=== PATIENT | male | born 1950 | race African-American/Black ===

== ENCOUNTER 2020-03-30 19:43 | Inpatient (IN) | payer MEDICARE, MEDICAID, SELFPAY ==
--- NOTE | 2020-03-30 | ECG_ITS ---
Test Reason : GI BLEED Blood Pressure : / mmHG Vent. Rate : 093 BPM Atrial Rate : 093 BPM P-R Int : 190 ms QRS Dur : 140 ms QT Int : 406 ms P-R-T Axes : 057 -67 114 degrees QTc Int : 504 ms Normal sinus rhythm Right atrial enlargement Right bundle branch block Left anterior fascicular block Bifascicular block Left ventricular hypertrophy with repolarization abnormality Abnormal ECG When compared with ECG of 04-NOV-2019 03:53, Heart rate has increased Referred By: Basim Galo Electronically Signed By:EMELY DOVER MD
--- NOTE | 2020-03-30 | XR_ITS ---
EXAMINATION: XR CHEST CLINICAL INFORMATION: NG tube placement COMPARISON: None TECHNIQUE: Frontal portable view of the chest was obtained. 9:14 PM FINDINGS: Tip of nasogastric tube is in stomach. Lungs are clear. No pulmonary vascular congestion. There is no pleural effusion or pneumothorax. The cardiac and the mediastinal contours are normal. Vascular stent seen in the right upper arm. There are surgical clips in the soft tissues of the left upper extremity. Status post left humeral head replacement. Multilevel degenerative spondylosis spine. IMPRESSION: 1. Nasogastric tube in stomach. 2. No acute abnormality the chest.
[2020-03-30 19:52] VITALS: BP 135/70; BP 156/74; PULSE 90; PULSE 95; RESP 16; TEMP 36.7; O2SAT 98; BMI 23.6
--- NOTE | 2020-03-30 20:29 | ED_ITS ---
HPI - Nausea/Vomiting/Diarrhea General Chief complaint: Nausea/Vomiting/Diarrhea Stated complaint: vomiting Time Seen by Provider: 03/30/20 20:12 Source: patient and EMS History of Present Illness HPI Narrative: 69-year-old male states vomiting since yesterday. States of upper mid abdominal pain. No dizziness. Denies chest pain or shortness of breath. denies any blood from stool however does state in his vomit looks dark red that started earlier today. Did get dialysis today had full dialysis MD elicited complaint: nausea and vomiting Associated nausea: Yes Associated abdominal pain: Yes Severity: mild Quality: cramping Related Data Home Medications Medication Instructions Recorded Confirmed aspirin [Aspir-81] 81 mg 03/30/20 carvedilol 25 mg PO BID 03/30/20 03/30/20 fosinopril 40 mg PO DAILY 03/30/20 03/30/20 megestrol [Megace] 400 mg PO DAILY 03/30/20 03/30/20 minoxidil 5 mg PO BID 03/30/20 03/30/20 nifedipine 90 PO 03/30/20 omeprazole [Prilosec] 20 mg PO DAILY 03/30/20 03/30/20 ondansetron 8 mg 03/30/20 oxycodone-acetaminophen [Percocet] 5 tab 03/30/20 polyethylene glycol 3350 [Miralax] 17 g PO DAILY 03/30/20 03/30/20 rosuvastatin [Crestor] 5 mg PO DAILY 03/30/20 03/30/20 sevelamer carbonate [Renvela] 800 mg PO TID 03/30/20 03/30/20 Allergies Allergy/AdvReac Type Severity Reaction Status Date / Time metformin [METFORMIN] Allergy Intermediate IT MESSES Verified 03/30/20 20:02 ME UP Ogthhyj-Lcz-Pkj Reductase Allergy Intermediate NAUSEA Verified 03/30/20 20:02 Inhibitor [FTEBRVA-MZI-JMC REDUCTASE INHIBITOR] cephalexin [From KEFLEX] Allergy Unknown UNSPECIFIED Verified 03/30/20 20:02 IT MESSES ME UP any form of statin Allergy Unknown Unknown Uncoded 03/30/20 20:02 glucophage Allergy Unknown Diarrhea Uncoded 03/30/20 20:02 Review of Systems Review of Systems: Yes all other systems are reviewed and are negative Constitutional: Constitutional: Reports as per HPI Comments: Constitutional : No Weight loss, No Fever, No Chills, No Night Sweats, No Fatigue, No Malaise ENT/Mouth : No Hearing loss, No Ear Pain, No Nasal Congestion, No Sinus Pain, No Hoarseness, No sore throat, No Rhinorrhea, No Swallowing Difficulty Eyes: No Eye Pain, No Swelling, No Redness, No Foreign Body, No Discharge, No Vision Changes Cardiovascular : No Chest Pain, No SOB, No Dyspnea on Exertion, No Orthopnea, No Edema, No Palpitations Respiratory : No Cough, No Sputum, No Wheezing, No Smoke Exposure, No Dyspnea Gastrointestinal : positiveNausea, positive Vomiting, No Diarrhea, No Constipation, positiveabdominal Pain, No Hematochezia, No Melena Genitourinary : no irregular bleeding, No Dysuria, No Urinary Frequency, No Hematuria, No Urinary Incontinence, No Urgency, No Flank Pain, No Urinary Flow Changes, No Hesitancy Musculoskeletal : No joint pain, No Myalgias, No Joint Swelling Skin : No Skin Lesions, No rash Neuro : No Weakness, No Numbness, No Paresthesias, No Loss of Consciousness, No Dizziness, No Headache Psych : No Anxiety/Panic, No Depression, No SI/HI/AH/VH, No Social Issues, Heme/Lymph: No Bruising, No Bleeding,No Lymphadenopathy Endocrine : No Polyuria, No Polydipsia, No Temperature Intolerance Gastrointestinal: Gastrointestinal: Reports nausea PMFSH Past Medical History Attestation statement: The following information was validated with the patient. Medical History (Updated 03/30/20 @ 23:15 by Basim Galo DO) Diabetes mellitus HTN (hypertension) Presence of arteriovenous dialysis shunt Renal failure Social History Social History Alcohol intake: never Smoking Status: Never smoker Use of substances other than those prescribed or required for medical reasons: No Advance Directives: No Advance Directives Information Provided: No Physical Exam Vital Signs and I&O and Narrative: Vital Signs and I&O: Vital Signs Temp 98.0 F 03/30/20 19:52 Pulse 89 03/30/20 21:41 Resp 16 03/30/20 21:41 BP 135/70 03/30/20 19:52 Pulse Ox 98 03/30/20 21:41 Intake & Output 03/30/20 03/30/20 03/31/20 06:59 18:59 06:59 Intake Total 250 / 250 Balance 250 / 250 Weight 72.575 kg Intake: Intake, IV Amoun t 250 / 250 0.9 % Sodium C hloride 500 ml @ 250 / 250 250 mls/hr IV .Q2H [facility] Rx#: [id number] Body Mass Index 23.6 vital signs reviewed Const: Other: Appearance: Alert. Oriented X3. No acute distress. Eyes: Pupils equal, round and reactive to light. ENT: Pharynx normal. Neck: Normal inspection. Neck supple. No lymph nodes noted. No crepitus CVS: Normal heart rate and rhythm. Pulses normal. Normal S1 and S2 Respiratory: No respiratory distress. Breath sounds normal. No Wheezing. No rales Abdomen: Soft and mild mid abdominal tenderness. No rigidity. No distention. good BS x4 Skin: Skin warm and dry. Normal skin color. Normal skin turgor. Extremities: No lower extremity edema. No lower extremity edema. No Lacerations. No Rash Neuro: Oriented X 3. No motor deficit. No sensory deficit. Moving all extermities. No slurred speech. General: cooperative Course Reevaluation(s) Reevaluation #2: NG tube in place with suction dark brown coffee emesis to clear placed IV PPI type and screen IV fluids were limited secondary to end-stage renal disease however vital signs have been stable I spoke with Dr. Beck GI doctor who agrees with plan for admit. I also spoke with hospitalist Dr. Emanuel zamora will admit the patient re-evaluation at 11:15 stable vital signs patient tolerating NG-tube doing well he continues to clear will remove MDM - Nausea/Vomiting/Diarrhea Medical Records Attestation: I reviewed the patient's medical records. Medical records narrative: discharge in his hospital in October 2023 umbilical hernia repair and hypotension due to hypovolemia secondary to incarcerated umbilical hernia Lab Data Attestation: I reviewed the patient's lab results. Result diagrams: 03/30/20 20:40 03/30/20 20:40 Labs: Lab Results 03/30/20 03/30/20 03/30/20 Range/Units 20:40 20:40 20:40 WBC 13.9 H (4.8-10.8) X10*3/uL RBC 5.81 H (4.60-5.80) X10*6/uL Hgb 16.6 (14.0-18.0) g/dl Hct 52.4 H (42-52) % MCV 90.2 (80-98) fL MCH 28.6 (27.0-33.0) pg MCHC 31.7 (31.0-36.0) g/dl RDW 21.5 H (11.0-16.0) % Plt Count 378 (160-400) X10*3/uL MPV 9.9 (9.4-12.4) fL Immature Gran % (Auto) 0.2 (0.0-0.4) % Neut % (Auto) 91.9 H (45-73) % Lymph % (Auto) 3.6 L (20-40) % [place] % (Auto) 4.2 (2-11) % Eos % (Auto) 0.0 (0-4) % Baso % (Auto) 0.1 (0-2) % Lymph # (Auto) 0.5 L (1.2-4.9) X10*3/uL [place] # (Auto) 0.6 (0.1-1.2) X10*3/uL Eos # (Auto) 0.0 (0.0-0.4) X10*3/uL Baso # (Auto) 0.0 (0.0-0.2) X10*3/uL Abs Immat Gran (auto) 0.03 (0.00-0.03) X10*3/uL Absolute Neuts (auto) 12.8 H (2.0-8.3) X10*3/uL Absolute Nucleated RBC 0.000 (0.0-0.012) X10*3/uL Nucleated RBC % (auto) 0.0 (0.0-0.2) /100WBC Smear Tech's Comments VERIFIED PT 12.6 (10.8-13.0) SEC INR 1.1 (0.9-1.1) APTT 37.1 (24.1-38.0) SEC Sodium 142 (135-145) mmol/L Potassium 4.2 (3.3-5.1) mmol/l Chloride 86 L (96-108) mmol/L Carbon Dioxide 36 H (22-29) mmol/L Anion Gap 24 H (12-20) BUN 33 H (9-16) mg/dL Creatinine 7.47 H* (0.5-1.4) mg/dL Estim Creat Clear Calc 9.4 Estimated GFR 7 Random Glucose 247 H (60-115) mg/dL Calcium 11.0 H (8.4-10.2) mg/dL Total Bilirubin 1.3 H (0.0-1.0) mg/dL Direct Bilirubin 0.4 (0.0-0.5) mg/dL AST 18 (5-37) U/L ALT 14 (0-40) U/L Alkaline Phosphatase 130 H (39-117) U/L Troponin I High Sens (<3.5-35.0) ng/L Total Protein 9.5 H (6.5-8.0) g/dL Albumin 5.2 H (3.5-5.0) g/dL Lipase 153 H (8-78) U/L Blood Type Antibody Screen 03/30/20 03/30/20 Range/Units 20:40 22:17 WBC (4.8-10.8) X10*3/uL RBC (4.60-5.80) X10*6/uL Hgb (14.0-18.0) g/dl Hct (42-52) % MCV (80-98) fL MCH (27.0-33.0) pg MCHC (31.0-36.0) g/dl RDW (11.0-16.0) % Plt Count (160-400) X10*3/uL MPV (9.4-12.4) fL Immature Gran % (Auto) (0.0-0.4) % Neut % (Auto) (45-73) % Lymph % (Auto) (20-40) % [place] % (Auto) (2-11) % Eos % (Auto) (0-4) % Baso % (Auto) (0-2) % Lymph # (Auto) (1.2-4.9) X10*3/uL [place] # (Auto) (0.1-1.2) X10*3/uL Eos # (Auto) (0.0-0.4) X10*3/uL Baso # (Auto) (0.0-0.2) X10*3/uL Abs Immat Gran (auto) (0.00-0.03) X10*3/uL Absolute Neuts (auto) (2.0-8.3) X10*3/uL Absolute Nucleated RBC (0.0-0.012) X10*3/uL Nucleated RBC % (auto) (0.0-0.2) /100WBC Smear Tech's Comments PT (10.8-13.0) SEC INR (0.9-1.1) APTT (24.1-38.0) SEC Sodium (135-145) mmol/L Potassium (3.3-5.1) mmol/l Chloride (96-108) mmol/L Carbon Dioxide (22-29) mmol/L Anion Gap (12-20) BUN (9-16) mg/dL Creatinine (0.5-1.4) mg/dL Estim Creat Clear Calc Estimated GFR Random Glucose (60-115) mg/dL Calcium (8.4-10.2) mg/dL Total Bilirubin (0.0-1.0) mg/dL Direct Bilirubin (0.0-0.5) mg/dL AST (5-37) U/L ALT (0-40) U/L Alkaline Phosphatase (39-117) U/L Troponin I High Sens 90.0 H (<3.5-35.0) ng/L Total Protein (6.5-8.0) g/dL Albumin (3.5-5.0) g/dL Lipase (8-78) U/L Blood Type O Positive Antibody Screen NEGATIVE ECG Data Attestation: I personally reviewed and interpreted this ECG as follows: Interpretation: 93 beats per minute sinus rhythm inverted T-waves V1 through 3 rightward access normal [place] intervals no changes from previous EKGs Critical Care Time Critical Care Time Critical Care Time: Yes Total Critical Care Time: 35 Attestation: I attest to my critical care time. Multiple re-evaluations done by meet in order to make sure patient was then continue with vomiting. Vital signs were stable throughout course patient was typed and screened started on PPI Discharge Plan Discharge Clinical Impression: Acute upper gastrointestinal bleeding Patient Disposition: Admitted As Inpatient
[2020-03-30 20:49] LABS: Basophils Percent Auto 0.1 % (0-2); Hematocrit 52.4 % (42-52); Hemoglobin 16.6 g/dl (14.0-18.0); Imm Gran Abs Auto 0.03 X10*3/uL (0.00-0.03); Imm Gran Pct Auto 0.2 % (0.0-0.4); Lymphocytes Absolute Auto 0.5 X10*3/uL (1.2-4.9); Lymphocytes Percent Auto 3.6 % (20-40); MANUAL DIFF FLAG SCAN; Mean Corpuscular HGB Conc 31.7 g/dl (31.0-36.0); Mean Corpuscular Hemoglobin 28.6 pg (27.0-33.0); Mean Corpuscular Volume 90.2 fL (80-98); Mean Platelet Volume 9.9 fL (9.4-12.4); Monocytes Absolute Auto 0.6 X10*3/uL (0.1-1.2); Monocytes Percent Auto 4.2 % (2-11); Neutrophils Absolute Auto 12.8 X10*3/uL (2.0-8.3); Neutrophils Percent Auto 91.9 % (45-73); Platelet Count 378 X10*3/uL (160-400); Red Blood Count 5.81 X10*6/uL (4.60-5.80); Red Cell Distribution Width 21.5 % (11.0-16.0); SCAN SMEAR FLAG 1; White Blood Count 13.9 X10*3/uL (4.8-10.8)
[2020-03-30] MEDS: Morphine Sulfate 4 MG/ML CARTRIDGE IVPUSH (20:59)
[2020-03-30] MEDS: Pantoprazole Sodium 40 MG/10 ML VIAL 80 MG IVPUSH (20:59)
[2020-03-30] MEDS: ondansetron HCL 4 MG/2 ML VIAL IVPUSH (21:04)
[2020-03-30] MEDS: 0.9 % Sodium Chloride 500 ML 250 ML IV (21:05)
[2020-03-30 21:11] LABS: SLIDE REVIEW VERIFIED
[2020-03-30 21:15] LABS: Alanine Aminotransferase 14 U/L (0-40); Albumin Level 5.2 g/dL (3.5-5.0); Alkaline Phosphatase 130 U/L (39-117); Anion Gap 24 (12-20); Aspartate Amino Transferase 18 U/L (5-37); Bilirubin Direct 0.4 mg/dL (0.0-0.5); Bilirubin Total 1.3 mg/dL (0.0-1.0); Blood Urea Nitrogen 33 mg/dL (9-16); Carbon Dioxide 36 mmol/L (22-29); Chloride 86 mmol/L (96-108); Glucose Random 247 mg/dL (60-115); INTERNATIONAL NORM RATIO 1.1 (0.9-1.1); Potassium 4.2 mmol/l (3.3-5.1); Prothrombin Time 12.6 SEC (10.8-13.0); Sodium 142 mmol/L (135-145); Total Protein 9.5 g/dL (6.5-8.0)
[2020-03-30 21:18] LABS: Creatinine Clr Calc Pharmacy 9.4; Estimated Glomerular Filt Rate 7; Lipase 153 U/L (8-78); Partial Thromboplastin Time 37.1 SEC (24.1-38.0)
[2020-03-30 21:41] VITALS: PULSE 89; RESP 16; O2SAT 98
[2020-03-30] MEDS: Lidocaine HCl 2 % Urojet 10 ML JEL.PF.APP TOPICAL (22:39)
[2020-03-31] VITALS (22 sets, daily range): BP systolic 91–150; BP diastolic 29–77; PULSE 69–91; RESP 12–20; TEMP 36.1–37.1; O2SAT 94–100
--- NOTE | 2020-03-31 00:22 | P.HPIM_ITS ---
History of Present Illness Date of Service: 03/31/20 Chief Complaint: Hematemesis 69 y/o male who presented from home due to several episodes of vomiting blood Per history provided by the patient, has a hx of upper GI bleed which was 2 years ago. Now presents with 2 days of multiple episodes of vomiting blood which started suddently of unknown etiology. Patient reports that has been unable to eat or drink anything since as cannot tolerate. Reported that last EGD was done 3 years ago but cannot recall if had a colonoscopy done. Patient was recently admitted to our hospital in october of present year due to incarcerated umbilical hernia. On presentation to the ED patient BP was noted to be stable, mild tachycardia of 95 bpm which improved after fluid administration per the ED. NGT was inserted and was noted black gastric secretions coming out, STAT labs showed stable hgb, WBC of 13, elevated AG of 24 with BUN of 33 and elevated troponin level of 90 but patient denying any chest pain or SOB. Patient started on IV PPI per ED attending, placed NPO and Decision for admission given. Patient evaluated at the bedside, laying down in bed in no acute distres. NGT in place not draining anything at present. IV PPI running. Comfortable. ROS as above otherwise negative. Physical exam as above otherwise unremarkable. PMhx: End-stage renal failure on hemodialysis TTS Essential hypertension GERD Diabetes mellitus Congestive heart failure PAST SURGICAL HISTORY: Left shoulder arthroplasty, left hip Left great toe amputation Repair of incarcerated umbilical hernia 11/04/2019 Toxic habits: Does not reports any hx of alcohol abuse, smoking or IVDA Review of Systems Gastrointestinal: Gastrointestinal: Reports other (vomiting blood ) [facility] Medical History Diabetes mellitus HTN (hypertension) Presence of arteriovenous dialysis shunt Renal failure Functional capacity: independent ambulation Family history: reviewed and not pertinent Social History Alcohol intake: never Smoking Status: Never smoker Use of substances other than those prescribed or required for medical reasons: No Advance Directives: No Advance Directives Information Provided: No Meds Allergies Allergy/AdvReac Type Severity Reaction Status Date / Time metformin [METFORMIN] Allergy Intermediate IT MESSES Verified 03/30/20 20:02 ME UP Wmnasnb-Hux-Npw Reductase Allergy Intermediate NAUSEA Verified 10/08/20 20:02 Inhibitor [NVWXUHP-CBD-EYZ REDUCTASE INHIBITOR] cephalexin [From KEFLEX] Allergy Unknown UNSPECIFIED Verified 03/30/20 20:02 IT MESSES ME UP any form of statin Allergy Unknown Unknown Uncoded 03/30/20 20:02 glucophage Allergy Unknown Diarrhea Uncoded 03/30/20 20:02 Home Medications Medication Instructions Recorded Confirmed Type aspirin [Aspir-81] 81 mg 03/30/20 History carvedilol 25 mg PO BID 03/30/20 03/30/20 History fosinopril 40 mg PO DAILY 03/30/20 03/30/20 History megestrol [Megace] 400 mg PO DAILY 03/30/20 03/30/20 History minoxidil 5 mg PO BID 03/30/20 03/30/20 History nifedipine 90 PO 03/30/20 History omeprazole [Prilosec] 20 mg PO DAILY 03/30/20 03/30/20 History ondansetron 8 mg 03/30/20 History oxycodone-acetaminophen [Percocet] 5 tab 03/30/20 History polyethylene glycol 3350 [Miralax] 17 g PO DAILY 03/30/20 03/30/20 History rosuvastatin [Crestor] 5 mg PO DAILY 03/30/20 03/30/20 History sevelamer carbonate [Renvela] 800 mg PO TID 03/30/20 03/30/20 History Physical Exam Vital Signs and Narrative: Vital Signs: Last Vital Signs Temp 98.5 F 03/31/20 00:10 Pulse 89 03/31/20 00:10 Resp 16 03/31/20 00:10 BP 133/66 03/31/20 00:10 Pulse Ox 98 03/31/20 00:10 Body Mass Index 23.6 Const: General: cooperative, comfortable and no acute distress Orientation/consciousness: patient oriented x3 HENMT: Head: Yes normal to inspection Face and sinus: Yes other (NGT in place ) Eyes: General: appearance normal, both eyes and all related structures Neck: Yes normal visual inspection and Yes full ROM Chest: Chest palpation & inspection: normal inspection of the chest Resp: Effort & Inspection: normal respiratory effort Cardio: Jugular venous distension: no JVD Rhythm: regular rhythm Heart sounds: S1 normal heart sound present and S2 normal heart sound present GI: Inspection: Yes normal to inspection Skin: General skin exam: no rashes or lesions noted Neuro: General: patient oriented x3 Psych: Appearance: grossly normal Results Labs Labs: Laboratory Tests 03/30/20 03/30/20 03/30/20 20:40 20:40 20:40 WBC 13.9 H RBC 5.81 H Hgb 16.6 Hct 52.4 H MCV 90.2 MCH 28.6 MCHC 31.7 RDW 21.5 H Plt Count 378 MPV 9.9 Immature Gran % (Auto) 0.2 Neut % (Auto) 91.9 H Lymph % (Auto) 3.6 L [place] % (Auto) 4.2 Eos % (Auto) 0.0 Baso % (Auto) 0.1 Lymph # (Auto) 0.5 L [place] # (Auto) 0.6 Eos # (Auto) 0.0 Baso # (Auto) 0.0 Abs Immat Gran (auto) 0.03 Absolute Neuts (auto) 12.8 H Absolute Nucleated RBC 0.000 Nucleated RBC % (auto) 0.0 Smear Tech's Comments VERIFIED PT 12.6 INR 1.1 APTT 37.1 Sodium 142 Potassium 4.2 Chloride 86 L Carbon Dioxide 36 H Anion Gap 24 H BUN 33 H Creatinine 7.47 H* Estim Creat Clear Calc 9.4 Estimated GFR 7 Random Glucose 247 H Calcium 11.0 H Total Bilirubin 1.3 H Direct Bilirubin 0.4 AST 18 ALT 14 Alkaline Phosphatase 130 H Troponin I High Sens Total Protein 9.5 H Albumin 5.2 H Lipase 153 H Blood Type Antibody Screen 03/30/20 03/30/20 20:40 22:17 WBC RBC Hgb Hct MCV MCH MCHC RDW Plt Count MPV Immature Gran % (Auto) Neut % (Auto) Lymph % (Auto) [place] % (Auto) Eos % (Auto) Baso % (Auto) Lymph # (Auto) [place] # (Auto) Eos # (Auto) Baso # (Auto) Abs Immat Gran (auto) Absolute Neuts (auto) Absolute Nucleated RBC Nucleated RBC % (auto) Smear Tech's Comments PT INR APTT Sodium Potassium Chloride Carbon Dioxide Anion Gap BUN Creatinine Estim Creat Clear Calc Estimated GFR Random Glucose Calcium Total Bilirubin Direct Bilirubin AST ALT Alkaline Phosphatase Troponin I High Sens 90.0 H Total Protein Albumin Lipase Blood Type O Positive Antibody Screen NEGATIVE Assessment and Plan (1) Acute upper gastrointestinal bleeding: Status: Acute Hemodynamically stable at present. Hgb of 16 Leukocytosis of 13 likely reactive Elevated AG of 24 likely due to hyperammonemia NGT in place NPO as of now Follow up Repeat CBC for Hgb as ordered Continue with IV PPI Hold Aspirin GI consult in the am for possible EGD/Colonoscopy (2) Diabetes mellitus: Status: Acute Insulin regimen as ordered (3) HTN (hypertension): Status: Acute conitnue with carvedilol home dose continue with fosinopril home dose continue with nifedipine home dose (4) Renal failure: Problem details: PT ON DIALYSIS Status: Acute HD TTS continue with sevelamer home dose Nephrology consult for arrangement of HD (5) Hyperlipidemia: Status: Acute continue with statin home dose
[2020-03-31] MEDS: LORazepam 2 MG/ML VIAL 1 MG IVPUSH (00:27)
[2020-03-31] MEDS: Heparin Sodium,Porcine 5,000 UNIT/ML VIAL 5000 UNIT SUBCUT (02:11)
[2020-03-31] MEDS: carvediloL 25 MG TABLET PO ×2 (09:38→21:26)
[2020-03-31] MEDS: 0.9 % Sodium Chloride Flush 3 ML SYRINGE IVFLUSH ×3 (09:38→21:27)
[2020-03-31] MEDS: Atorvastatin Calcium 20 MG TABLET PO (09:38)
[2020-03-31] MEDS: lisinopriL 40 MG TABLET PO (09:39)
[2020-03-31] MEDS: minoxidiL 2.5 MG TABLET 5 MG PO ×2 (09:39→21:25)
[2020-03-31 12:26] LABS: Glucose, Whole Blood 150 mg/dL (60-115)
[2020-03-31 12:33] LABS: Hemoglobin 15.2 g/dl (14.0-18.0); Mean Corpuscular HGB Conc 30.4 g/dl (31.0-36.0); Mean Corpuscular Volume 92.3 fL (80-98); Mean Platelet Volume 9.9 fL (9.4-12.4); NRBC Pct Auto 0.1 /100WBC (0.0-0.2); Platelet Count 335 X10*3/uL (160-400); Red Blood Count 5.42 X10*6/uL (4.60-5.80); Red Cell Distribution Width 21.6 % (11.0-16.0); White Blood Count 15.4 X10*3/uL (4.8-10.8)
--- NOTE | 2020-03-31 12:44 | P.CONAN_ITS ---
HPI - Anesthesia Eval Consult details Narrative: Hematemesis x 2 days PMFSH Past Medical History Medical History (Updated 03/31/20 @ 12:59 by Trini Corbin) CHF (congestive heart failure) Diabetes mellitus GERD (gastroesophageal reflux disease) HTN (hypertension) Presence of arteriovenous dialysis shunt Renal failure Functional capacity: independent ambulation Family History Family history of problems with anesthesia: No Surgical History History of Problems with Anesthesia: No Social History Social History Household Members: None Housing: Apartment Do you presently have visiting nurse or other home services: Yes ([employer]KING WORK[employer]) Alcohol intake: never Smoking Status: Never smoker Smoked in Last 30 Days: No Use of substances other than those prescribed or required for medical reasons: No Have you been hit, kicked, punched, or otherwise hurt by someone within the past year? If so, by whom?: No Do you feel safe in your current relationship?: No Current Relationship Is there a partner from a previous relationship who is making you feel unsafe now?: No Are you made to feel afraid or neglected: No Advance Directives: No Advance Directives Information Provided: Yes Do you have thoughts of harming others: None Do you have a plan to hurt others: No Plan Recently lost weight without trying: Yes Meds Allergies Allergy/AdvReac Type Severity Reaction Status Date / Time metformin [METFORMIN] Allergy Intermediate IT MESSES Verified 03/30/20 20:02 ME UP Lezadvo-Abl-Qgq Reductase Allergy Intermediate NAUSEA Verified 03/30/20 20:02 Inhibitor [RJZCYHX-AVM-WCE REDUCTASE INHIBITOR] cephalexin [From KEFLEX] Allergy Unknown UNSPECIFIED Verified 03/30/20 20:02 IT MESSES ME UP any form of statin Allergy Unknown Unknown Uncoded 03/30/20 20:02 glucophage Allergy Unknown Diarrhea Uncoded 03/30/20 20:02 Home Medications Medication Instructions Recorded Confirmed Type aspirin [Aspir-81] 81 mg 03/30/20 History carvedilol 25 mg PO BID 03/30/20 03/30/20 History fosinopril 40 mg PO DAILY 03/30/20 03/30/20 History megestrol [Megace] 400 mg PO DAILY 03/30/20 03/30/20 History minoxidil 5 mg PO BID 03/30/20 03/30/20 History nifedipine 90 PO 03/30/20 History omeprazole [Prilosec] 20 mg PO DAILY 03/30/20 03/30/20 History ondansetron 8 mg PO 03/30/20 History polyethylene glycol 3350 [Miralax] 17 g PO DAILY 03/30/20 03/30/20 History rosuvastatin [Crestor] 5 mg PO DAILY 03/30/20 03/30/20 History sevelamer carbonate [Renvela] 800 mg PO TID 03/30/20 03/30/20 History Exam Exam Date and Time: March 31, 2020 1244 Height,Weight and Vital Signs: Height 5 ft 9 in Weight 72.575 kg Last Vital Signs Temp 97.8 F 03/31/20 12:13 Pulse 90 03/31/20 12:13 Resp 18 03/31/20 12:13 BP 99/47 L 03/31/20 12:13 Pulse Ox 98 03/31/20 12:13 Pertinent Lab Results Pertinent Lab Results: EK03/30/2020 Normal sinus rhythm.93 Right atrial enlargement Right bundle branch block Left anterior fascicular block Bifascicular block Left ventricular hypertrophy with repolarization abnormality Anterior infarct , age undetermined Abnormal ECG When compared with ECG of 04-NOV-2019 03:53, Anterior infarct is now Present. POC: 150mg/dL Laboratory Tests 03/30/20 03/30/20 03/30/20 20:40 20:40 20:40 WBC 13.9 H RBC 5.81 H Hgb 16.6 Hct 52.4 H MCV 90.2 MCH 28.6 MCHC 31.7 RDW 21.5 H Plt Count 378 MPV 9.9 Immature Gran % (Auto) 0.2 Neut % (Auto) 91.9 H Lymph % (Auto) 3.6 L [place] % (Auto) 4.2 Eos % (Auto) 0.0 Baso % (Auto) 0.1 Lymph # (Auto) 0.5 L [place] # (Auto) 0.6 Eos # (Auto) 0.0 Baso # (Auto) 0.0 Abs Immat Gran (auto) 0.03 Absolute Neuts (auto) 12.8 H Absolute Nucleated RBC 0.000 Nucleated RBC % (auto) 0.0 Smear Tech's Comments VERIFIED PT 12.6 INR 1.1 APTT 37.1 Sodium 142 Potassium 4.2 Chloride 86 L Carbon Dioxide 36 H Anion Gap 24 H BUN 33 H Creatinine 7.47 H* Estim Creat Clear Calc 9.4 Estimated GFR 7 POC Glucose Random Glucose 247 H Calcium 11.0 H Total Bilirubin 1.3 H Direct Bilirubin 0.4 AST 18 ALT 14 Alkaline Phosphatase 130 H Troponin I High Sens Total Protein 9.5 H Albumin 5.2 H Lipase 153 H Blood Type Antibody Screen 03/30/20 03/30/20 03/31/20 20:40 22:17 11:42 WBC 15.4 H RBC 5.42 Hgb 15.2 Hct 50.0 MCV 92.3 MCH 28.0 MCHC 30.4 L RDW 21.6 H Plt Count 335 MPV 9.9 Immature Gran % (Auto) Neut % (Auto) Lymph % (Auto) [place] % (Auto) Eos % (Auto) Baso % (Auto) Lymph # (Auto) [place] # (Auto) Eos # (Auto) Baso # (Auto) Abs Immat Gran (auto) Absolute Neuts (auto) Absolute Nucleated RBC 0.020 H Nucleated RBC % (auto) 0.1 Smear Tech's Comments PT INR APTT Sodium Potassium Chloride Carbon Dioxide Anion Gap BUN Creatinine Estim Creat Clear Calc Estimated GFR POC Glucose Random Glucose Calcium Total Bilirubin Direct Bilirubin AST ALT Alkaline Phosphatase Troponin I High Sens 90.0 H Total Protein Albumin Lipase Blood Type O Positive Antibody Screen NEGATIVE 03/31/20 12:23 WBC RBC Hgb Hct MCV MCH MCHC RDW Plt Count MPV Immature Gran % (Auto) Neut % (Auto) Lymph % (Auto) [place] % (Auto) Eos % (Auto) Baso % (Auto) Lymph # (Auto) [place] # (Auto) Eos # (Auto) Baso # (Auto) Abs Immat Gran (auto) Absolute Neuts (auto) Absolute Nucleated RBC Nucleated RBC % (auto) Smear Tech's Comments PT INR APTT Sodium Potassium Chloride Carbon Dioxide Anion Gap BUN Creatinine Estim Creat Clear Calc Estimated GFR POC Glucose 150 H Random Glucose Calcium Total Bilirubin Direct Bilirubin AST ALT Alkaline Phosphatase Troponin I High Sens Total Protein Albumin Lipase Blood Type Antibody Screen Airway Mallampati Class: II TM Dist: >3cm Neck ROM: Full Loose/Missing/Broken Teeth: Yes (Missing) Heart: RRR Lungs: CTAB Assessment and Plan Assessment Anesthesia Assessment: Anesthesia Plan Discussed and Chart Reviewed Final Anesthetic Review NPO: Yes ASA Class: III Final Preanesthetic Review: No Changes in Pt Med Stat, Meds/Allgs Chart Reviewed, Consent Obtained/Reviewed and Anes Risks/Benef Reviewed Patient Risk: Intermediate Procedure Risk: Intermediate Anesthetic Plan Anesthetic Plan: MAC: Disposition: Standard PACU
--- NOTE | 2020-03-31 12:45 | MHC.SHP ---
Pre-Procedural Eval Section A The patient is an INPATIENT: Yes The History & Physical has been completed within 30 days and I have reviewed it.: Yes Section B Chief Complaint: vomiting Allergies: Allergies Allergy/AdvReac Type Severity Reaction Status Date / Time metformin [METFORMIN] Allergy Intermediate IT MESSES Verified 03/30/20 20:02 ME UP Xacsqml-Qao-Goz Reductase Allergy Intermediate NAUSEA Verified 03/30/20 20:02 Inhibitor [[id number] REDUCTASE INHIBITOR] cephalexin [From KEFLEX] Allergy Unknown UNSPECIFIED Verified 03/30/20 20:02 IT MESSES ME UP any form of statin Allergy Unknown Unknown Uncoded 03/30/20 20:02 glucophage Allergy Unknown Diarrhea Uncoded 03/30/20 20:02 Plan Patient has been examined and remains a candidate for the planned procedure
[2020-03-31] MEDS: 0.9 % Sodium Chloride 1,000 ML 50 ML IVCONT (12:58)
--- NOTE | 2020-03-31 13:06 | PM.OP ---
Brief Operative Note Date of procedure: 03/31/20 Pre-op diagnosis: GI Bleed Post-op diagnosis: other (Erosive esophagitis) Procedure: EGD Surgeon: Kenny Beck Anesthesia: MAC Estimated blood loss (mL): 0 Pathology: none sent Condition: stable Disposition: PACU
--- NOTE | 2020-03-31 13:08 | PM.EVENT ---
Event Note Event Note: EGD - note dictated erosive esophagitis without bleeding advance diet bid ppi d/c when stable
--- NOTE | 2020-03-31 14:32 | P.PNIM_ITS ---
Subjective Subjective Date of Service: 03/31/20 Interval History: upper GI bleed Review of Systems patient came with the question of hematemesis, denies any new complaints no new episode of hematemesis in hospital. Physical Exam Vital Signs and I&O and Narrative: Vital Signs and I&O: Vital Signs Temp 98.7 F 03/31/20 14:15 Pulse 77 03/31/20 14:15 Resp 18 03/31/20 14:15 BP 113/52 L 03/31/20 14:15 Pulse Ox 98 03/31/20 14:15 Intake & Output 03/30/20 03/31/20 03/31/20 18:59 06:59 18:59 Intake Total 250 / 250 374.6 / 374.6 Output Total 0 / 0 Balance 250 / 250 374.6 / 374.6 Urine Output (Aver age ml/kg/hr) 0.00 0.00 Weight 72.575 kg Intake: Intake, Oral [place] unt 200 / 200 Intake, IV Amoun t 250 / 250 174.6 / 174.6 0.9 % Sodium C hloride 500 ml @ 250 / 250 250 mls/hr IV .Q2H SAMI Rx#: [id number] Pantoprazole S odium 80 mg In 0. 174.6 / 174.6 9 % Sodium Chl oride 100 ml @ 8 MG/HR 12 mls/h r IV .Q10H SAMI Rx #:[id number] Output: Output, Urine Am ount 0 / 0 Other: NPO Yes Body Mass Index 23.6 Cvs: [id number], [id number] , no murmur res: clear to auscultation ,no rhonchii or wheezing abd: no rebound or guarding ,nt, bs present. ext pulses present , no cyanosis neuro: axo3 , nonfocal. Objective Data Current Medications Generic Name Dose Route Start Last Admin Trade Name Freq PRN Reason Stop Dose Admin Atorvastatin Calcium 20 mg 03/31/20 09:00 03/31/20 09:38 Atorvastatin Calcium 20 Mg Tablet PO 20 mg DAILY SAMI Administration Carvedilol 25 mg 03/31/20 09:00 03/31/20 09:38 Carvedilol 25 Mg Tablet PO 25 mg BID SAMI Administration Protocol Sodium Chloride 1,000 mls @ 50 mls/hr 03/31/20 13:00 03/31/20 12:58 Ns IVCONT 50 mls/hr .Q20H SAMI Administration Lisinopril 40 mg 03/31/20 09:00 03/31/20 09:39 Lisinopril 40 Mg Tablet PO 40 mg DAILY SAMI Administration Minoxidil 5 mg 03/31/20 09:00 03/31/20 09:39 Minoxidil 2.5 Mg Tablet PO 5 mg BID SAMI Administration Omeprazole 40 mg 03/31/20 16:30 Omeprazole 40 Mg Capsule.Dr PO BID@0730,9080 [facility] Ondansetron HCl 4 mg 03/31/20 12:56 Ondansetron Hcl 4 Mg/2 Ml Vial IVPUSH ONCE PRN Nausea and Vomiting Sevelamer HCl 800 mg 03/31/20 09:00 03/31/20 09:38 Sevelamer Hcl 800 Mg Tablet PO 800 mg TID SAMI Administration Sodium Chloride 3 ml 03/31/20 08:00 03/31/20 09:38 0.9 % Sodium Chloride Flush 3 Ml Syringe IVFLUSH 3 ml QSHIFT SAMI Administration Labs CBC & Chem 7: 04/01/20 06:03 04/01/20 06:03 Labs: Laboratory Results - last 24 hr 03/30/20 03/30/20 03/30/20 20:40 20:40 20:40 MCV 90.2 MCH 28.6 MCHC 31.7 RDW 21.5 H Plt Count 378 MPV 9.9 Immature Gran % (Auto) 0.2 Neut % (Auto) 91.9 H Lymph % (Auto) 3.6 L [place] % (Auto) 4.2 Eos % (Auto) 0.0 Baso % (Auto) 0.1 Lymph # (Auto) 0.5 L [place] # (Auto) 0.6 Eos # (Auto) 0.0 Baso # (Auto) 0.0 Abs Immat Gran (auto) 0.03 Absolute Neuts (auto) 12.8 H Absolute Nucleated RBC 0.000 Nucleated RBC % (auto) 0.0 Smear Tech's Comments VERIFIED PT 12.6 INR 1.1 APTT 37.1 Anion Gap 24 H Estim Creat Clear Calc 9.4 Estimated GFR 7 POC Glucose Random Glucose 247 H Calcium 11.0 H Total Bilirubin 1.3 H Direct Bilirubin 0.4 AST 18 ALT 14 Alkaline Phosphatase 130 H Troponin I High Sens Total Protein 9.5 H Albumin 5.2 H Lipase 153 H Blood Type Antibody Screen 03/30/20 03/30/20 03/31/20 20:40 22:17 11:42 MCV 92.3 MCH 28.0 MCHC 30.4 L RDW 21.6 H Plt Count 335 MPV 9.9 Immature Gran % (Auto) Neut % (Auto) Lymph % (Auto) [place] % (Auto) Eos % (Auto) Baso % (Auto) Lymph # (Auto) [place] # (Auto) Eos # (Auto) Baso # (Auto) Abs Immat Gran (auto) Absolute Neuts (auto) Absolute Nucleated RBC 0.020 H Nucleated RBC % (auto) 0.1 Smear Tech's Comments PT INR APTT Anion Gap Estim Creat Clear Calc Estimated GFR POC Glucose Random Glucose Calcium Total Bilirubin Direct Bilirubin AST ALT Alkaline Phosphatase Troponin I High Sens 90.0 H Total Protein Albumin Lipase Blood Type O Positive Antibody Screen NEGATIVE 03/31/20 12:23 MCV MCH MCHC RDW Plt Count MPV Immature Gran % (Auto) Neut % (Auto) Lymph % (Auto) [place] % (Auto) Eos % (Auto) Baso % (Auto) Lymph # (Auto) [place] # (Auto) Eos # (Auto) Baso # (Auto) Abs Immat Gran (auto) Absolute Neuts (auto) Absolute Nucleated RBC Nucleated RBC % (auto) Smear Tech's Comments PT INR APTT Anion Gap Estim Creat Clear Calc Estimated GFR POC Glucose 150 H Random Glucose Calcium Total Bilirubin Direct Bilirubin AST ALT Alkaline Phosphatase Troponin I High Sens Total Protein Albumin Lipase Blood Type Antibody Screen Progress Note: A&P (1) Acute upper gastrointestinal bleeding: Problem details: no new episode . Status: Acute (2) Renal failure: Problem details: PT ON DIALYSIS. Last dialysed 03/30/2020 Status: Acute Assessment and Plan: 1.Upper GI bleed: Hemodynamically stable at present. Hgb of 16 repeated h/h 15.6 Leukocytosis of 13-15.4 -thought to be likely reactive NGT in place NPO as of now Continue with IV PPI Hold Aspirin moniter h/h GI eval pending Blood pressure after the EGDs seems borderline, patient is NPO since yesterday, also has hematemesis upon admission: Will monitor blood pressure closely, give 500 mL bolus and repeat an H&H. 2.HD TTS continue with sevelamer home dose Nephrology consult for arrangement of HD
--- NOTE | 2020-03-31 15:17 | MHC.CM.PN ---
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 HE REPORTS THE CLINICAL RESEARCH MANAGEMENT ASSOCIATE ASSISTS WITH ANYTHING HE NEEDS INCLUDING PERSONAL CARE, HOUSEKEEPING, MEALS, AND SHOPPING. PT REPORTS HE GOES TO [facility] ON AND USES [employer] TO GET THERE. PT COMPLETED A HCP TODAY NAMING HIS SON, GREG ([phone]) HIS PRIMARY AND HIS ESTRANGED WITH FER ([phone]) HIS ALTERNATE AGENT. PTS CURRENT DC PLAN IS HOME WITH RESUMPTION OF HIS HOME HEALTH CARE PT WILL NEED A CHAIR VAN AT DISCHARGE
[2020-03-31] MEDS: Omeprazole 40 MG CAPSULE.DR PO (15:52)
[2020-03-31 16:31] LABS: Hematocrit 47.5 % (42-52); Hemoglobin 14.7 g/dl (14.0-18.0)
--- NOTE | 2020-03-31 16:40 | OP_ITS ---
SURGEON: Kenny Beck MD INDICATIONS: Upper gastrointestinal bleeding. PREOPERATIVE DIAGNOSIS: POSTOPERATIVE DIAGNOSIS: PROCEDURE PERFORMED: Upper endoscopy. ESTIMATED BLOOD LOSS: COMPLICATIONS: ANESTHESIA: ASSISTANTS: SPECIMENS: MEDICATIONS: Monitored anesthesia care. DESCRIPTION OF PROCEDURE: History and physical performed. The risks and benefits of the procedure were explained to the patient. Informed consent was obtained. The patient was placed in the left lateral decubitus position. The Olympus video gastroscope was introduced into the esophagus, stomach, and duodenum. Examination was performed and the scope was removed. He tolerated the procedure well, returned to recovery area in stable condition. FINDINGS: Esophagus: There was erosive esophagitis beginning at the EG junction at 35 cm and extending up to about 23 cm with ulceration and friability. There was no bleeding. Stomach: The stomach showed no evidence of masses, ulcers, or polyps. Duodenum: The bulb and second portion were normal. IMPRESSION: Erosive esophagitis. RECOMMENDATIONS: 1. Advanced diet. 2. B.i.d. proton pump inhibitor. 3. Discharge when stable. MD OSIRIS Maldonado/MODL / [id number]
--- NOTE | 2020-03-31 17:30 | CONS_ITS ---
DATE OF SERVICE: 03/31/2020 REFERRING PHYSICIAN: Natalie Bueno REASON FOR CONSULTATION: GI bleeding. HISTORY OF PRESENT ILLNESS: The patient is a 69-year-old man, who was admitted to the hospital on March 31 after presenting to the emergency room with complaints of hematemesis. He reports a previous episode of upper GI bleeding with a possible ulcer 2 to 3 years ago. He presented to the emergency room with complaints of hematemesis. This happened several times at home. He was evaluated in the emergency department and NG tube was placed with black gastric secretions removed. He was admitted to the hospital. His hematocrit on admission was 52.4 and followup hematocrit was 50 this morning. He has had no melena. He denies use of chronic NSAIDs. He states he rarely uses alcohol and does not smoke. He has no complaints of heartburn. PAST MEDICAL HISTORY: 1. Gastroesophageal reflux disease. 2. Hypertension. 3. Diabetes. 4. Congestive heart failure. 5. Renal failure, on hemodialysis. 6. Shoulder surgery. 7. Umbilical hernia repair. 8. Hip arthroplasty. 9. Amputation of left great toe. CURRENT MEDICATIONS: His current medication list is reviewed in the chart. ALLERGIES: MULTIPLE MEDICATION ALLERGIES ARE REVIEWED. FAMILY HISTORY: This is reviewed with the patient and is noncontributory. SOCIAL HISTORY: There is no current tobacco, alcohol, or substance abuse. REVIEW OF SYSTEMS: SKIN: No pruritus. HEENT: Negative. CARDIOPULMONARY: He denies shortness of breath or chest pain. GASTROINTESTINAL: As above. GENITOURINARY: Negative. NEUROPSYCHIATRIC: Negative. PHYSICAL EXAMINATION: GENERAL: Shows a pleasant male, in no acute distress. VITAL SIGNS: Reviewed in the electronic medical record and are stable. SKIN: Anicteric. HEENT: No scleral icterus. NECK: Without lymphadenopathy or thyromegaly. LUNGS: Clear. HEART: Shows a regular rate and rhythm. S1, S2. No murmur. ABDOMEN: Soft without focal masses or tenderness. Bowel sounds are present. No organomegaly is noted. EXTREMITIES: Without edema. LABORATORY DATA: Reviewed. IMPRESSION: Upper gastrointestinal bleeding. We discussed the differential diagnosis for this including peptic ulcer disease, erosive esophagitis, malignancy and gastritis. We recommended further evaluation with upper endoscopy. We discussed risks and benefits of the procedure today. He understands these and agrees to proceed. MD OSIRIS Maldonado/DIGNA / [phone]
[2020-03-31] MEDS: LORazepam 0.5 MG TABLET PO (21:26)
[2020-03-31] MEDS: ondansetron HCL 4 MG/2 ML VIAL IVPUSH (21:26)
[2020-04-01] VITALS (12 sets, daily range): BP systolic 78–113; BP diastolic 45–56; PULSE 68–75; RESP 18–20; TEMP 35.9–37.1; O2SAT 84–100
--- NOTE | 2020-04-01 03:28 | PC.NURSE ---
Patient's BP noted to be low 78/50 manually. He has no other complaints at this time- provider made aware will continue to monitor.
[2020-04-01] MEDS: 0.9 % Sodium Chloride 500 ML 999 ML IVCONT (03:43)
[2020-04-01] MEDS: Omeprazole 40 MG CAPSULE.DR PO ×2 (06:01→15:21)
[2020-04-01 07:15] LABS: MANUAL DIFF FLAG NO
[2020-04-01 07:27] LABS: Basophils Percent Auto 0.2 % (0-2); Eosinophils Percent Auto 0.3 % (0-4); Hematocrit 44.1 % (42-52); Hemoglobin 13.7 g/dl (14.0-18.0); Imm Gran Abs Auto 0.04 X10*3/uL (0.00-0.03); Imm Gran Pct Auto 0.3 % (0.0-0.4); Lymphocytes Absolute Auto 0.9 X10*3/uL (1.2-4.9); Lymphocytes Percent Auto 7.9 % (20-40); Mean Corpuscular HGB Conc 31.1 g/dl (31.0-36.0); Mean Corpuscular Hemoglobin 28.3 pg (27.0-33.0); Mean Corpuscular Volume 91.1 fL (80-98); Mean Platelet Volume 9.9 fL (9.4-12.4); Monocytes Absolute Auto 0.6 X10*3/uL (0.1-1.2); Monocytes Percent Auto 5.3 % (2-11); Neutrophils Absolute Auto 10.2 X10*3/uL (2.0-8.3); Platelet Count 303 X10*3/uL (160-400); Red Blood Count 4.84 X10*6/uL (4.60-5.80); Red Cell Distribution Width 20.6 % (11.0-16.0); White Blood Count 11.8 X10*3/uL (4.8-10.8)
[2020-04-01] MEDS: Atorvastatin Calcium 20 MG TABLET PO (07:52)
[2020-04-01] MEDS: minoxidiL 2.5 MG TABLET 5 MG PO ×2 (07:56→21:13)
[2020-04-01 07:59] LABS: Glucose Random 138 mg/dL (60-115)
[2020-04-01] MEDS: 0.9 % Sodium Chloride 1,000 ML 50 ML IVCONT (07:59)
[2020-04-01] MEDS: 0.9 % Sodium Chloride Flush 3 ML SYRINGE IVFLUSH ×3 (08:10→21:14)
[2020-04-01 08:14] LABS: Anion Gap 25 (12-20); Blood Urea Nitrogen 56 mg/dL (9-16); Calcium 8.6 mg/dL (8.4-10.2); Carbon Dioxide 27 mmol/L (22-29); Chloride 87 mmol/L (96-108); Potassium 4.8 mmol/l (3.3-5.1); Sodium 134 mmol/L (135-145)
[2020-04-01] MEDS: Midodrine HCl 10 MG TABLET PO (09:13)
[2020-04-01 09:17] LABS: Creatinine Clr Calc Pharmacy 7.3; Estimated Glomerular Filt Rate 5
--- NOTE | 2020-04-01 11:35 | P.PNIM_ITS ---
Subjective Subjective Date of Service: 04/01/20 Interval History: esrd, boderline blood pressure. Review of Systems says some nausea , Denies any chest pain or shortness of breath. , lying comfortable in the dialysis. Physical Exam Vital Signs: Vital Signs: Vital Signs Temp Pulse Resp BP Pulse Ox 04/01/20 09:13 75 93/54 L 04/01/20 07:56 75 93/54 L 04/01/20 04:45 70 99/45 L 04/01/20 04:18 68 93/47 L 04/01/20 03:20 97.9 F 72 18 78/50 L 100 03/31/20 23:51 97.9 F 71 108/58 L 97 03/31/20 21:26 69 112/54 L 03/31/20 21:25 69 112/54 L 03/31/20 20:00 98.1 F 69 18 03/31/20 18:37 112/54 L 03/31/20 15:29 97.1 F 71 20 114/59 L 98 03/31/20 15:26 97.1 F 79 20 114/59 L 98 03/31/20 14:40 97.0 F 80 18 91/49 L 94 03/31/20 14:15 98.7 F 77 18 113/52 L 98 03/31/20 14:06 80 18 114/60 100 03/31/20 13:52 82 18 105/50 L 100 03/31/20 13:35 79 16 105/40 L 96 03/31/20 13:30 75 14 107/33 L 99 03/31/20 13:27 76 14 107/29 L 100 03/31/20 13:22 98.7 F 77 12 98/31 L 99 03/31/20 12:13 97.8 F 90 18 99/47 L 98 03/31/20 11:56 98.0 F 89 18 120/59 L 94 Body Mass Index 23.6 physical exam: cvs: [id number], [id number] , no murmur res: clear to auscultation ,no rhonchii or wheezing abd: no rebound or guarding ,nt, bs present. ext pulses present , no cyanosis neuro: axo3 , nonfocal. Objective Data Current Medications Generic Name Dose Route Start Last Admin Trade Name Freq PRN Reason Stop Dose Admin Atorvastatin Calcium 20 mg 03/31/20 09:00 04/01/20 07:52 Atorvastatin Calcium 20 Mg Tablet PO 20 mg DAILY SAMI Administration Carvedilol 25 mg 03/31/20 09:00 04/01/20 07:56 Carvedilol 25 Mg Tablet PO Not Given BID PENDING [facility] TO [facility] Protocol Sodium Chloride 1,000 mls @ 50 mls/hr 03/31/20 13:00 04/01/20 07:59 Ns IVCONT 50 mls/hr .Q20H SAMI Administration Sodium Chloride 500 mls @ 0 mls/hr 03/31/20 15:00 Ns IV .Q0M SAMI Wide Open Sodium Chloride 250 mls @ 0 mls/hr 04/01/20 08:15 Ns IV .Q0M SAMI Wide Open Lisinopril 40 mg 03/31/20 09:00 04/01/20 07:57 Lisinopril 40 Mg Tablet PO Not Given DAILY SAMI Minoxidil 5 mg 03/31/20 09:00 04/01/20 07:56 Minoxidil 2.5 Mg Tablet PO 2.5 mg BID SAMI Administration Omeprazole 40 mg 03/31/20 16:30 04/01/20 06:01 Omeprazole 40 Mg Capsule. PO 40 mg BID@0630,1630 SAMI Administration Ondansetron HCl 4 mg 03/31/20 12:56 03/31/20 21:26 Ondansetron Hcl 4 Mg/2 Ml Vial IVPUSH 4 mg ONCE PRN Administration Nausea and Vomiting Sevelamer HCl 800 mg 03/31/20 09:00 04/01/20 07:51 Sevelamer Hcl 800 Mg Tablet PO 800 mg TID SAMI Administration Sodium Chloride 3 ml 03/31/20 08:00 04/01/20 08:10 0.9 % Sodium Chloride Flush 3 Ml Syringe IVFLUSH 3 ml QSHIFT SAMI Administration Labs CBC & Chem 7: 04/01/20 06:03 04/01/20 06:03 Labs: Laboratory Results - last 24 hr 03/31/20 03/31/20 04/01/20 11:42 12:23 06:03 MCV 92.3 91.1 MCH 28.0 28.3 MCHC 30.4 L 31.1 RDW 21.6 H 20.6 H Plt Count 335 303 MPV 9.9 9.9 Immature Gran % (Auto) 0.3 Neut % (Auto) 86.0 H Lymph % (Auto) 7.9 L [place] % (Auto) 5.3 Eos % (Auto) 0.3 Baso % (Auto) 0.2 Lymph # (Auto) 0.9 L [place] # (Auto) 0.6 Eos # (Auto) 0.0 Baso # (Auto) 0.0 Abs Immat Gran (auto) 0.04 H Absolute Neuts (auto) 10.2 H Absolute Nucleated RBC 0.020 H 0.000 Nucleated RBC % (auto) 0.1 0.0 Anion Gap Estim Creat Clear Calc Estimated GFR POC Glucose 150 H Random Glucose Calcium 04/01/20 06:03 MCV MCH MCHC RDW Plt Count MPV Immature Gran % (Auto) Neut % (Auto) Lymph % (Auto) [place] % (Auto) Eos % (Auto) Baso % (Auto) Lymph # (Auto) [place] # (Auto) Eos # (Auto) Baso # (Auto) Abs Immat Gran (auto) Absolute Neuts (auto) Absolute Nucleated RBC Nucleated RBC % (auto) Anion Gap 25 H Estim Creat Clear Calc 7.3 Estimated GFR 5 POC Glucose Random Glucose 138 H D Calcium 8.6 Progress Note: A&P (1) Acute upper gastrointestinal bleeding: Problem details: no new episode . Status: Acute (2) Renal failure: Problem details: PT ON DIALYSIS. Last dialysed 03/30/2020 Status: Acute Assessment and Plan: 1.Upper GI bleed: Hemodynamically stable at present. Hgb of 16 repeated h/h 15.6 Leukocytosis of 13.7/44-thought to be likely reactive NGT in place NPO as of now Continue with IV PPI Hold Aspirin moniter h/h GI eval pending 2.Blood pressure after the EGDs seems borderline: ? Previous chart review seems like blood pressure fluctuating from high 90s to 100 range, also has hematemesis upon admission: will hold off Coreg, lisinopril, minoxidil. will give dose of midodrine, and fluid if needed. 3.HD TTS continue with sevelamer home dose Nephrology consult for arrangement of HD
--- NOTE | 2020-04-01 13:23 | W.PM.DNNEP ---
Subjective Subjective This patient was seen during dialysis. Interval history: esrd, boderline low blood pressure, asymptomatic Physical Exam Vital Signs: Vital Signs: Vital Signs Temp Pulse Resp BP Pulse Ox 04/01/20 09:13 75 93/54 L 04/01/20 07:56 75 93/54 L 04/01/20 04:45 70 99/45 L 04/01/20 04:18 68 93/47 L 04/01/20 03:20 97.9 F 72 18 78/50 L 100 03/31/20 23:51 97.9 F 71 108/58 L 97 03/31/20 21:26 69 112/54 L 03/31/20 21:25 69 112/54 L 03/31/20 20:00 98.1 F 69 18 03/31/20 18:37 112/54 L 03/31/20 15:29 97.1 F 71 20 114/59 L 98 03/31/20 15:26 97.1 F 79 20 114/59 L 98 03/31/20 14:40 97.0 F 80 18 91/49 L 94 03/31/20 14:15 98.7 F 77 18 113/52 L 98 03/31/20 14:06 80 18 114/60 100 03/31/20 13:52 82 18 105/50 L 100 03/31/20 13:35 79 16 105/40 L 96 03/31/20 13:30 75 14 107/33 L 99 03/31/20 13:27 76 14 107/29 L 100 Body Mass Index 23.6 oral moist mucosa lungs clear s1s2 abd soft +BSs ext no edema RUE AVF OK during HD Assessment & Plan Assessment and plan (1) Renal failure: Problem details: PT ON DIALYSIS. Last dialysed 03/30/2020 Status: Acute (2) Acute upper gastrointestinal bleeding: Problem details: no new episode . Status: Acute Assessment and Plan: BP is soft, agree lets hold off all BP meds, I can restart them as outpt if needed HD as ordered minimal fluid removal GI as per Medicine and GI on PPI for erosive esophagitis Time Spent With Patient Time: Total time spent is greater than 50% in coordination of care (as documented) at patient's floor/unit and/or counseling patient:
[2020-04-01] MEDS: ondansetron HCL 4 MG/2 ML VIAL IVPUSH (15:21)
[2020-04-01] MEDS: LORazepam 0.5 MG TABLET PO (15:21)
--- NOTE | 2020-04-01 16:22 | HO.POSTANES ---
Post Anesthesia Evaluation Post Anesthesia Evaluation Vital Signs: Vital Signs Temp Pulse Resp BP Pulse Ox 04/01/20 15:30 96.7 F L 74 18 113/53 L 96 04/01/20 14:39 98.6 F 72 20 111/56 L 96 04/01/20 12:56 93 04/01/20 09:13 75 93/54 L 04/01/20 07:56 75 93/54 L 04/01/20 04:45 70 99/45 L Anesthesia: Monitored Mental Status: Awake Pain Control: Satisfactory Nausea/Vomiting: None Hydration: Adequate Anesthesia-Related Issues: No Anes. Related Issues
[2020-04-01] MEDS: carvediloL 25 MG TABLET PO (21:13)
[2020-04-02 03:41] VITALS: BP 94/51; PULSE 68; RESP 18; TEMP 37; O2SAT 98
[2020-04-02 07:31] VITALS: BP 108/56; PULSE 74; RESP 18; TEMP 36.9; O2SAT 99
[2020-04-02] MEDS: Omeprazole 40 MG CAPSULE.DR PO ×2 (08:30→15:32)
[2020-04-02] MEDS: 0.9 % Sodium Chloride Flush 3 ML SYRINGE IVFLUSH ×2 (08:34→15:37)
[2020-04-02] MEDS: Atorvastatin Calcium 20 MG TABLET PO (08:34)
[2020-04-02 12:00] VITALS: BP 107/57; PULSE 73; RESP 18; TEMP 36.7; O2SAT 97
--- NOTE | 2020-04-02 14:01 | P.F2F_ITS ---
Service Date Service Date: 04/02/20 Encounter Date of encounter: 04/02/20 Encounter: esrd, Borderline blood pressure, GI bleed. Reasons for Services MD overseeing care: Janice Hollingsworth Homebound: Leaving the home is medically contraindicated at this time without the asist of a device and/or another person due th the listed conditions above and below. Homebound supporting statement: Patient is generalized weak and needed help with going to appointments. Certification: Based on the above findings, I certify that this patient is confined to the home and needs intermittent residential care, physical therapy and/or speech therapy, or continues to need occupational therapy. The patient is under my care, and I have initiated the establishment of the plan of care. The patient will be followed by a physician who will periodically review the plan of care.
--- NOTE | 2020-04-02 14:58 | MHC.CM.PN ---
T/C to pts son, Savage ([phone]) to discuss DC. Pt will dc home with resumption of [facility] and [facility] services. Pt being discharged on SKINNY Briceño explained using 30 ay coupon at pharmacy and placed coupon in pts DC envelop. CM updated pts [facility], [facility], on DC and will arrange BLS transport for 1700 hours
--- NOTE | 2020-04-02 15:40 | MHC.CM.PN ---
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 Pt will need transportation at DC. Pt aware he will likely DC this evening
[2020-04-02 16:00] VITALS: BP 128/80; PULSE 70; RESP 18; TEMP 36.7; O2SAT 97
--- NOTE | 2020-04-02 16:03 | PM.DS ---
DS: Providers Provider Date of admission: 03/31/20 00:20 Primary care physician: Unknown Physician Consults: 03/31/20 01:43 Consult to Gastroenterology Routine Consulting Provider: [facility] Reason for consultation: GI bleed Has provider been notified: No Consult to Physician Routine Consulting Provider: [facility] Reason for consultation: HD TTS Has provider been notified: No DS: Diagnosis Discharge Diagnosis (1) Renal failure: Status: Acute Problem details: PT ON DIALYSIS. Last dialysed 03/30/2020 (2) Acute upper gastrointestinal bleeding: Status: Acute Problem details: no new episode . DS: Summary Hospital Course Hospital Course: 69 y/o male who presented from home due to several episodes of vomiting blood Per history provided by the patient, has a hx of upper GI bleed which was 2 years ago. Now presents with 2 days of multiple episodes of vomiting blood which started suddently of unknown etiology. Patient reports that has been unable to eat or drink anything since as cannot tolerate. Reported that last EGD was done 3 years ago but cannot recall if had a colonoscopy done. Patient was recently admitted to our hospital in october of present year due to incarcerated umbilical hernia. On presentation to the ED patient BP was noted to be stable, mild tachycardia of 95 bpm which improved after fluid administration per the ED. NGT was inserted and was noted black gastric secretions coming out, STAT labs showed stable hgb, WBC of 13, elevated AG of 24 with BUN of 33 and elevated troponin level of 90 but patient denying any chest pain or SOB. Patient started on IV PPI per ED attending, placed NPO and Decision for admission given. Patient evaluated at the bedside, laying down in bed in no acute distres. NGT in place not draining anything at present. IV PPI running. Comfortable. ROS as above otherwise negative. Physical exam as above otherwise unremarkable. PMhx: End-stage renal failure on hemodialysis TTS Essential hypertension GERD Diabetes mellitus Congestive heart failure. Hospital course Problem huber section: 1. Initially was thought to have upper GI bleed: Patient was admitted to the hospital started on PPI, and H&H monitored subsequently GI was consulted and EGD was done: Gib - Probable upper GI bleed: patient was seen by GI and EGD was done: Found to have erosive esophagitis: H&H was stable, patient seems feeling better, discussed with GI doctor Munir: started on PPIs and GI recommended to hold aspirin for 2 weeks and further use as per PCP, please repeat hemoglobin and hematocrit with PCP in 1-2 weeks and follow-up with GI out patiently- Patient is to follow-up with Dr. Beck outpatient.. 2.patient had borderline blood pressure: Discussed with Dr. Barrera from Nephrology: Recommended to hold off on blood pressure medication including nifedipine, minoxidil, Coreg, lisinopril- as per nephrology: hold this medication for now and they will start out patiently if needed. Further management outpatient as per Nephro and PCP. As per Dr. Barrera nephrology: they will check patient's hemoglobin and hematocrit as well as renal function and electrolytes out patiently during next dialysis session Outpatient. Time Spent with Patient Time attestation: Total time spent providing and/or coordinating discharge services: Physical Exam Vital Signs: Vital Signs: Vital Signs Temp Pulse Resp BP Pulse Ox 04/02/20 12:00 98.1 F 73 18 107/57 L 97 04/02/20 07:31 98.4 F 74 18 108/56 L 99 04/02/20 03:41 98.6 F 68 18 94/51 L 98 04/01/20 23:40 98.4 F 69 18 112/52 L 98 04/01/20 21:13 74 97/53 L 04/01/20 19:46 98.7 F 74 18 97/53 L 100 Body Mass Index 23.6 physical exam: cvs: rrr, [id number] , no murmur res: grossly fair air entry, no rhonchi or rales. abd: no rebound or guarding ,nt, bs present. ext pulses present , no cyanosis neuro: aox3, nonfocal. Discharge Plan Discharge Patient Disposition: Home Health Service Referrals: [facility] [Outside] Janice Hollingsworth MD [Physician] - Physician,Unknown [Primary Care Provider] - Discharge Medications: New omeprazole 40 mg Capsule,Delayed Release(Dr/Ec) 40 mg PO BID@0630,1630 Qty: 60 RF: 0 Continued polyethylene glycol 3350 [Miralax] 17 gram Powder In Packet 17 g PO DAILY RF: 0 ondansetron 8 mg Tablet,Disintegrating 8 mg PO RF: 0 rosuvastatin [Crestor] 5 mg Tablet 5 mg PO DAILY RF: 0 sevelamer carbonate [Renvela] 800 mg Tablet 800 mg PO TID RF: 0 Held megestrol 400 mg/10 mL (40 mg/mL) Suspension 400 mg PO DAILY RF: 0 Hold Instructions: Resume on 04/17/20. start as per pcp. carvedilol 25 mg Tablet 25 mg PO BID RF: 0 Hold Instructions: Resume on 04/05/20. Borderline blood pressure, start as per Nephrology out patiently Dr. Barrera. minoxidil 2.5 mg Tablet 5 mg PO BID RF: 0 Hold Instructions: Resume on 04/05/20. Hold for now due to borderline blood pressure start as per Dr. Barrera Nephrology out patiently. aspirin 81 mg Tablet,Delayed Release (Dr/Ec) 81 mg RF: 0 Hold Instructions: Resume on 04/17/20. monitor H&H outpatient with PCP and Nephrology- is going to repeat the labs hematocrit and renal function electrolytes outpatient. nifedipine 90 mg Tablet Extended Release 24hr 90 PO RF: 0 Hold Instructions: Resume on 04/05/20. Hold for now as per blood borderline blood pressure, further use as per Nephrology out patiently. fosinopril 40 mg Tablet 40 mg PO DAILY RF: 0 Hold Instructions: Resume on 04/05/20. Hold for now due to borderline blood pressure, start out patiently as per Dr. Barrera nephrology. Discontinued omeprazole [Prilosec] 20 mg Capsule,Delayed Release(Dr/Ec) 20 mg PO DAILY RF: 0 Discharge Orders: Discharge Order (Routine); Ordered 04/02/20 Ordered By: Larry Felipe Diet: advance to your usual diet Activity on Discharge: As tolerated Discharge Date/Time: 04/02/20 18:00 Visit Report Forms: Patient Portal Discharge page Care Plan Goals: Gib - Probable upper GI bleed: patient was seen by GI and EGD was done: Found to have erosive esophagitis: started on PPIs and GI recommended to hold aspirin for 2 weeks and further use as per PCP, please repeat hemoglobin and hematocrit with PCP in 1-2 weeks and follow-up with GI out patiently. patient had borderline blood pressure: Discussed with Dr. Barrera from Nephrology: Recommended to hold off on blood pressure medication including nifedipine, minoxidil, Coreg, lisinopril- as per nephrology: hold this medication for now and they will start out patiently if needed. Further management outpatient as per Nephro and PCP. Health Concerns: As above. Plan of Treatment: As above.
--- NOTE | 2020-04-02 16:09 | MHC.CM.PN ---
CM met with pt to confirm DC plans. Pt will DC at 1730 hours with resumption of his [facility] from [facility] and a new referral to [facility]. [facility] liaison has indicated she will see the pt tomorrow. Pts number on file is incorrect, his correct telephone number is [phone], this was sent to the [facility]. Pt will also resume his HD T-TH-SAT. Pt will be transported home via [facility] covering for chair van
--- NOTE | 2020-04-04 09:23 | CONS_ITS ---
DATE OF SERVICE: 04/01/2020 REASON FOR CONSULTATION: Evaluation of end-stage kidney disease, admitted for evaluation of question GI bleed. HISTORY OF PRESENT ILLNESS: Tab is a very pleasant 69-year-old gentleman with known medical history of end-stage kidney disease secondary to hypertensive nephrosclerosis who I follow at the [facility] on Friday, , Friday. He is a gentleman who is very compliant with his medications and dialysis treatments, he has a longstanding history of gastroesophageal reflux disease as well as hypertension, type 2 diabetes mellitus, and 1 episode of congestive heart failure in the past, he has been doing remarkably well over the course of the years. He reports that in the last couple of days that increasing upper abdominal discomfort, which was a concern and checked himself into the emergency room. When he came to the hospital, he was having significant upper abdominal discomfort. The patient reported 1 episode of vomiting, red liquid material, he was not sure if it was cranberry juice that he drank earlier in the day versus blood, when he came to the ER, he was found to have a stable blood pressure with tachycardia. He had an NG tube inserted, which revealed black gastric secretions, labs interestingly demonstrated a hemoglobin of 16.6, he was in no acute distress, however, due to concern for GI bleed and a history of previous GI bleed, he was admitted for further observation and evaluation. PAST MEDICAL HISTORY: End-stage kidney disease on hemodialysis Friday, , Friday, hypertension, gastroesophageal reflux disease, prior history of GI bleed 2 years ago, prior history of incarcerated hernia couple of months ago requiring reduction, type 2 diabetes mellitus, and history of congestive heart failure. PAST SURGICAL HISTORY: Left shoulder surgery, left hip arthroplasty, left great toe amputation, repair of incarcerated umbilical hernia in October 2019, and right upper extremity AV fistula creation. SOCIAL HISTORY: Lives at home by himself. Denies history of smoking or drinking alcohol. Denies illicit drugs. FAMILY HISTORY: Noncontributory. REVIEW OF SYSTEMS: He presently denies any nausea, vomiting, or diarrhea. He still has some hiccups. He did have endoscopy yesterday. He denies any headache, visual changes, further hematemesis, bright red blood per rectum, or black stools. Denies any symptoms in a 10-point review of systems. PHYSICAL EXAMINATION: GENERAL: He is alert and oriented. VITAL SIGNS: Blood pressure is 98/63 during dialysis, heart rate of 68 per minute. HEENT: Oral, moist mucosa. NECK: Reveals no jugular venous distention. LUNGS: Clear bilaterally. HEART: S1 and S2. No S3. No S4. No murmurs. ABDOMEN: Soft, nontender, and nondistended. No masses or megalies. EXTREMITIES: Showed no ankle edema. Right upper extremity AV fistula, very good flows during dialysis. LABORATORY DATA: Laboratory data available, his latest hemoglobin April 01, hemoglobin 13.7, white count 11,900. BUN 56, creatinine 9.6, and potassium 4.8. Upper endoscopy showed erosive esophagitis. IMPRESSIONS: Mr. Purcell is a pleasant 69-year-old gentleman who I have known for years for end-stage kidney disease who is admitted for evaluation of upper gastroesophageal bleed. Presently, he is not actively bleeding and his endoscopy revealed erosive esophagitis. He is now recommended to continue with proton pump inhibitor twice a day. His hemoglobin has remained stable. Regarding dialysis, he has undergone 4-hour treatment today as per his usual regimen. His blood pressures have been on the lower side. All antihypertensives have been on hold. RECOMMENDATIONS: Continue to hold off antihypertensives. If discharge, we can restart him as an outpatient as we will follow in the outpatient dialysis center. Regarding GI findings, I agree with proton pump inhibitors as recommended by GI. He would likely require some form of followup, fortunately his hemoglobin has not dropped and he remains hemodynamically stable. Although his volume status appears slightly depleted, which reflects his lower blood pressure readings, presently he is in reasonable hemodynamic stability. Avoid any anticoagulants. We will continue to follow during the hospital stay and will take him [facility] [place]. Thank you for allowing me to participate in his care. Best regards, MD RAPLH Ron/[facility] / [id number]
== END 2020-04-02 18:00 | disposition home health service (06) | DRG 368 ==
LOC: HO.ED 03-31 00:15 → HO.IMC 03-31 00:23
PROVIDERS: Internal Medicine Gastroenterology; Admitting Provider Internal Medicine; Emergency Provider Emergency Medicine; Visit Provider Internal Medicine
PROC: 0DJ08ZZ Inspection of Upper Intestinal Tract, Via Natural or Artificial Opening Endoscopic (ICD-10-PCS; CPT 43235; principal; 2020-03-31 13:00)
DX: K21.01 Gastro-esophageal reflux disease with esophagitis, with bleeding (principal); I13.2 Hypertensive heart and chronic kidney disease with heart failure and with stage 5 chronic kidney disease, or end stage renal disease; N18.6 End stage renal disease; E11.22 Type 2 diabetes mellitus with diabetic chronic kidney disease; Z99.2 Dependence on renal dialysis; Z79.82 Long term (current) use of aspirin; Z79.899 Other long term (current) drug therapy; I50.9 Heart failure, unspecified
CPT/HCPCS: 36415; 71045; 80048; 80076; 82947; 83690; 84484; 85014; 85018; 85025; 85027; 85610; 85730; 86850; 86901; 90999; 93005; 99284; J2060; J2270; J2405

== ENCOUNTER 2020-12-01 13:23 | Outpatient (RCR) | payer MEDICARE, MEDICAID, SELFPAY | END 2021-01-05 14:00 | disposition home or self-care (01) | LOC: HO.WCC 13:23 | PROVIDERS: Visit Provider Physician Assistant | DX: E11.621 Type 2 diabetes mellitus with foot ulcer (principal); E11.51 Type 2 diabetes mellitus with diabetic peripheral angiopathy without gangrene; I70.235 Atherosclerosis of native arteries of right leg with ulceration of other part of foot; L97.512 Non-pressure chronic ulcer of other part of right foot with fat layer exposed; E11.22 Type 2 diabetes mellitus with diabetic chronic kidney disease; E11.40 Type 2 diabetes mellitus with diabetic neuropathy, unspecified; L60.0 Ingrowing nail; I12.0 Hypertensive chronic kidney disease with stage 5 chronic kidney disease or end stage renal disease; N18.6 End stage renal disease; Z99.2 Dependence on renal dialysis | CPT/HCPCS: 11042; 97602; 99212 ==

== ENCOUNTER 2021-01-27 00:38 | Inpatient (IN) | payer MEDICARE, MEDICAID, SELFPAY ==
[2021-01-27] VITALS (16 sets, daily range): BP systolic 131–199; BP diastolic 61–86; PULSE 67–91; RESP 12–22; TEMP 36.2–36.9; O2SAT 88–100; BMI 23.6
--- NOTE | 2021-01-27 | ECG_ITS ---
Test Reason : ABD PAIN Blood Pressure : / mmHG Vent. Rate : 088 BPM Atrial Rate : 088 BPM P-R Int : 216 ms QRS Dur : 142 ms QT Int : 392 ms P-R-T Axes : 065 -66 080 degrees QTc Int : 474 ms Sinus rhythm with 1st degree A-V block with occasional Premature ventricular complexes Right bundle branch block Left anterior fascicular block Bifascicular block Abnormal ECG When compared with ECG of 30-MAR-2020 20:37, Premature ventricular complexes are now Present Referred By: Generic ED Physician Electronically Signed By:Christopher Andrade
--- NOTE | ~2021-01-27 | CT_ITS ---
EXAMINATION: CT HEAD WITHOUT CONTRAST CLINICAL INFORMATION: Altered mental status COMPARISON: Head CT October 11, 2014 TECHNIQUE: Contiguous axial imaging was performed from the skull base to vertex without intravenous administration of contrast. This CT examination was performed using dose optimization techniques as appropriate, variously including the following: *Automated exposure control *Adjustment of mA and/or kV according to patient size (this includes techniques or standardized protocols for targeted exams where dose is matched to indication/reason for exam; i.e. extremities or head) *Use of iterative reconstruction technique DLP: 775 mGy-cm FINDINGS: There is no evidence of acute intracranial hemorrhage or territorial infarction. No abnormal mass effect or midline shift is appreciated. Herrera-white differentiation is well preserved. No extra-axial fluid collections. The ventricular system and cortical sulci are prominent, consistent with volume loss. There are areas of low density in the periventricular and subcortical white matter, most consistent with sequelae of microvascular ischemic change. The osseous structures and soft tissues are normal. There are calcifications of the cavernous internal carotid arteries. The visualized paranasal sinuses and mastoid air cells are well aerated. CT/CT head/brain wo con IMPRESSION: Chronic microvascular ischemic changes with no CT evidence of acute intracranial abnormality.
--- NOTE | ~2021-01-27 | CT_ITS ---
EXAMINATION CTA CHEST, ABDOMEN AND PELVIS CLINICAL INFORMATION: Severe back pain COMPARISON: 11/08/2019 TECHNIQUE: Multidetector volumetric CT imaging of the chest, abdomen and pelvis was obtained after the administration of 80 mL Omnipaque 350 intravenous contrast without immediate adverse reactions. Coronal and sagittal reformats were reviewed. This CT examination was performed using dose optimization techniques as appropriate, variously including the following: *Automated exposure control *Adjustment of mA and/or kV according to patient size (this includes techniques or standardized protocols for targeted exams where dose is matched to indication/reason for exam; i.e. extremities or head) *Use of iterative reconstruction technique DLP: 623 mGy-cm FINDINGS: VASCULAR: No aortic aneurysm penetrating atherosclerotic ulceration or dissection. While examination is not tailored towards evaluation of the pulmonary vasculature, there are no filling defects within the central or segmental pulmonary arterial branches to suggest pulmonary embolism. No bilateral renal arteries show extensive vascular calcifications but remain patent. Patent splanchnic arteries. Normal caliber common iliac arteries and branches. NONVASCULAR: CHEST: Lungs are clear. No consolidation, pneumonitis or pneumothorax. No pleural effusion. Cardiomegaly. No pericardial effusion. Triple vessel coronary calcifications. No mediastinal or hilar adenopathy. Chest wall and axilla are unremarkable apart from bilateral gynecomastia. No axillary adenopathy. ABDOMEN/PELVIS: Liver, biliary tree, gallbladder and pancreas unremarkable. Previously seen hypodensity within the uncinate represents focal fatty infiltration, less conspicuous on this exam. Spleen and adrenal glands are normal. Multiple bilateral simple renal cysts redemonstrated. Bilateral renal atrophy. No hydronephrosis or perinephric abnormality. Bladder unremarkable. Small sliding-type hiatal hernia. Stomach and small bowel unremarkable. Sigmoid colonic diverticular disease without evidence of diverticulitis. Mild prostatomegaly. No lymphadenopathy. No ascites. MUSCULOSKELETAL: No acute or suspicious osseous abnormalities. Degenerative changes present throughout the thoracic and lumbar spine. Prominent disc bulges present throughout the, lumbar spine with accompanying loss of disc space height, endplate sclerosis and endplate degenerative cysts. There is vacuum predominant from T12 to L5. At L5-S1, there was previously vacuum phenomena which is no longer present, except for a single punctate focus of gas within the anterior interspace at L5-S1. There is also anterior paraspinal fat stranding along L5-S1. Compared to the prior examination, the endplate cystic changes and erosive changes as progressed slightly. CT/CT angio abdomen pelvis IMPRESSION: * No evidence of aortic aneurysm or dissection. * No acute visceral abnormality within the chest, abdomen or pelvis * Sigmoid colonic diverticular disease without compelling evidence of active diverticulitis. * Chronic bilateral renal cortical atrophy. * Worsening degenerative and erosive changes at L5-S1 with loss of the previously seen vacuum disc. Findings are concerning for discitis/osteomyelitis at L5-S1
--- NOTE | ~2021-01-27 | MR_ITS ---
EXAMINATION: MR LUMBAR SPINE WITHOUT CONTRAST CLINICAL INFORMATION: Discitis on CT scan. COMPARISON: CT angiogram of the abdomen and pelvis 01/27/2021. TECHNIQUE: MRI of the lumbar spine was obtained using routine sequences without contrast. FINDINGS: There are type I degenerative bone marrow signal changes at L5-S1 with increased low signal within the intervertebral disc space and questionable erosive changes of the adjoining endplates. There is associated paraspinal and presacral edema. No discrete drainable fluid collection. There are mixed degenerative endplate changes at multiple additional levels. Alignment is normal. Vertebral heights are preserved. There is loss of intervertebral disc height and T2 signal intensity at multiple levels related to disc degeneration. The tip of the conus medullaris is located at L1-L2. No mass effect on the conus. Although only partially included within the [id number]-sybk of this examination there is mild to moderate canal stenosis at levels of T10-T11 and T11-T12. No overt distal cord compression and no abnormal intramedullary signal changes within the visualized spinal cord. At L1-L2 there is a diffusely bulging disc. Bilateral facet degenerative change. Severe canal stenosis. No foraminal nerve root compression. At L2-L3 there is a diffusely bulging disc. Bilateral facet degenerative change. Severe canal stenosis. No foraminal nerve root compression. At L3-L4 there is a central annular fissure associated with a bulging disc. Bilateral facet degenerative change. Moderate canal stenosis. Mild to moderate compression of the right L3 foraminal nerve root. At L4-L5 there is a diffusely bulging disc. Bilateral facet degenerative change. There is severe compression of the left L4 foraminal nerve root and moderate compression of the right L4 foraminal nerve. At L5-S1 there is a diffusely bulging disc. Bilateral facet degenerative change. This finding in conjunction with prominence of the epidural fat causing near complete effacement of the subarachnoid space. Moderate compression of both L5 foraminal nerve roots. Limited visualization the retroperitoneal anatomy reveals multiple well marginated benign-appearing cystic lesions, at least one of which demonstrate layering blood. Psoas and paraspinal muscle groups are symmetric. MR/MR lumbar spine wo con IMPRESSION: There is edema involving the L5 and S1 vertebral bodies with apparent erosion of the adjoining endplates. There is also paraspinal and presacral edema. These findings provide a strong likelihood for the presence of discitis osteomyelitis. In addition there is multilevel degenerative spondylosis of the lumbar spine with severe canal stenosis at L2-L3, moderate to severe canal stenosis at L1-L2, and moderate canal stenosis at L3-L4 and L4-L5. There are varying degrees of mass effect on the foraminal segments of the nerve roots as described above.
[2021-01-27 01:05] LABS: Glucose, Whole Blood 175 mg/dL (60-115)
--- NOTE | 2021-01-27 01:32 | ED_ITS ---
HPI - Back Pain/Injury General Chief Complaint: Back Pain/Injury Stated Complaint: lower back pain Time Seen by Provider: 01/27/21 00:58 Source: patient and EMS Mode of arrival: EMS Limitations: no limitations History of Present Illness HPI Narrative: Patient comes emergency room complaining of severe back pain. Carlton elsa states he has chronic back pain but it never hurt this bad before. Patient complaining of nausea vomiting, no abdominal pain. Patient states that he is due for dialysis tomorrow. Patient denies chest pain or shortness of breath. MD elicited complaint: back pain Related Data Home Medications Medication Instructions Recorded Confirmed aspirin 81 mg tablet,delayed 81 mg PO DAILY 03/30/20 01/27/21 release carvedilol 25 mg tablet 25 mg PO BID 03/30/20 01/27/21 fosinopril 40 mg tablet 40 mg PO DAILY 03/30/20 01/27/21 megestrol 400 mg/10 mL (40 mg/mL) 400 mg PO DAILY 03/30/20 01/27/21 oral suspension minoxidil 2.5 mg tablet 5 mg PO BID 03/30/20 01/27/21 nifedipine 90 mg tablet,extended 90 mg PO DAILY 03/30/20 01/27/21 release 24 hr ondansetron 8 mg disintegrating 8 mg PO DAILY 03/30/20 01/27/21 tablet polyethylene glycol 3350 17 gram 17 g PO DAILY 03/30/20 01/27/21 oral powder packet (Miralax) rosuvastatin 5 mg tablet (Crestor) 5 mg PO DAILY 03/30/20 01/27/21 sevelamer carbonate 800 mg tablet 800 mg PO TID 03/30/20 01/27/21 (Renvela) Previous Rx's Medication Instructions Recorded omeprazole 40 mg capsule,delayed 40 mg PO BID@0630,3010 #60 cap 04/02/20 release Allergies Allergy/AdvReac Type Severity Reaction Status Date / Time metformin [METFORMIN] Allergy Intermediate IT MESSES Verified 03/30/20 20:02 ME UP Hvvxswn-Pwa-Ilc Reductase Allergy Intermediate NAUSEA Verified 03/30/20 20:02 Inhibitor [[id number]-RSD-BKI REDUCTASE INHIBITOR] cephalexin [From KEFLEX] Allergy Unknown UNSPECIFIED Verified 03/30/20 20:02 IT MESSES ME UP any form of statin Allergy Unknown Unknown Uncoded 03/30/20 20:02 glucophage Allergy Unknown Diarrhea Uncoded 03/30/20 20:02 Review of Systems Review of Systems: Constitutional : No Weight loss, No Fever, No Chills, No Night Sweats, No Fatigue, No Malaise ENT/Mouth : No Hearing loss, No Ear Pain, No Nasal Congestion, No Sinus Pain, No Hoarseness, No sore throat, No Rhinorrhea, No Swallowing Difficulty Eyes: No Eye Pain, No Swelling, No Redness, No Foreign Body, No Discharge, No Vision Changes Cardiovascular : No Chest Pain, No SOB, No Dyspnea on Exertion, No Orthopnea, No Edema, No Palpitations Respiratory : No Cough, No Sputum, No Wheezing, No Smoke Exposure, No Dyspnea Gastrointestinal : Complaining of nausea and vomiting, No Diarrhea, No Constipation, No abdominal Pain, No Hematochezia, No Melena Genitourinary : Patient does not produce urine. Musculoskeletal : Complaining of severe back pain, acute on chronic. No joint pain, No Myalgias, No Joint Swelling Skin : No Skin Lesions, No rash Neuro : No Weakness, No Numbness, No Paresthesias, No Loss of Consciousness, No Dizziness, No Headache Psych : No Anxiety/Panic, No Depression, No SI/HI/AH/VH, No Social Issues, Heme/Lymph: No Bruising, No Bleeding,No Lymphadenopathy Endocrine : No Polyuria, No Polydipsia, No Temperature Intolerance PMFSH Past Medical History Medical History CHF (congestive heart failure) Diabetes mellitus GERD (gastroesophageal reflux disease) HTN (hypertension) Hyperlipidemia Presence of arteriovenous dialysis shunt Renal failure Social History Social History Household Members: None Housing: Apartment Do you presently have visiting nurse or other home services: Yes ([employer]) Alcohol intake: current Alcohol intake frequency: 0-2 drinks per day Patient Tobacco Use Status: Former Tobacco user Smoked in Last 30 Days: No Use of substances other than those prescribed or required for medical reasons: No Advance Directives: No service: No Current occupational status: retired Physical Exam Vital Signs: Vital Signs: Last Vital Signs Temp 98.4 F 01/27/21 00:45 Pulse 79 01/27/21 04:35 Resp 18 01/27/21 04:35 BP 172/70 H 01/27/21 04:35 Pulse Ox 100 01/27/21 04:35 Body Mass Index 23.6 Const: Other: Appearance: Alert. Oriented X3. Seems very uncomfortable, diaphoretic Eyes: Pupils equal, round and reactive to light. Cataracts in both eyes ENT: Pharynx normal. Neck: Normal inspection. Neck supple. No lymph nodes noted. No crepitus CVS: Normal heart rate and rhythm. Pulses normal. Normal S1 and S2 Respiratory: No respiratory distress. Breath sounds normal. No Wheezing. No rales Abdomen: Soft and nontender. No rigidity. No distention. Back: Pain over the thoracic and lumbar area, no spine tenderness Skin: Skin warm , diaphoretic Extremities: No lower extremity edema. Neuro: Oriented X 3. No motor deficit. No sensory deficit. Moving all extermities. No slurred speech. Course Course Course Narrative: Patient's blood pressure improved with 20 mg of hydralazine and 10 of labetalol IV. I discussed the CT scans of the abdomen/pelvis with Radiology, patient's source of pain is likely diskitis versus osteomyelitis, no dissection Patient was started on Zosyn and vancomycin. Fluids being given cautiously, patient was significantly elevated blood pressure. I discussed the above-mentioned with our hospitalist. Patient started to get more confused after he was given morphine. Given his high blood pressure will go ahead and scan his head, head CT pending. Patient will be admitted. Patient will need GI consult and dialysis in the morning Per Radiology recommendations, CT scan can be done at 08:00, since patient recently was scan with IV contrast. I discussed the above-mentioned with our hospitalist, it is possible that the morphine may have caused the patient to become confused MDM - Back Pain/Injury Lab Data Result diagrams: 01/27/21 01:39 01/27/21 01:40 Labs: Lab Results 01/27/21 01/27/21 01/27/21 Range/Units 01:02 01:39 01:39 WBC 14.0 H (4.8-10.8) X10*3/uL RBC 4.14 L (4.60-5.80) X10*6/uL Hgb 11.9 L (14.0-18.0) g/dl Hct 36.7 L (42-52) % MCV 88.6 (80-98) fL MCH 28.7 (27.0-33.0) pg MCHC 32.4 (31.0-36.0) g/dl RDW 16.8 H (11.0-16.0) % Plt Count 374 (160-400) X10*3/uL MPV 9.2 L (9.4-12.4) fL Immature Gran % (Auto) 0.4 (0.0-0.4) % Neut % (Auto) 87.6 H (45-73) % Lymph % (Auto) 4.9 L (20-40) % [place] % (Auto) 7.0 (2-11) % Eos % (Auto) 0.0 (0-4) % Baso % (Auto) 0.1 (0-2) % Lymph # (Auto) 0.7 L (1.2-4.9) X10*3/uL [place] # (Auto) 1.0 (0.1-1.2) X10*3/uL Eos # (Auto) 0.0 (0.0-0.4) X10*3/uL Baso # (Auto) 0.0 (0.0-0.2) X10*3/uL Abs Immat Gran (auto) 0.05 H (0.00-0.03) X10*3/uL Absolute Neuts (auto) 12.3 H (2.0-8.3) X10*3/uL Absolute Nucleated RBC 0.000 (0.0-0.012) X10*3/uL Nucleated RBC % (auto) 0.0 (0.0-0.2) /100WBC Sodium (135-145) mmol/L Potassium (3.3-5.1) mmol/L Chloride (96-108) mmol/L Carbon Dioxide (22-29) mmol/L Anion Gap (12-20) BUN (9-16) mg/dL Creatinine (0.5-1.4) mg/dL Estim Creat Clear Calc Estimated GFR POC Glucose 175 H (60-115) mg/dL Random Glucose (60-115) mg/dL Lactic Acid (0.5-2.0) mmol/L Calcium (8.4-10.2) mg/dL Magnesium (1.6-2.6) mg/dL Total Bilirubin (0.0-1.0) mg/dL AST (5-37) U/L ALT (0-40) U/L Alkaline Phosphatase (39-117) U/L Troponin I High Sens 30.7 (<3.5-35.0) ng/L Total Protein (6.5-8.0) g/dL Albumin (3.5-5.0) g/dL Lipase (8-78) U/L Gastric Occult Blood (NEG) Coronavirus (PCR) (Negative) Influenza Type A (PCR) (Negative) Influenza Type B (PCR) (Negative) RSV RNA Qual (PCR) (Negative) 01/27/21 01/27/21 01/27/21 Range/Units 01:39 01:40 01:40 WBC (4.8-10.8) X10*3/uL RBC (4.60-5.80) X10*6/uL Hgb (14.0-18.0) g/dl Hct (42-52) % MCV (80-98) fL MCH (27.0-33.0) pg MCHC (31.0-36.0) g/dl RDW (11.0-16.0) % Plt Count (160-400) X10*3/uL MPV (9.4-12.4) fL Immature Gran % (Auto) (0.0-0.4) % Neut % (Auto) (45-73) % Lymph % (Auto) (20-40) % [place] % (Auto) (2-11) % Eos % (Auto) (0-4) % Baso % (Auto) (0-2) % Lymph # (Auto) (1.2-4.9) X10*3/uL [place] # (Auto) (0.1-1.2) X10*3/uL Eos # (Auto) (0.0-0.4) X10*3/uL Baso # (Auto) (0.0-0.2) X10*3/uL Abs Immat Gran (auto) (0.00-0.03) X10*3/uL Absolute Neuts (auto) (2.0-8.3) X10*3/uL Absolute Nucleated RBC (0.0-0.012) X10*3/uL Nucleated RBC % (auto) (0.0-0.2) /100WBC Sodium 138 (135-145) mmol/L Potassium 4.3 (3.3-5.1) mmol/L Chloride 95 L (96-108) mmol/L Carbon Dioxide 17 L (22-29) mmol/L Anion Gap 30 H (12-20) BUN 45 H (9-16) mg/dL Creatinine 8.00 H* (0.5-1.4) mg/dL Estim Creat Clear Calc 8.7 Estimated GFR 7 POC Glucose (60-115) mg/dL Random Glucose 200 H D (60-115) mg/dL Lactic Acid (0.5-2.0) mmol/L Calcium 9.8 D (8.4-10.2) mg/dL Magnesium 2.1 (1.6-2.6) mg/dL Total Bilirubin 1.1 H (0.0-1.0) mg/dL AST 25 (5-37) U/L ALT 15 (0-40) U/L Alkaline Phosphatase 218 H D (39-117) U/L Troponin I High Sens (<3.5-35.0) ng/L Total Protein 8.3 H (6.5-8.0) g/dL Albumin 4.4 (3.5-5.0) g/dL Lipase 45 (8-78) U/L Gastric Occult Blood (NEG) Coronavirus (PCR) NEGATIVE (Negative) Influenza Type A (PCR) NEGATIVE (Negative) Influenza Type B (PCR) NEGATIVE (Negative) RSV RNA Qual (PCR) NEGATIVE (Negative) 01/27/21 01/27/21 Range/Units 01:40 01:47 WBC (4.8-10.8) X10*3/uL RBC (4.60-5.80) X10*6/uL Hgb (14.0-18.0) g/dl Hct (42-52) % MCV (80-98) fL MCH (27.0-33.0) pg MCHC (31.0-36.0) g/dl RDW (11.0-16.0) % Plt Count (160-400) X10*3/uL MPV (9.4-12.4) fL Immature Gran % (Auto) (0.0-0.4) % Neut % (Auto) (45-73) % Lymph % (Auto) (20-40) % [place] % (Auto) (2-11) % Eos % (Auto) (0-4) % Baso % (Auto) (0-2) % Lymph # (Auto) (1.2-4.9) X10*3/uL [place] # (Auto) (0.1-1.2) X10*3/uL Eos # (Auto) (0.0-0.4) X10*3/uL Baso # (Auto) (0.0-0.2) X10*3/uL Abs Immat Gran (auto) (0.00-0.03) X10*3/uL Absolute Neuts (auto) (2.0-8.3) X10*3/uL Absolute Nucleated RBC (0.0-0.012) X10*3/uL Nucleated RBC % (auto) (0.0-0.2) /100WBC Sodium (135-145) mmol/L Potassium (3.3-5.1) mmol/L Chloride (96-108) mmol/L Carbon Dioxide (22-29) mmol/L Anion Gap (12-20) BUN (9-16) mg/dL Creatinine (0.5-1.4) mg/dL Estim Creat Clear Calc Estimated GFR POC Glucose (60-115) mg/dL Random Glucose (60-115) mg/dL Lactic Acid 3.7 H* (0.5-2.0) mmol/L Calcium (8.4-10.2) mg/dL Magnesium (1.6-2.6) mg/dL Total Bilirubin (0.0-1.0) mg/dL AST (5-37) U/L ALT (0-40) U/L Alkaline Phosphatase (39-117) U/L Troponin I High Sens (<3.5-35.0) ng/L Total Protein (6.5-8.0) g/dL Albumin (3.5-5.0) g/dL Lipase (8-78) U/L Gastric Occult Blood POS (NEG) Coronavirus (PCR) (Negative) Influenza Type A (PCR) (Negative) Influenza Type B (PCR) (Negative) RSV RNA Qual (PCR) (Negative) Imaging Data CTA of chest and abdomen: Radiologist's impression: VASCULAR: No aortic aneurysm penetrating atherosclerotic ulceration or dissection. While examination is not tailored towards evaluation of the pulmonary vasculature, there are no filling defects within the central or segmental pulmonary arterial branches to suggest pulmonary embolism. No bilateral renal arteries show extensive vascular calcifications but remain patent. Patent splanchnic arteries. Normal caliber common iliac arteries and branches. NONVASCULAR: CHEST: Lungs are clear. No consolidation, pneumonitis or pneumothorax. No pleural effusion. Cardiomegaly. No pericardial effusion. Triple vessel coronary calcifications. No mediastinal or hilar adenopathy. Chest wall and axilla are unremarkable apart from bilateral gynecomastia. No axillary adenopathy. ABDOMEN/PELVIS: Liver, biliary tree, gallbladder and pancreas unremarkable. Previously seen hypodensity within the uncinate represents focal fatty infiltration, less conspicuous on this exam. Spleen and adrenal glands are normal. Multiple bilateral simple renal cysts redemonstrated. Bilateral renal atrophy. No hydronephrosis or perinephric abnormality. Bladder unremarkable. Small sliding-type hiatal hernia. Stomach and small bowel unremarkable. Sigmoid colonic diverticular disease without evidence of diverticulitis. Mild prostatomegaly. ?No lymphadenopathy. No ascites. MUSCULOSKELETAL: No acute or suspicious osseous abnormalities. Degenerative changes present throughout the thoracic and lumbar spine. Prominent disc bulges present throughout the, lumbar spine with accompanying loss of disc space height, endplate sclerosis and endplate degenerative cysts. There is vacuum predominant from T12 to L5. At L5-S1, there was previously vacuum phenomena which is no longer present, except for a single punctate focus of gas within the anterior interspace at L5-S1. There is also anterior paraspinal fat stranding along L5-S1. Compared to the prior examination, the endplate cystic changes and erosive changes as progressed slightly. CT/CT angio chest IMPRESSION: *? No evidence of aortic aneurysm or dissection. *? No acute visceral abnormality within the chest, abdomen or pelvis *? Sigmoid colonic diverticular disease without compelling evidence of active diverticulitis. *? Chronic bilateral renal cortical atrophy. *? Worsening degenerative and erosive changes at L5-S1 with loss of the previously seen vacuum disc. Findings are concerning for discitis/osteomyelitis at L5-S1 Critical Care Time Critical Care Time Total Critical Care Time: 65 Discharge Plan Discharge Clinical Impression: Discitis, GI bleed, Hypertensive urgency Patient Disposition: Admitted As Inpatient
--- NOTE | 2021-01-27 01:35 | PC.NURSE ---
EJ 18g left, by md matamoros.
[2021-01-27 01:44] LABS: Basophils Percent Auto 0.1 % (0-2); Hematocrit 36.7 % (42-52); Hemoglobin 11.9 g/dl (14.0-18.0); Imm Gran Abs Auto 0.05 X10*3/uL (0.00-0.03); Imm Gran Pct Auto 0.4 % (0.0-0.4); Lymphocytes Absolute Auto 0.7 X10*3/uL (1.2-4.9); Lymphocytes Percent Auto 4.9 % (20-40); MANUAL DIFF FLAG NO; Mean Corpuscular HGB Conc 32.4 g/dl (31.0-36.0); Mean Corpuscular Hemoglobin 28.7 pg (27.0-33.0); Mean Corpuscular Volume 88.6 fL (80-98); Mean Platelet Volume 9.2 fL (9.4-12.4); Neutrophils Absolute Auto 12.3 X10*3/uL (2.0-8.3); Neutrophils Percent Auto 87.6 % (45-73); Platelet Count 374 X10*3/uL (160-400); Red Blood Count 4.14 X10*6/uL (4.60-5.80); Red Cell Distribution Width 16.8 % (11.0-16.0)
[2021-01-27 01:58] LABS: GASOB Int Neg Ctl Valid YES; GASOB Int Pos Ctl Valid YES; Occult Blood Gastric POS (NEG)
[2021-01-27 02:02] LABS: Lactic Acid 3.7 mmol/L (0.5-2.0)
[2021-01-27 02:08] LABS: Troponin-I High Sensitivity 30.7 ng/L (<3.5-35.0)
[2021-01-27 02:18] LABS: Magnesium 2.1 mg/dL (1.6-2.6)
[2021-01-27] MEDS: Morphine Sulfate 4 MG/ML CARTRIDGE IVPUSH (02:20)
[2021-01-27] MEDS: 0.9 % Sodium Chloride 1,000 ML 999 ML IVCONT ×2 (02:22→04:35)
[2021-01-27 02:25] LABS: Alanine Aminotransferase 15 U/L (0-40); Albumin Level 4.4 g/dL (3.5-5.0); Alkaline Phosphatase 218 U/L (39-117); Anion Gap 30 (12-20); Aspartate Amino Transferase 25 U/L (5-37); Bilirubin Total 1.1 mg/dL (0.0-1.0); Blood Urea Nitrogen 45 mg/dL (9-16); Calcium 9.8 mg/dL (8.4-10.2); Carbon Dioxide 17 mmol/L (22-29); Chloride 95 mmol/L (96-108); Creatinine Clr Calc Pharmacy 8.7; Estimated Glomerular Filt Rate 7; Glucose Random 200 mg/dL (60-115); Lipase 45 U/L (8-78); Potassium 4.3 mmol/L (3.3-5.1); Sodium 138 mmol/L (135-145); Total Protein 8.3 g/dL (6.5-8.0)
[2021-01-27] MEDS: Pantoprazole Sodium 40 MG/10 ML VIAL IVPUSH (02:26)
[2021-01-27] MEDS: Nitroglycerin 2 % Oint 1 GM Packet 1 INCH TRANSDERMA (02:42)
[2021-01-27] MEDS: hydrALAZINE HCl 20 MG/ML VIAL 10 MG IVPUSH ×2 (02:42→03:16)
[2021-01-27 02:43] LABS: Influenza A PCR NEGATIVE (Negative); Influenza B PCR NEGATIVE (Negative); Resp Syncy Virus RNA Qual PCR NEGATIVE (Negative); SARS COV2 PCR INHOUSE NEGATIVE (Negative)
[2021-01-27] MEDS: Octreotide Acetate 500 MCG in 0.9 % Sodium Chloride 500 ML 25.05 MCG IVCONT ×2 (02:59→21:50)
[2021-01-27] MEDS: Piperacillin Sodium/Tazobactam 3.375 GM in 0.9 % Sodium Chloride 50 ML IV (03:17)
[2021-01-27] MEDS: Prochlorperazine Edisylate 10 MG/2 ML VIAL IVPUSH (03:38)
[2021-01-27] MEDS: Labetalol HCL 100 MG/20 ML VIAL 10 MG IVPUSH (03:40)
[2021-01-27 03:43] LABS: Reflex Lactate? Lactic Acid Added
[2021-01-27] MEDS: vancomycin HCL 750 MG in 0.9 % Sodium Chloride 250 ML 265 MG IV (04:10)
[2021-01-27] MEDS: HYDROmorphone HCl 1 MG/ML SYRINGE IVPUSH (04:14)
--- NOTE | 2021-01-27 05:46 | PC.NURSE ---
Contact made to Dr. Kinney regarding pending admission status. Per overnight hospitalist, Pt will not be admitted to hospitalist care until after head ct is completed to rule out head bleed due to earlier confusion. Delay in admission due to prior CT with contrast needing to clear pt's system and not have false positive or inacurate read. 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
--- NOTE | 2021-01-27 10:00 | P.HPHOSP_ITS ---
History of Present Illness Date of Service: 01/27/21 Chief Complaint: coffee ground emesis, back pain 70-year-old male with ESRD, HTN, CHF, HLD who presents emergency department for evaluation of back pain and coffee-ground emesis.? He states that he has been having the back for about 3 days, located in the lumbar regieon worse with movment, he reports no weakness in legs, no numbness, no urinary or stool inc ontience, no fever. Unrelated to this he also report coffee-ground emesis at home, there is no history of cirrhosis or know esophageal varices. His CBC is stable, no active bleed. He is getting octreotide, I am not quite sure of the reasoning behind. Work up with CT has revealed L5-S1 diskitis verses osteoarthritis and has been given Zosyn and vancomycin IV and blood cultures sent. Patient also had a CT scan of the chest abdomen pelvis with IV contrast which were unremarkable.? He reported had an episode of confusion after morphine and head CT is also negative. The patient? was also found to have an elevated blood pressure of 199/77 and treated with IV hydralazine and labetalol.? Review of Systems Review of Systems: Gen: no fever Resp: no sob, no cough CV: no chest, no MARTINEZ, no leg edema GI: coffee ground emesis outside of hospital, no stool incontience Neuro: No confusion, stated to be confused earlier, no wealkess in the legs, no saddle anesthesia MSK: Back pain, Yes all other systems are reviewed and are negative [facility] Medical History Amputation of left great toe CHF (congestive heart failure) Diabetes mellitus ESRD (end stage renal disease) GERD (gastroesophageal reflux disease) HTN (hypertension) Hyperlipidemia Presence of arteriovenous dialysis shunt Pertinent family history: Diabetes Surgical History (Updated 01/27/21 @ 10:16 by Elliot Galan MD) H/O hernia repair H/O shoulder surgery Social History Household Members: None Housing: Apartment Do you presently have visiting nurse or other home services: Yes Alcohol intake: current Alcohol intake frequency: 0-2 drinks per day Patient Tobacco Use Status: Former Tobacco user Tobacco use type: Cigarette Smoked in Last 30 Days: No Patient Interested in Nicotine Replacement: No Patient Given Instructions on How to Stop Smoking: No Second Hand Smoke Exposure: No Use of substances other than those prescribed or required for medical reasons: No Currently Displaying Signs/Symptoms of Drug Intoxication Withdrawal: No Have you been hit, kicked, punched, or otherwise hurt by someone within the past year? If so, by whom?: No Do you feel safe in your current relationship?: No Is there a partner from a previous relationship who is making you feel unsafe now?: No Are you made to feel afraid or neglected: No Advance Directives: No Do you have thoughts of harming others: None Do you have a plan to hurt others: No Plan Recently lost weight without trying: Yes How much weight loss: 2-13 pounds Eating poorly because of decreased appetite: Yes Nutrition screen score: 4 Nutrition Risks: Anorexia service: No Current occupational status: retired Meds Allergies Allergy/AdvReac Type Severity Reaction Status Date / Time metformin [METFORMIN] Allergy Intermediate IT MESSES Verified 03/30/20 20:02 ME UP Ddofnzb-Lxl-Ujn Reductase Allergy Intermediate NAUSEA Verified 03/30/20 20:02 Inhibitor [NEGMIVC-FPT-SXO REDUCTASE INHIBITOR] cephalexin [From KEFLEX] Allergy Unknown UNSPECIFIED Verified 03/30/20 20:02 IT MESSES ME UP any form of statin Allergy Unknown Unknown Uncoded 03/30/20 20:02 glucophage Allergy Unknown Diarrhea Uncoded 03/30/20 20:02 Active Medications: Current Medications Generic Name Dose Route Start Last Admin Trade Name Freq PRN Reason Stop Dose Admin Octreotide Acetate 500 mcg/ 501 mls @ 25.05 mls/hr 01/27/21 02:15 01/27/21 02:59 Sodium Chloride IVCONT 25 mcg/hr .Q20H SAMI 25.05 mls/hr Administration 25 MCG/HR Home Medications Medication Instructions Recorded Confirmed Last Taken Type aspirin 81 mg tablet,delayed 81 mg PO DAILY 03/30/20 01/27/21 03/30/20 History release carvedilol 25 mg tablet 25 mg PO BID 03/30/20 01/27/21 03/30/20 History fosinopril 40 mg tablet 40 mg PO DAILY 03/30/20 01/27/21 03/30/20 History megestrol 400 mg/10 mL (40 mg/mL) 400 mg PO DAILY 03/30/20 01/27/21 03/30/20 History oral suspension minoxidil 2.5 mg tablet 5 mg PO BID 03/30/20 01/27/21 03/30/20 History nifedipine 90 mg tablet,extended 90 mg PO DAILY 03/30/20 01/27/21 03/30/20 History release 24 hr ondansetron 8 mg disintegrating 8 mg PO DAILY 03/30/20 01/27/21 03/30/20 History tablet polyethylene glycol 3350 17 gram 17 g PO DAILY 03/30/20 01/27/21 03/30/20 History oral powder packet (Miralax) rosuvastatin 5 mg tablet (Crestor) 5 mg PO DAILY 03/30/20 01/27/21 03/30/20 History sevelamer carbonate 800 mg tablet 800 mg PO TID 03/30/20 01/27/21 03/30/20 Hist ory (Renvela) Physical Exam Vital Signs and Narrative: Vital Signs: Last Vital Signs Temp 97.8 F 01/27/21 09:54 Pulse 72 01/27/21 09:54 Resp 14 01/27/21 09:54 BP 164/73 H 01/27/21 09:54 Pulse Ox 100 01/27/21 09:54 Body Mass Index 23.6 Const: Other: Constitutional Awake and Alert, No apparent distress HEENT: PERRLA Neck Supple, No lymphadenopathy Cardiovascular RRR, No M/R/G, S1 S2, No S3 S4, No pedal edema Respiratory Lungs clear, No respiratory distress Gastrointestinal Non tender, Non-distended, mild epig tendernes Skin No rash Neurological Alert & oriented x3, no weakness in the legs, normal strenght, no numbness Muscular skeleta: Back pain, has some tenderness in lumbar region, no fluctuance Psychological Appropriate affect Results Labs CBC and Chem 7: 01/28/21 07:45 01/27/21 01:40 Labs: Laboratory Results - last 24 hr 01/27/21 01/27/21 01/27/21 01:02 01:39 01:39 MCV 88.6 MCH 28.7 MCHC 32.4 RDW 16.8 H Plt Count 374 MPV 9.2 L Immature Gran % (Auto) 0.4 Neut % (Auto) 87.6 H Lymph % (Auto) 4.9 L [place] % (Auto) 7.0 Eos % (Auto) 0.0 Baso % (Auto) 0.1 Lymph # (Auto) 0.7 L [place] # (Auto) 1.0 Eos # (Auto) 0.0 Baso # (Auto) 0.0 Abs Immat Gran (auto) 0.05 H Absolute Neuts (auto) 12.3 H Absolute Nucleated RBC 0.000 Nucleated RBC % (auto) 0.0 Anion Gap Estim Creat Clear Calc Estimated GFR POC Glucose 175 H Random Glucose Lactic Acid Lactic Acid Fup @ 2Hr Calcium Magnesium Total Bilirubin AST ALT Alkaline Phosphatase Troponin I High Sens 30.7 Total Protein Albumin Lipase Gastric Occult Blood Coronavirus (PCR) Influenza Type A (PCR) Influenza Type B (PCR) RSV RNA Qual (PCR) 01/27/21 01/27/21 01/27/21 01:39 01:40 01:40 MCV MCH MCHC RDW Plt Count MPV Immature Gran % (Auto) Neut % (Auto) Lymph % (Auto) [place] % (Auto) Eos % (Auto) Baso % (Auto) Lymph # (Auto) [place] # (Auto) Eos # (Auto) Baso # (Auto) Abs Immat Gran (auto) Absolute Neuts (auto) Absolute Nucleated RBC Nucleated RBC % (auto) Anion Gap 30 H Estim Creat Clear Calc 8.7 Estimated GFR 7 POC Glucose Random Glucose 200 H D Lactic Acid Lactic Acid Fup @ 2Hr Calcium 9.8 D Magnesium 2.1 Total Bilirubin 1.1 H AST 25 ALT 15 Alkaline Phosphatase 218 H D Troponin I High Sens Total Protein 8.3 H Albumin 4.4 Lipase 45 Gastric Occult Blood Coronavirus (PCR) NEGATIVE Influenza Type A (PCR) NEGATIVE Influenza Type B (PCR) NEGATIVE RSV RNA Qual (PCR) NEGATIVE 01/27/21 01/27/21 01/27/21 01:40 01:47 04:21 MCV MCH MCHC RDW Plt Count MPV Immature Gran % (Auto) Neut % (Auto) Lymph % (Auto) [place] % (Auto) Eos % (Auto) Baso % (Auto) Lymph # (Auto) [place] # (Auto) Eos # (Auto) Baso # (Auto) Abs Immat Gran (auto) Absolute Neuts (auto) Absolute Nucleated RBC Nucleated RBC % (auto) Anion Gap Estim Creat Clear Calc Estimated GFR POC Glucose Random Glucose Lactic Acid 3.7 H* Lactic Acid Fup @ 2Hr 2.0 Calcium Magnesium Total Bilirubin AST ALT Alkaline Phosphatase Troponin I High Sens Total Protein Albumin Lipase Gastric Occult Blood POS Coronavirus (PCR) Influenza Type A (PCR) Influenza Type B (PCR) RSV RNA Qual (PCR) Imaging Radiologist's Impressions: Impressions Abdomen/Pelvis CTA 01/27/21 01:27 IMPRESSION: * No evidence of aortic aneurysm or dissection. * No acute visceral abnormality within the chest, abdomen or pelvis * Sigmoid colonic diverticular disease without compelling evidence of active diverticulitis. * Chronic bilateral renal cortical atrophy. * Worsening degenerative and erosive changes at L5-S1 with loss of the previously seen vacuum disc. Findings are concerning for discitis/osteomyelitis at L5-S1 Chest CTA 01/27/21 01:27 IMPRESSION: * No evidence of aortic aneurysm or dissection. * No acute visceral abnormality within the chest, abdomen or pelvis * Sigmoid colonic diverticular disease without compelling evidence of active diverticulitis. * Chronic bilateral renal cortical atrophy. * Worsening degenerative and erosive changes at L5-S1 with loss of the previously seen vacuum disc. Findings are concerning for discitis/osteomyelitis at L5-S1 Head CT 01/27/21 04:30 IMPRESSION: Chronic microvascular ischemic changes with no CT evidence of acute intracranial abnormality. Assessment and Plan (1) ESRD (end stage renal disease): Status: Acute (2) Discitis: Qualifiers: Spinal region: lumbosacral Qualified Code(s): M46.47 - Discitis, unspecified, lumbosacral region Status: Acute (3) GI bleed: Status: Acute (4) Hypertensive urgency: Status: Acute (5) CHF (congestive heart failure): Status: Acute (6) GERD (gastroesophageal reflux disease): Status: Acute (7) Acute upper gastrointestinal bleeding: Status: Acute 70-year-old male with ESRD, HTN, CHF, HLD who presents emergency department for evaluation of back pain and coffee-ground emesis and admitted with concern of Disckitis and upper GIB 1/Back pain--finding of possible disckitis on CT. -Check CRP -Get MRI -ID consult -Renally dosed Vancomycin -Keep eye on Neuro changes. 2. ? GIB--there is no known varices, would not continue octreotide -recheck CBC -GI consult -IV PPI 3. Diabetes--Continue home regimen, SSI in hospital, diabetes diet 4. HTN--resume home meds 5. HLD--Statin 6. CHF--euvolemic 7. ESR--consult Nephrology for dialysis management 8. DVT prophylaxis--device d/t GI bleed Quality Stroke Does the patient have a stroke diagnosis?: No VTE Prior VTE?: No VTE Risk Level:: Medical - moderate - high VTE Device Contraindication: N/A - Device Ordered VTE Drug Contraindication: Treatment Not Tolerated
[2021-01-27 10:46] LABS: C Reactive Protein 5.71 mg/dL (< or = 0.50)
[2021-01-27] MEDS: Morphine Sulfate 2 MG/ML CARTRIDGE IVPUSH ×3 (11:11→21:49)
--- NOTE | 2021-01-27 11:29 | PC.NURSE ---
Report given to Yadira gao on IMC. Pt currently at MRI, infusion paused.
--- NOTE | 2021-01-27 11:58 | PC.NURSE ---
x1 attempt to give report to [facility], awaiting callback
[2021-01-27] MEDS: HYDROmorphone HCl 0.5 MG/0.5 ML SYRINGE IVPUSH (12:02)
--- NOTE | 2021-01-27 12:32 | PC.NURSE ---
x2 attempt to give report.
--- NOTE | 2021-01-27 12:40 | PC.NURSE ---
report given to rn
--- NOTE | 2021-01-27 14:28 | P.CNID_ITS ---
History of Present Illness Data of Consult Service Date: 01/27/21 Requesting physician: [facility] Primary Care Provider: Unknown Physician HPI Reason for consult: diskiitis,ostomyelitis He presents with 8/10 lumbar disk pain for last 48 hours He has had no prior back infection He has no hematemesis. Blood cultures are pending Review of Systems Review of Systems: Yes all other systems are reviewed and are negative PMFSH Past Medical History Medical History Amputation of left great toe CHF (congestive heart failure) Diabetes mellitus Discitis ESRD (end stage renal disease) GERD (gastroesophageal reflux disease) HTN (hypertension) Hyperlipidemia Presence of arteriovenous dialysis shunt Surgical History Surgical History H/O hernia repair H/O shoulder surgery Social History Social History Household Members: None Housing: House Do you presently have visiting nurse or other home services: Yes (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 If so, by whom?: No Do you feel safe in your current relationship?: No Current Relationship Is there a partner from a previous relationship who is making you feel unsafe now?: No Are you made to feel afraid or neglected: No Advance Directives: No Advance Directives Information Provided: No Do you have thoughts of harming others: None Do you have a plan to hurt others: No Plan Recently lost weight without trying: No Eating poorly because of decreased appetite: No Nutrition Risks: No Nutritional Risk Poor oral hygiene: No service: No Current occupational status: retired Meds Allergies Allergy/AdvReac Type Severity Reaction Status Date / Time metformin [METFORMIN] Allergy Intermediate IT MESSES Verified 02/01/21 19:25 ME UP [id number]-[id number] Reductase Allergy Intermediate NAUSEA Verified 02/01/21 19:25 Inhibitor [[id number] REDUCTASE INHIBITOR] cephalexin [From KEFLEX] Allergy Unknown UNSPECIFIED Verified 02/01/21 19:25 IT MESSES ME UP any form of statin Allergy Unknown Unknown Uncoded 02/01/21 19:25 glucophage Allergy Unknown Diarrhea Uncoded 02/01/21 19:25 Active Medications: Current Medications Generic Name Dose Route Start Last Admin Trade Name Freq PRN Reason Stop Dose Admin Octreotide Acetate 500 mcg/ 501 mls @ 25.05 mls/hr 01/27/21 02:15 01/27/21 12:36 Sodium Chloride IVCONT 25 mcg/hr .Q20H SAMI 25.05 mls/hr Infusion 25 MCG/HR Morphine Sulfate 2 mg 01/27/21 10:30 01/27/21 11:11 Morphine Sulfate 2 Mg/Ml Cartridge IVPUSH 2 mg Q4H PRN Administration Pain, Severe (Pain Scale 7-10) Sodium Chloride 3 ml 01/27/21 16:00 0.9 % Sodium Chloride Flush 3 Ml Syringe IVFLUSH QSHIFT [facility] Home Medications Medication Instructions Recorded Confirmed Last Taken Type aspirin 81 mg tablet,delayed 81 mg PO DAILY 03/30/20 02/02/21 03/30/20 History release megestrol 400 mg/10 mL (40 mg/mL) 400 mg PO DAILY 03/30/20 02/02/21 03/30/20 History oral suspension polyethylene glycol 3350 17 gram 17 g PO DAILY 03/30/20 02/02/21 03/30/20 History oral powder packet (Miralax) rosuvastatin 5 mg tablet (Crestor) 5 mg PO DAILY 03/30/20 02/02/21 03/30/20 History sevelamer carbonate 800 mg tablet 1,600 mg PO TIDWM 03/30/20 02/02/21 03/30/20 History (Renvela) ammonium lactate 12 % topical cream 1 appl TOPICAL BID PRN 01/29/21 02/02/21 Unknown History ondansetron HCl 4 mg tablet 1 tab PO BID PRN 01/29/21 02/02/21 Unknown History sevelamer carbonate 800 mg tablet 800 mg PO BID PRN 01/29/21 02/02/21 Unknown History Physical Exam Vital Signs: Vital Signs: Last Vital Signs Temp 97.8 F 01/27/21 09:54 Pulse 72 01/27/21 09:54 Resp 14 01/27/21 09:54 BP 164/73 H 01/27/21 09:54 Pulse Ox 100 01/27/21 09:54 Body Mass Index 23.6 Const: General: cooperative HENMT: Head: Yes normal to inspection Mouth: Normal oral and palatal mucosa present Eyes: General: appearance normal, both eyes and all related structures Resp: Effort & Inspection: normal respiratory effort Cardio: Rate: regular rate Rhythm: regular rhythm GI: Palpation (GI): Soft to palpation and nontender Back/Spine/Pelvis: Thoracic/Lumbar Spine: lumbar spinal tenderness and straight leg raise positive Skin: General skin exam: no rashes or lesions noted Results Labs CBC & Chem 7: 01/31/21 10:29 01/27/21 01:40 Labs: Short CBC 01/27/21 Range/Units 01:39 WBC 14.0 H (4.8-10.8) X10*3/uL Hgb 11.9 L (14.0-18.0) g/dl Hct 36.7 L (42-52) % Plt Count 374 (160-400) X10*3/uL BMP 01/27/21 01:40 Sodium 138 Potassium 4.3 Chloride 95 L Carbon Dioxide 17 L BUN 45 H Creatinine 8.00 H* Calcium 9.8 D Liver Function 01/27/21 Range/Units 01:40 Total Bilirubin 1.1 H (0.0-1.0) mg/dL AST 25 (5-37) U/L ALT 15 (0-40) U/L Alkaline Phosphatase 218 H D (39-117) U/L Albumin 4.4 (3.5-5.0) g/dL Assessment and Plan (1) ESRD (end stage renal disease): (2) Discitis: Qualifiers: Spinal region: lumbosacral Qualified Code(s): M46.47 - Discitis, unspecified, lumbosacral region Status: Resolved There is concern over staph or strep He has allergy listed to Ceftin but seems more of a diarrhea issue. He has blood cultures pending Suggest Ceftriaxone 2g post HD and Vancomycin post HD for 6 weeks likely Await blood cultures
[2021-01-27 17:10] LABS: Hematocrit 32.6 % (42-52); Hemoglobin 10.6 g/dl (14.0-18.0); Mean Corpuscular HGB Conc 32.5 g/dl (31.0-36.0); Mean Corpuscular Hemoglobin 28.6 pg (27.0-33.0); Mean Corpuscular Volume 88.1 fL (80-98); Mean Platelet Volume 9.5 fL (9.4-12.4); Platelet Count 380 X10*3/uL (160-400); Red Cell Distribution Width 16.8 % (11.0-16.0)
[2021-01-27 17:50] LABS: Erythrocyte Sedimentation Rate 75 MM/HR (0-15)
--- NOTE | 2021-01-27 18:38 | PM.CNNEP ---
History of Present Illness Reason for Consult Consult date: 01/27/21 Reason for consult: esrd Requesting physician: Elliot Galan Chief Complaint Chief complaint: Upper GIB Disckitis History of Present Illness Narrative: 70 y/o esrd on HD TTS ( [facility]) and his renal doc is Dr Octavio Barrera and I saw PT today to [facility] facilitate his care while an inpatient. He presennts with severe back pain and concern for discitis and getting seen by ID for ABX and futther eval . He is concerned that he needs his HD today. He has been on HD x 8 years and has had AVF in [facility]the [facility] avf does not work. Review of Systems Review of Systems Gen: no fever Resp: no sob, no cough CV: no chest, no MARTINEZ, no leg edema GI: coffee ground emesis outside of hospital, no stool incontience Neuro: No confusion, stated to be confused earlier, no wealkess in the legs, no saddle anesthesia MSK: Back pain, Yes all other systems are reviewed and are negative [facility] Past Medical History Medical History Amputation of left great toe CHF (congestive heart failure) Diabetes mellitus ESRD (end stage renal disease) GERD (gastroesophageal reflux disease) HTN (hypertension) Hyperlipidemia Presence of arteriovenous dialysis shunt Family History Pertinent family history: Diabetes Surgical History Surgical History (Updated 01/27/21 @ 10:16 by Elliot Galan MD) H/O hernia repair H/O shoulder surgery Social History Social History Household Members: None Housing: Apartment Do you presently have visiting nurse or other home services: Yes Alcohol intake: current Alcohol intake frequency: 0-2 drinks per day Patient Tobacco Use Status: Former Tobacco user Tobacco use type: Cigarette Smoked in Last 30 Days: No Patient Interested in Nicotine Replacement: No Patient Given Instructions on How to Stop Smoking: No Second Hand Smoke Exposure: No Use of substances other than those prescribed or required for medical reasons: No Have you been hit, kicked, punched, or otherwise hurt by someone within the past year? If so, by whom?: No Do you feel safe in your current relationship?: No Is there a partner from a previous relationship who is making you feel unsafe now?: No Are you made to feel afraid or neglected: No Advance Directives: No Do you have thoughts of harming others: None Do you have a plan to hurt others: No Plan Recently lost weight without trying: Yes How much weight loss: 2-13 pounds Eating poorly because of decreased appetite: Yes Nutrition screen score: 4 Nutrition Risks: Anorexia service: No Current occupational status: retired Meds Allergies Allergy/AdvReac Type Severity Reaction Status Date / Time metformin [METFORMIN] Allergy Intermediate IT MESSES Verified 03/30/20 20:02 ME UP Tjfmfvq-Hlz-Bzd Reductase Allergy Intermediate NAUSEA Verified 03/30/20 20:02 Inhibitor [[id number]-MTC REDUCTASE INHIBITOR] cephalexin [From KEFLEX] Allergy Unknown UNSPECIFIED Verified 03/30/20 20:02 IT MESSES ME UP any form of statin Allergy Unknown Unknown Uncoded 03/30/20 20:02 glucophage Allergy Unknown Diarrhea Uncoded 03/30/20 20:02 Active Medications: Current Medications Generic Name Dose Route Start Last Admin Trade Name Freq PRN Reason Stop Dose Admin Octreotide Acetate 500 mcg/ 501 mls @ 25.05 mls/hr 01/27/21 02:15 01/27/21 12:36 Sodium Chloride IVCONT 25 mcg/hr .Q20H SAMI 25.05 mls/hr Infusion 25 MCG/HR Ceftriaxone Sodium 2 gm/ 50 mls @ 100 mls/hr 01/27/21 21:00 Sodium Chloride IV 01/27/21 21:29 ONCE ONE Morphine Sulfate 2 mg 01/27/21 10:30 01/27/21 11:11 Morphine Sulfate 2 Mg/Ml Cartridge IVPUSH 2 mg Q4H PRN Administration Pain, Severe (Pain Scale 7-10) Ondansetron HCl 4 mg 01/27/21 15:46 Ondansetron Hcl 4 Mg/2 Ml Vial IVPUSH Q8H PRN Nausea and Vomiting Sodium Chloride 3 ml 01/27/21 16:00 01/27/21 17:42 0.9 % Sodium Chloride Flush 3 Ml Syringe IVFLUSH Not Given [facility] Home Medications Medication Instructions Recorded Confirmed Last Taken Type aspirin 81 mg tablet,delayed 81 mg PO DAILY 03/30/20 01/27/21 03/30/20 History release carvedilol 25 mg tablet 25 mg PO BID 03/30/20 01/27/21 03/30/20 History fosinopril 40 mg tablet 40 mg PO DAILY 03/30/20 01/27/21 03/30/20 History megestrol 400 mg/10 mL (40 mg/mL) 400 mg PO DAILY 03/30/20 01/27/21 03/30/20 History oral suspension minoxidil 2.5 mg tablet 5 mg PO BID 03/30/20 01/27/21 03/30/20 History nifedipine 90 mg tablet,extended 90 mg PO DAILY 03/30/20 01/27/21 03/30/20 History release 24 hr ondansetron 8 mg disintegrating 8 mg PO DAILY 03/30/20 01/27/21 03/30/20 History tablet polyethylene glycol 3350 17 gram 17 g PO DAILY 03/30/20 01/27/21 03/30/20 History oral powder packet (Miralax) rosuvastatin 5 mg tablet (Crestor) 5 mg PO DAILY 03/30/20 01/27/21 03/30/20 History sevelamer carbonate 800 mg tablet 800 mg PO TID 03/30/20 01/27/21 03/30/20 History (Renvela) Physical Exam Vital Signs: Last Vital Signs Temp 97.1 F 01/27/21 15:23 Pulse 74 01/27/21 15:23 Resp 18 01/27/21 15:23 BP 188/76 H 01/27/21 15:23 Pulse Ox 100 01/27/21 15:23 Body Mass Index 23.6 Const Other: Constitutional Awake and Alert, No apparent distress HEENT: PERRLA Neck Supple, No lymphadenopathy Cardiovascular RRR, No M/R/G, S1 S2, No S3 S4, No pedal edema Respiratory Lungs clear, No respiratory distress Gastrointestinal Non tender, Non-distended, mild epig tendernes Skin No rash Neurological Alert & oriented x3, no weakness in the legs, normal strenght, no numbness Muscular skeleta: Back pain, has some tenderness in lumbar region, no fluctuance Psychological Appropriate affect General: cooperative [facility] Head: Yes normal to inspection Mouth: Normal oral and palatal mucosa present Eyes General: appearance normal, both eyes and all related structures Resp Effort & Inspection: normal respiratory effort Cardio Rate: regular rate Rhythm: regular rhythm GI Palpation (GI): Soft to palpation and nontender Back/Spine/Pelvis Thoracic/Lumbar Spine: lumbar spinal tenderness and straight leg raise positive Skin General skin exam: no rashes or lesions noted Results Lab Results Result Diagrams: 01/27/21 16:48 01/27/21 01:40 Lab results: Chemistry 01/27/21 01:40 Sodium 138 Potassium 4.3 Carbon Dioxide 17 L BUN 45 H Creatinine 8.00 H* Calcium 9.8 D Hematology 01/27/21 01/27/21 01:39 16:48 WBC 14.0 H 20.0 H Hgb 11.9 L 10.6 L Plt Count 374 380 Assessment and Plan (1) ESRD (end stage renal disease): Status: Acute (2) Discitis: Qualifiers: Spinal region: lumbosacral Qualified Code(s): M46.47 - Discitis, unspecified, lumbosacral region Status: Acute There is concern over staph or strep He has allergy listed to Ceftin but seems more of a diarrhea issue. He has blood cultures pending Suggest Ceftriaxone 2g post HD and Vancomycin post HD for 6 weeks likely Await blood cultures 1, ESRD: TTS [facility] 2. Back pain and ques discitis infection 3. DM 4. HTN REC: HD today and draw labs at HD; ABX as per ID I informed Dr Barrera practice pt is inpt and will cover PT until he or one of his partners is available to see the patient Procedures Date of Service Date of Service: 01/27/21
[2021-01-27] MEDS: cefTRIAXone sodium 2 GM in 0.9 % Sodium Chloride 50 ML IV (21:49)
[2021-01-27 21:55] LABS: Vancomycin Random 5.6 mcg/mL (15-20)
[2021-01-27] MEDS: 0.9 % Sodium Chloride Flush 3 ML SYRINGE IVFLUSH (21:55)
[2021-01-28] MEDS: vancomycin HCL 750 MG in 0.9 % Sodium Chloride 250 ML 265 MG IV (01:01)
[2021-01-28 03:27] VITALS: BP 132/59; PULSE 71; RESP 18; TEMP 36.1; O2SAT 100
[2021-01-28] MEDS: Morphine Sulfate 2 MG/ML CARTRIDGE IVPUSH ×3 (05:45→17:32)
[2021-01-28 08:00] VITALS: BP 145/56; PULSE 66; RESP 18; TEMP 36; O2SAT 100
[2021-01-28 08:03] LABS: Hematocrit 36.1 % (42-52); Hemoglobin 11.6 g/dl (14.0-18.0); Mean Corpuscular HGB Conc 32.1 g/dl (31.0-36.0); Mean Corpuscular Hemoglobin 28.7 pg (27.0-33.0); Mean Corpuscular Volume 89.4 fL (80-98); Mean Platelet Volume 9.5 fL (9.4-12.4); Platelet Count 379 X10*3/uL (160-400); Red Blood Count 4.04 X10*6/uL (4.60-5.80); Red Cell Distribution Width 17.1 % (11.0-16.0); White Blood Count 16.7 X10*3/uL (4.8-10.8)
[2021-01-28] MEDS: Docusate Sodium 100 MG CAPSULE PO (10:39)
--- NOTE | 2021-01-28 11:52 | HO.PM.IMPN ---
Subjective Subjective Date of Service: 01/28/21 Review of Systems Gen: no fever Resp: no sob, no cough CV: no chest, no MARTINEZ, no leg edema GI: coffee ground emesis outside of hospital, no stool incontience, now with constiapation Neuro: No confusion, stated to be confused earlier, no wealkess in the legs, no saddle anesthesia MSK: Back pain, Physical Exam Vital Signs: Vital Signs: Last Vital Signs Temp 96.8 F 01/28/21 08:00 Pulse 66 01/28/21 08:00 Resp 18 01/28/21 08:00 BP 145/56 H 01/28/21 08:00 Pulse Ox 100 01/28/21 08:00 Body Mass Index 23.6 Const: Other: Constitutional Awake and Alert, No apparent distress HEENT: PERRLA Neck Supple, No lymphadenopathy Cardiovascular RRR, No M/R/G, S1 S2, No S3 S4, No pedal edema Respiratory Lungs clear, No respiratory distress Gastrointestinal Non tender, Non-distended, mild epig tendernes Skin No rash Neurological Alert & oriented x3, no weakness in the legs, normal strenght, no numbness Muscular skeleta: Back pain, has some tenderness in lumbar region, no fluctuance Psychological Appropriate affect Objective Data Current Medications Generic Name Dose Route Start Last Admin Trade Name Freq PRN Reason Stop Dose Admin Docusate Sodium 100 mg 01/28/21 10:30 01/28/21 10:39 Docusate Sodium 100 Mg Capsule PO 100 mg BID SAMI Administration Octreotide Acetate 500 mcg/ 501 mls @ 25.05 mls/hr 01/27/21 02:15 01/27/21 21:50 Sodium Chloride IVCONT 25 mcg/hr .Q20H SAMI 25.05 mls/hr Administration 25 MCG/HR Vancomycin HCl 750 mg/ Sodium 265 mls @ 265 mls/hr 01/29/21 17:00 Chloride IV 01/29/21 17:59 ONCE ONE Magnesium Hydroxide 30 ml 01/28/21 10:07 Milk Of Magnesia 30 Ml Oral.Susp PO DAILY PRN Constipation Morphine Sulfate 2 mg 01/27/21 10:30 01/28/21 10:39 Morphine Sulfate 2 Mg/Ml Cartridge IVPUSH 2 mg Q4H PRN Administration Pain, Severe (Pain Scale 7-10) Ondansetron HCl 4 mg 01/27/21 15:46 Ondansetron Hcl 4 Mg/2 Ml Vial IVPUSH Q8H PRN Nausea and Vomiting Pharmacy Consult 1 each 01/27/21 02:56 Consult Rx Vancomycin Dosing MISCELLANE DAILY PRN Consult order Polyethylene Glycol 17 gm 01/28/21 10:07 01/28/21 10:39 Polyethylene Glycol 3350 17 Gm Powd.Pack PO 17 gm DAILY PRN Administration Constipation Sodium Chloride 3 ml 01/27/21 16:00 01/28/21 07:56 0.9 % Sodium Chloride Flush 3 Ml Syringe IVFLUSH Not Given QSHIFT [facility] Labs CBC & Chem 7: 01/28/21 07:45 01/27/21 01:40 Labs: Laboratory Results - last 24 hr 01/27/21 01/27/21 01/27/21 16:48 16:48 21:11 MCV 88.1 MCH 28.6 MCHC 32.5 RDW 16.8 H Plt Count 380 MPV 9.5 Absolute Nucleated RBC 0.000 Nucleated RBC % (auto) 0.0 ESR 75 H Random Vancomycin 5.6 L 01/28/21 07:45 MCV 89.4 MCH 28.7 MCHC 32.1 RDW 17.1 H Plt Count 379 MPV 9.5 Absolute Nucleated RBC 0.000 Nucleated RBC % (auto) 0.0 ESR Random Vancomycin Microbiology Microbiology Results: Microbiology 01/27/21 01:43 Blood Culture - Preliminary Blood - Venous No growth after 24 hours. 01/27/21 01:43 Blood Culture - Preliminary Blood - Venous No growth after 24 hours. Assessment and Plan (1) Discitis: Status: Acute (2) ESRD (end stage renal disease): Status: Acute Assessment and Plan: 70-year-old male with ESRD, HTN, CHF, HLD who presents emergency department for evaluation of back pain and coffee-ground emesis and admitted with concern of Disckitis and upper GIB 1/Back pain--finding of diskitis on CT and MRI -ID consult recommends post dialysis Vanco and Ceftriaxone for now -Keep eye on Neuro changes. -Echo tomorrow 2. ? GIB--there is no known varices, H/H unchanged.P -DC octreotide -GI recommends PPI 3. Diabetes--Continue home regimen, SSI in hospital, diabetes diet 4. HTN--resume home meds 5. HLD--Statin 6. CHF--euvolemic 7. ESR--consult Nephrology for dialysis management 8/ constipation --bowel regimen 8. DVT prophylaxis--device d/t GI bleed PT eval tomorrow if persistent pain and not able to walk Quality Stroke Does the patient have a stroke diagnosis?: No VTE Prior VTE?: No VTE Risk Level:: Medical - moderate - high VTE Device Contraindication: N/A - Device Ordered VTE Drug Contraindication: Treatment Not Tolerated
[2021-01-28 12:00] VITALS: RESP 18
--- NOTE | 2021-01-28 13:25 | CONS_ITS ---
DATE OF SERVICE: 01/28/2021 REFERRING PHYSICIAN: Elliot Galan MD REASON FOR CONSULTATION: Coffee-grounds emesis. HISTORY OF PRESENT ILLNESS: The patient is a pleasant 70-year-old man, who is known from prior evaluation. He was admitted to the hospital after presenting to the emergency room on January 27 with complaints of back pain. He also had reported coffee-grounds emesis prior to admission while at home. He has had some nausea, but denies dysphagia or deshawn hematemesis. There has been no melena. He was evaluated in the fall with a similar presentation and endoscopy at that time in March showed erosive esophagitis. The patient does not recall taking omeprazole at home. He was started on octreotide on admission, but this has been discontinued. Laboratory studies on admission showed a hematocrit of 36.7, which was down from 44 in March. This has remained relatively stable. He has not required blood transfusion. There has been no reported melena since admission. PAST MEDICAL HISTORY: 1. Back pain with diskitis. 2. Diabetes mellitus. 3. Hypertension. 4. Hyperlipidemia. 5. Gastroesophageal reflux disease. 6. End-stage renal disease, on hemodialysis. 7. Congestive heart failure. 8. Left great toe amputation. CURRENT MEDICATIONS: Current medication list is reviewed in the chart. ALLERGIES: THERE ARE MULTIPLE MEDICATION ALLERGIES. FAMILY HISTORY: This is reviewed with the patient and is noncontributory. SOCIAL HISTORY: There is no current tobacco, alcohol, or substance abuse. REVIEW OF SYSTEMS: SKIN: No pruritus. HEENT: Negative. CARDIOPULMONARY: No shortness of breath or chest pain. GASTROINTESTINAL: As above. He denies recent use of NSAIDs. GENITOURINARY: Negative. NEUROPSYCHIATRIC: Negative. PHYSICAL EXAMINATION: GENERAL: Shows a pleasant male, lying comfortably in bed, watching television. VITAL SIGNS: Reviewed in the electronic medical record and are stable. SKIN: Anicteric. HEENT: Shows no scleral icterus. NECK: Without lymphadenopathy or thyromegaly. LUNGS: Clear. HEART: Shows regular rate and rhythm. S1, S2. No murmur. ABDOMEN: Soft without focal masses or tenderness. Bowel sounds are present. No organomegaly is noted. EXTREMITIES: Without edema. LABORATORY DATA: Reviewed. IMPRESSION: Coffee-grounds emesis. This appears consistent with his previously identified erosive esophagitis. He has not had any melena. His hematocrit has remained stable. I would recommend treating him with a proton pump inhibitor. At this time as he is currently stable, I do not think he needs endoscopy. I would also recommend monitoring his hematocrit. Thanks for asking me to see him. I will follow him in the hospital with you. MD OSIRIS Maldonado/DIGNA / [phone]
[2021-01-28 15:22] VITALS: BP 163/70; PULSE 66; RESP 18; TEMP 36.5; O2SAT 99
--- NOTE | 2021-01-28 16:12 | MHC.CM.PN ---
CM MET WITH PT WHO RERPOTS HE LIVES ALONE AND HAS [employer] [facility] THROUGH [facility] 3X/WEEK. PT REPORTS HE ALSO GOES TO [place] TUE/[place]/SAT VIA [employer] TRANSPORT. PT HAS A HCP ON FILE NAMING HIS SON, GREG HIS PRIMARY AGENT. PT REPORTS HIS PCP IS [facility]. IMM DELIVERED CURRENT DC PLAN IS HOME WITH RESUMPTION OF SERVICES PT WILL LIKELY USE THE SHUTTLE AT DC ASSUMING HIS BACK PAIN IS IMPROVED
[2021-01-28] MEDS: Omeprazole 20 MG CAPSULE.DR PO (16:30)
[2021-01-28] MEDS: 0.9 % Sodium Chloride Flush 3 ML SYRINGE IVFLUSH (16:30)
--- NOTE | 2021-01-28 19:01 | PM.PNNEP ---
Subjective Subjective Date of Service: 01/28/21 Principal diagnosis: ESRD Physical Exam Vital Signs: Vital Signs: Last Vital Signs Temp 97.7 F 01/28/21 15:22 Pulse 66 01/28/21 15:22 Resp 18 01/28/21 15:22 BP 163/70 H 01/28/21 15:22 Pulse Ox 99 01/28/21 15:22 Body Mass Index 23.6 Const: Other: Constitutional Awake and Alert, No apparent distress HEENT: PERRLA Neck Supple, No lymphadenopathy Cardiovascular RRR, No M/R/G, S1 S2, No S3 S4, No pedal edema Respiratory Lungs clear, No respiratory distress Gastrointestinal Non tender, Non-distended, mild epig tendernes Skin No rash Neurological Alert & oriented x3, no weakness in the legs, normal strenght, no numbness Muscular skeleta: Back pain, has some tenderness in lumbar region, no fluctuance Psychological Appropriate affect General: cooperative HENMT: Head: Yes normal to inspection Mouth: Normal oral and palatal mucosa present Eyes: General: appearance normal, both eyes and all related structures Resp: Effort & Inspection: normal respiratory effort Cardio: Rate: regular rate Rhythm: regular rhythm GI: Palpation (GI): Soft to palpation and nontender Back/Spine/Pelvis: Thoracic/Lumbar Spine: lumbar spinal tenderness and straight leg raise positive Skin: General skin exam: no rashes or lesions noted Objective Data Labs CBC & Chem 7: 01/28/21 07:45 01/27/21 01:40 Labs: Laboratory Results - last 24 hr 01/27/21 01/28/21 21:11 07:45 WBC 16.7 H RBC 4.04 L Hgb 11.6 L Hct 36.1 L MCV 89.4 MCH 28.7 MCHC 32.1 RDW 17.1 H Plt Count 379 MPV 9.5 Absolute Nucleated RBC 0.000 Nucleated RBC % (auto) 0.0 Random Vancomycin 5.6 L Microbiology Microbiology Results: Microbiology 01/27/21 01:43 Blood - Venous Blood Culture - Preliminary No growth after 24 hours. 01/27/21 01:43 Blood - Venous Blood Culture - Preliminary No growth after 24 hours. Procedures Date of Service Date of Service: 01/28/21 Assessment & Plan Assessment and plan (1) ESRD (end stage renal disease): Status: Acute (2) Discitis: Status: Acute Assessment and Plan: 1, ESRD: TTS [facility] unit 2. Back pain and ques discitis infection 3. DM 4. HTN REC: cont HD TTS, ABX as per ID I informed Dr Barrera practice pt is inpt and will cover PT until he or one of his partners is available to see the patient Time Spent With Patient Time: Total time spent is greater than 50% in coordination of care (as documented) at patient's floor/unit and/or counseling patient: Progress Note: Quality Stroke Does the patient have a stroke diagnosis?: No
[2021-01-28 19:13] VITALS: BP 152/70; PULSE 71; RESP 18; TEMP 37.1; O2SAT 100
[2021-01-28 23:28] VITALS: BP 164/66; PULSE 70; RESP 18; TEMP 36.1; O2SAT 98
[2021-01-29] VITALS (7 sets, daily range): BP systolic 137–152; BP diastolic 64–73; PULSE 60–66; RESP 17–20; TEMP 35.9–36.8; O2SAT 96–100; BMI 23.1
[2021-01-29] MEDS: 0.9 % Sodium Chloride Flush 3 ML SYRINGE IVFLUSH ×4 (00:08→23:49)
[2021-01-29] MEDS: Morphine Sulfate 2 MG/ML CARTRIDGE IVPUSH ×5 (00:36→21:50)
[2021-01-29] MEDS: Omeprazole 20 MG CAPSULE.DR PO ×2 (05:41→17:37)
[2021-01-29] MEDS: Docusate Sodium 100 MG CAPSULE PO ×2 (08:12→21:47)
--- NOTE | 2021-01-29 08:58 | PM.PNNEP ---
Subjective Subjective Date of Service: 01/30/21 Principal diagnosis: ESRD Physical Exam Vital Signs: Vital Signs: Last Vital Signs Temp 96.8 F 01/29/21 07:38 Pulse 65 01/29/21 07:38 Resp 18 01/29/21 07:38 BP 152/66 H 01/29/21 07:38 Pulse Ox 99 01/29/21 07:38 Body Mass Index 23.1 Const: Other: Constitutional Awake and Alert, No apparent distress HEENT: PERRLA Neck Supple, No lymphadenopathy Cardiovascular RRR, No M/R/G, S1 S2, No S3 S4, No pedal edema Respiratory Lungs clear, No respiratory distress Gastrointestinal Non tender, Non-distended, mild epig tendernes Skin No rash Neurological Alert & oriented x3, no weakness in the legs, normal strenght, no numbness Muscular skeleta: Back pain, has some tenderness in lumbar region, no fluctuance Psychological Appropriate affect General: cooperative HENMT: Head: Yes normal to inspection Mouth: Normal oral and palatal mucosa present Eyes: General: appearance normal, both eyes and all related structures Resp: Effort & Inspection: normal respiratory effort Cardio: Rate: regular rate Rhythm: regular rhythm GI: Palpation (GI): Soft to palpation and nontender Back/Spine/Pelvis: Thoracic/Lumbar Spine: lumbar spinal tenderness and straight leg raise positive Skin: General skin exam: no rashes or lesions noted Objective Data Labs CBC & Chem 7: 01/28/21 07:45 01/27/21 01:40 Microbiology Microbiology Results: Microbiology 01/27/21 01:43 Blood - Venous Blood Culture - Preliminary No growth after 48 hours. 01/27/21 01:43 Blood - Venous Blood Culture - Preliminary No growth after 48 hours. Procedures Date of Service Date of Service: 01/30/21 Assessment & Plan Assessment and plan (1) ESRD (end stage renal disease): Status: Acute (2) Discitis: Status: Acute Assessment and Plan: 1, ESRD: TTS [facility] 2. Back pain and ques disk infection 3. DM 4. HTN REC: cont HD TTS, ABX as per ID I informed Dr Barrera practice pt is inpt and will cover PT until he or one of his partners is available to see the patient Time Spent With Patient Time: Total time spent is greater than 50% in coordination of care (as documented) at patient's floor/unit and/or counseling patient: Progress Note: Quality Stroke Does the patient have a stroke diagnosis?: No
[2021-01-29 09:38] LABS: Vancomycin Random 11.2 mcg/mL (15-20)
[2021-01-29] MEDS: carvediloL 25 MG TABLET PO ×2 (10:05→21:47)
[2021-01-29] MEDS: Aspirin Enteric Coated 81 MG TABLET.DR PO (10:05)
[2021-01-29] MEDS: Sevelamer Carbonate Tablet 800 MG TABLET PO (11:28)
--- NOTE | 2021-01-29 11:45 | P.DS_ITS ---
DS: Providers Provider Date of Service: 02/01/21 Date of admission: 01/27/21 10:30 Primary care physician: Unknown Physician Consults: 01/27/21 10:25 Consult to Gastroenterology Routine Consulting Provider: Kenny Beck Reason for consultation: gib Has provider been notified: No Consult to Infectious Diseases Routine Consulting Provider: Ashanti Ramirez Reason for consultation: disckitis Consult to Nephrology Routine Consulting Provider: Jose Miguel Pa Reason for consultation: ESRD, admitted with disckitis Has provider been notified: No DS: Diagnosis Discharge Diagnosis (1) ESRD (end stage renal disease): (2) Discitis: Status: Resolved DS: Summary Hospital Course Hospital Course: 70-year-old male? with ESRD, HTN, CHF, HLD who presents emergency department for evaluation of back pain and coffee-ground emesis.?? He states that he has been having the back for about 3 days, located in the lumbar regieon worse with movment, he reports no weakness in legs, no numbness, no urinary or stool incontience, no fever. Unrelated to this he also report coffee-ground emesis at home, there is no history of cirrhosis or know esophageal varices. His CBC is stable, no active bleed. He is getting octreotide, I am not quite sure of the reasoning behind.? Work up with CT has revealed? L5-S1 diskitis verses osteoarthritis and has been given? Zosyn and vancomycin IV and blood cultures s ent. Patient also had a CT scan of the chest abdomen pelvis with IV contrast which were unremarkable.? He reported had an episode of confusion after morphine and head CT is also negative. ? The patient? was also found to have an elevated blood pressure of 199/77? and treated with IV hydralazine and labetalol. Hospital course: 1. Diskitis--Seen on both CT and MRI, no collectible abscess. Being treated with IV Vancomycin and IV Ceftriaxone. Culture grew Micromonas micros sensitivity not routinely done for this. I discussed it further with ID and recommending Ceftriaxone 2 gram post dialysis for 4 weeks. Oxycodone for pain 2. ? GIB--he reportedly had an episode of coffee ground emesis before coming in and none since. Was given octreotide in ED, he does not have cirrhosis or varices and therefore was discontinued. Was seen by Dr. Beck (GI) with no recommendation for procedure and will continue oral PPI. Hemoglobin and hematocrit have been stable. 3. Diabetes--diet controlled. 4. HTN--Had accelerated Htn on presentation but controlled since been here, to continue home mes 5. HLD--Statin 6. CHF--euvolemic 7. ESR--consult Nephrology for dialysis management 8/ constipation --bowel regimen including Miralax Time Spent with Patient Time attestation: Total time spent providing and/or coordinating discharge services: Discharge coordination time: Greater than 30 minutes Quality: Stroke Does the patient have a stroke diagnosis?: No Physical Exam Vital Signs: Vital Signs: Selected Entries 02/01/21 07:39 Temperature 97.3 F Pulse Rate 64 Respiratory Rate 17 Blood Pressure 137/51 L Pulse Oximetry 100 Oxygen Delivery Me thod Room Air Const: Other: Other:?Constitutional Awake and Alert, No apparent distress HEENT: PERRLA Neck Supple, No lymphadenopathy Cardiovascular RRR, No M/R/G, S1 S2, No S3 S4, No pedal edema Respiratory Lungs clear, No respiratory distress Gastrointestinal Non tender, Non-distended, mild epig tendernes Skin No rash Neurological Alert & oriented x3, no weakness in the legs, normal strenght, no numbness Muscular skeleta: Back pain, has some tenderness in lumbar region, no fluctuance Psychological Appropriate affect DS: Data Data Completed and Pending Completed studies during hospitalization [Text1]: Procedures Inspection of Upper Intestinal Tract, Via Natural or Artificial Opening Endoscopic (03/31/20) Performance of Urinary Filtration, Intermittent, Less than 6 Hours Per Day (03/31/20) Labs on day of discharge: Laboratory Results - last 24 hr 01/29/21 08:33 Random Vancomycin 11.2 L Preliminary micro results at discharge 01/27/21 01:43 Blood Culture - Preliminary Blood - Venous No growth after 48 hours. 01/27/21 01:43 Blood Culture - Preliminary Blood - Venous No growth after 48 hours. Discharge Plan Discharge Anticipated Discharge Date/Time: 02/01/21 15:16 Patient Disposition: Home, Self-Care Discharge Diagnosis: diskitis Referrals: Physician,Unknown [Physician] - 1 Week Discharge Medications: New ceftriaxone 2 gram Recon Soln 2 g IV TUTHSA@1600 Qty: 12 RF: 0 oxycodone 5 mg tablet 5 mg PO Q6H PRN (Reason: pain (scale score 7-10)) Qty: 14 RF: 0 Continued megestrol 400 mg/10 mL (40 mg/mL) Suspension 400 mg PO DAILY RF: 0 Hold Instructions: Resume on 04/17/20. start as per pcp. polyethylene glycol 3350 [Miralax] 17 gram Powder In Packet 17 g PO DAILY RF: 0 aspirin 81 mg Tablet,Delayed Release (Dr/Ec) 81 mg PO DAILY RF: 0 Hold Instructions: Resume on 04/17/20. monitor H&H outpatient with PCP and Nephrology- is going to repeat the labs hematocrit and renal function electrolytes outpatient. rosuvastatin [Crestor] 5 mg Tablet 5 mg PO DAILY RF: 0 sevelamer carbonate [Renvela] 800 mg Tablet 1,600 mg PO TIDWM RF: 0 omeprazole 40 mg Capsule,Delayed Release(Dr/Ec) 40 mg PO BID@0630,1630 Qty: 60 RF: 0 ondansetron HCl 4 mg tablet 1 tab PO BID PRN (Reason: nausea/vomiting) RF: 0 ammonium lactate 12 % cream 1 appl topical BID PRN (Reason: Dry Skin) RF: 0 sevelamer carbonate 800 mg tablet 800 mg PO BID PRN (Reason: snacks) RF: 0 No Action carvedilol 25 mg Tablet 25 mg PO BID Qty: 60 RF: 0 Discharge Orders: Discharge Order (Routine); Ordered 02/01/21 Ordered By: Elliot Galan Diet: advance to usual diet Activity on Discharge: As tolerated Stand Alone Forms: Patient Portal Discharge page Care Plan Goals: Full recovery from diskiitis Health Concerns: diskitis Plan of Treatment: Ceftriaxone 2 gram after dialysis for 4 weeks Assessment: As above Discharge Date/Time: 02/01/21 16:44
--- NOTE | 2021-01-29 11:52 | HO.PM.IMPN ---
Subjective Subjective Date of Service: 01/29/21 Interval History: F/u on diskitis, back pain is better today No fever. No urinary or stool incontient, no saddle anesthesia Review of Systems Gen: no fever Resp: no sob, no cough CV: no chest, no MARTINEZ, no leg edema GI: coffee ground emesis outside of hospital, no stool incontience, now with constiapation Neuro: No confusion, stated to be confused earlier, no wealkess in the legs, no saddle anesthesia MSK: Back pain, Constitutional General: AO X 3, no acute distress Resp: CTA bilateral CVS: S1,S2,RRR GI: +BS, NT, no distention Skin: No rash Neuro: motor grossly intact, no numbness, no weakness in the legs Psych: appropriate affect Physical Exam Vital Signs: Vital Signs: Last Vital Signs Temp 96.8 F 01/29/21 07:38 Pulse 65 01/29/21 07:38 Resp 18 01/29/21 07:38 BP 152/66 H 01/29/21 07:38 Pulse Ox 99 01/29/21 07:38 Body Mass Index 23.1 Const: Other: Constitutional Awake and Alert, No apparent distress HEENT: PERRLA Neck Supple, No lymphadenopathy Cardiovascular RRR, No M/R/G, S1 S2, No S3 S4, No pedal edema Respiratory Lungs clear, No respiratory distress Gastrointestinal Non tender, Non-distended, mild epig tendernes Skin No rash Neurological Alert & oriented x3, no weakness in the legs, normal strenght, no numbness Muscular skeleta: Back pain, has some tenderness in lumbar region, no fluctuance Psychological Appropriate affect Objective Data Current Medications Generic Name Dose Route Start Last Admin Trade Name Dhara PRN Reason Stop Dose Admin Aspirin 81 mg 01/30/21 09:00 01/29/21 10:05 Aspirin Enteric Coated 81 Mg Tablet. PO 81 mg DAILY SAMI Administration Carvedilol 25 mg 01/29/21 09:30 01/29/21 10:05 Carvedilol 25 Mg Tablet PO 25 mg BID SAMI Administration Protocol Docusate Sodium 100 mg 01/28/21 10:30 01/29/21 08:12 Docusate Sodium 100 Mg Capsule PO 100 mg BID SAMI Administration Vancomycin HCl 750 mg/ Sodium 265 mls @ 265 mls/hr 01/30/21 17:00 Chloride IV Q48H SAMI Vancomycin HCl 500 mg/ Sodium 110 mls @ 110 mls/hr 01/29/21 11:42 Chloride IV 01/29/21 12:41 ONCE ONE Magnesium Hydroxide 30 ml 01/28/21 10:07 Milk Of Magnesia 30 Ml Oral.Susp PO DAILY PRN Constipation Megestrol Acetate 400 mg 01/29/21 09:30 01/29/21 11:28 Megestrol Acetate 400 Mg/10 Ml Oral.Susp PO Not Given DAILY [facility] Morphine Sulfate 2 mg 01/27/21 10:30 01/29/21 10:21 Morphine Sulfate 2 Mg/Ml Cartridge IVPUSH 2 mg Q4H PRN Administration Pain, Severe (Pain Scale 7-10) Omeprazole 20 mg 01/28/21 16:30 01/29/21 05:41 Omeprazole 20 Mg Capsule.Dr PO 20 mg BID@0630,1630 [facility] Administration Ondansetron HCl 4 mg 01/27/21 15:46 Ondansetron Hcl 4 Mg/2 Ml Vial IVPUSH Q8H PRN Nausea and Vomiting Pharmacy Consult 1 each 01/27/21 02:56 Consult Rx Vancomycin Dosing MISCELLANE DAILY PRN Consult order Polyethylene Glycol 17 gm 01/28/21 10:07 01/28/21 10:39 Polyethylene Glycol 3350 17 Gm Powd.Pack PO 17 gm DAILY PRN Administration Constipation Polyethylene Glycol 17 gm 01/29/21 09:30 01/29/21 10:21 Polyethylene Glycol 3350 17 Gm Powd.Pack PO 17 gm DAILY SAMI Administration Sevelamer Carbonate 1,600 mg 01/29/21 12:00 Sevelamer Carbonate Tablet 800 Mg Tablet PO TIDWM [facility] Sevelamer Carbonate 800 mg 01/29/21 11:46 Sevelamer Carbonate Tablet 800 Mg Tablet PO BID PRN snacks Sodium Chloride 3 ml 01/27/21 16:00 01/29/21 08:12 0.9 % Sodium Chloride Flush 3 Ml Syringe IVFLUSH 3 ml QSHIFT [facility] Administration Labs CBC & Chem 7: 01/28/21 07:45 01/27/21 01:40 Labs: Laboratory Results - last 24 hr 01/29/21 08:33 Random Vancomycin 11.2 L Microbiology Microbiology Results: Microbiology 01/27/21 01:43 Blood Culture - Preliminary Blood - Venous No growth after 48 hours. 01/27/21 01:43 Blood Culture - Preliminary Blood - Venous No growth after 48 hours. Assessment and Plan (1) Discitis: Status: Acute (2) ESRD (end stage renal disease): Status: Acute Assessment and Plan: 70-year-old male with ESRD, HTN, CHF, HLD who presents emergency department for evaluation of back pain and coffee-ground emesis and admitted with concern of Disckitis and upper GIB 1/Back pain--finding of diskitis on CT and MRI -ID consult recommends post dialysis Vanco and Ceftriaxone for 6 weeks -hold of echo since no bacteremia . Vanco level is 11--give 500 today 2. ? GIB--H/H stable, no further episode of coffee ground emesis. PPI, GI recommend no intervention 3. Diabetes--Not on meds 4. HTN--continue home meds 5. HLD--Statin 6. CHF--euvolemic 7. ESR--consult Nephrology for dialysis management, TTS 8/ constipation --bowel regimen, Miralax 8. DVT prophylaxis--device d/t GI bleed PT eval tomorrow if persistent pain and not able to walk Quality Stroke Does the patient have a stroke diagnosis?: No VTE Prior VTE?: No VTE Risk Level:: Medical - moderate - high VTE Device Contraindication: N/A - Device Ordered VTE Drug Contraindication: Treatment Not Tolerated
[2021-01-29] MEDS: vancomycin HCL 500 MG in 0.9 % Sodium Chloride 100 ML 110 MG IV (14:59)
--- NOTE | 2021-01-29 15:17 | MHC.SLORD ---
Speech Language Pathology Order Status: Received order for speech consult. Spoke with Dr. Galan. Order was placed by mistake and will be cancelled.
--- NOTE | 2021-01-29 16:16 | MHC.CLN ---
NUTRITION REPORTS RECENT DECREASE IN APPETITE DUE TO BACK PAIN. APPETITE IS USUALLY GOOD. APPEARS WELL EDUCATED ON DIET WITH ESRD AND DIABETES. RECEIVES HEMODIALYSIS. DIET IS DIABETIC 1800 KCAL, PROVIDING 25 KCAL/KG. ABLE TO MAKE OWN FOOD CHOICES. DID NOT QUANTIFY WEIGHT LOSS BUT ACKNOWLEDGED WEIGHT FLUCTUATION WITH DIALYSIS.
[2021-01-29] MEDS: Milk of Magnesia 30 ML ORAL.SUSP PO (17:24)
[2021-01-29] MEDS: Sevelamer Carbonate Tablet 800 MG TABLET 1600 MG PO (17:38)
[2021-01-30] VITALS (7 sets, daily range): BP systolic 122–152; BP diastolic 62–82; PULSE 58–62; RESP 16–20; TEMP 36.1–36.2; O2SAT 98–100; BMI 22.9
[2021-01-30] MEDS: Morphine Sulfate 2 MG/ML CARTRIDGE IVPUSH ×2 (03:10→10:46)
[2021-01-30] MEDS: Omeprazole 20 MG CAPSULE.DR PO ×2 (05:13→16:25)
--- NOTE | 2021-01-30 05:15 | PC.NURSE ---
MORNING PRILOSEC GIVEN EARLY PATIENT SCHEDULED FOR 0600 DIALYSIS
--- NOTE | 2021-01-30 06:28 | PC.NURSE ---
0620 PATIENT TRANSPORTED VIA HOSPITAL BED FROM ROOM 376 TO FOURTH FLOOR DIALYSIS ROOM. TRANSFER ASSIST BY GERMINATION WORKER, PATIENT WASHED AND HAD A BM IN BR PRIOR TO TRANSFER, MASK WORN, PT ALERT, CALM, AND AWARE OF DIALYSIS PROCEDURE.
--- NOTE | 2021-01-30 07:30 | CA_ITS ---
Transthoracic Echocardiogram Patient (Last, First, Middle): Tab Purcell, Gender: Male Date of : 1950 Age: 70 Procedure Date: 01/30/2021 Procedure Type: Transthoracic Echocardiogram Location: S3E Height: 175.26 cm Weight: 70.31 kg BSA: 1.85 m2 Heart Rate: bpm BP: 140 / 82 mmHg Mineral Surveying Technician: CRISTHIAN Calderon MD: Elliot Galan MD Surveillance Operator: Cresencio Levy MD Symptoms: bacteremia, rule out endocarditis Study Quality: Good ECG Rhythm: Sinus Conclusions: - 1. Normal LV systolic function with mild LVH with impaired relaxation filling pattern 2. Thickened aortic and mitral valve with mild calcification, vegetation cannot be completely ruled out 3. Normal cardiac valvular Doppler 4. Moderately elevated right ventricular systolic pressure 5. No pericardial effusion Findings Left Ventricle Normal left ventricular size and systolic function. There is mildly increased left ventricular wall thickness. The visually estimated ejection fraction is between 55-60%. Spectral Doppler is indicative of an impaired relaxation filling pattern. E/E prime ratio is between 8 and 15 consistent with indeterminate filling pressures. Right Ventricle Normal right ventricular cavity size and systolic function. Atria The left atrium is likely dilated. There is no evidence of interatrial shunt. The right atrium is normal in size. Aortic Valve There is mild calcification of the aortic valve. There is moderate thickening of the aortic valve. There is no aortic valve stenosis. There is no aortic valve regurgitation. Mitral Valve There is moderate anterior and posterior mitral leaflet thickening. There is mild mitral annular calcification. There is trace mitral valve regurgitation. There is no mitral valve stenosis. Pulmonic Valve The pulmonic valve is likely normal. There is trace pulmonic valve regurgitation. Tricuspid Valve Normal tricuspid valve structure. There is mild tricuspid valve regurgitation. Moderate pulmonary hypertension is present. Great Vessels All visible segments of the aorta are normal in size. The pulmonary artery was not well visualized. Venous The inferior vena cava is normal in size and collapses greater than 50% with inspiration. Pericardium/Pleural There is no evidence of pericardial effusion. Prior Study Comparison No prior study available for comparison. Recommendations, Care & Conclusions Consider a RICK if clinically appropriate. Measurements 2D Linear Measurements RVIDd: 3.71 RVIDd Index: 2.01 IVSd: 1.43 0.6-0.9/0.6-1.0 cm LVIDd: 4.84 3.9-5.3/4.2-5.9 cm LVIDd Index: 2.62 2.4-3.2/2.2-3.1 cm/m2 LVIDs: 3.18 2.0-3.6 cm LVPWd: 1.22 0.7-1.1 cm Ao Root: 3.10 2.1-3.5 cm LA Diam: 4.30 2.7-3.8/3.0-4.0 cm LAIDs Index: 2.32 1.5-2.3 cm/m2 LV Mass: 319.08 67-162/88-224 g LV Mass Index: 172.48 43-95/49-115 g/m2 LVOT Diam: 2.20 3.0+(-)1.3 cm 2D Systolic Function EF 4C: 52.40 >55% EF 2C: 61.40 >55% EF BiP: 58.10 >55% Mitral Valve MV Pk E: 0.68 MV PK A: 0.89 MV Decel Time: 360.00 E/A: 0.80 E'Lateral: 6.85 E'Medial: 4.03 E/E' Med: 16.90 E/E' Lat: 9.90 Aortic Valve AoV Pk William: 1.91 AoV Mn William: 1.31 AoV VTI: 0.40 AoV Pk Grad: 15.00 Aov Mn Grad: 8.00 SOY Cont.VTI: 1.76 LVOT LVOT Pk William: 0.73 LVOT Mn William: 0.50 LVOT VTI: 0.19 LVOT Pk Grad: 2.00 LVOT Mn Grad: 1.00 LVOT Diam: 2.20 LVOT Area: 3.80 Diastolic Function MV Pk E: 0.68 MV Pk A: 0.89 E/A: 0.80 E'Medial: 4.03 E/E' Med: 16.90 E' Laterial: 6.85 E/E' Lat: 9.90 Tricuspid Valve TR Pk William: 3.34 TR Pk Grad: 45.00 RA Press: 3.00 RVSP: 48.00 Great Vessels Aorta Ao Root-2D: 3.10 2.0-3.7 cm Ao Asc: 3.10 2.1-3.4 cm Ao Arch: 2.60 Updated in Other Vendor System with Status of Final Cresencio Levy MD electronically signed on 01/30/2021 3:48:50 PM with status of Final
--- NOTE | 2021-01-30 08:59 | PM.PNNEP ---
Subjective Subjective Date of Service: 01/30/21 Principal diagnosis: ESRD Interval history: seen on dialysis today Physical Exam Vital Signs: Vital Signs: Last Vital Signs Temp 96.9 F 01/30/21 02:54 Pulse 58 01/30/21 02:54 Resp 18 01/30/21 04:12 BP 152/70 H 01/30/21 02:54 Pulse Ox 99 01/30/21 02:54 Body Mass Index 22.9 Const: Other: Constitutional Awake and Alert, No apparent distress HEENT: PERRLA Neck Supple, No lymphadenopathy Cardiovascular RRR, No M/R/G, S1 S2, No S3 S4, No pedal edema Respiratory Lungs clear, No respiratory distress Gastrointestinal Non tender, Non-distended, mild epig tendernes Skin No rash Neurological Alert & oriented x3, no weakness in the legs, normal strenght, no numbness Muscular skeleta: Back pain, has some tenderness in lumbar region, no fluctuance Psychological Appropriate affect General: cooperative HENMT: Head: Yes normal to inspection Mouth: Normal oral and palatal mucosa present Eyes: General: appearance normal, both eyes and all related structures Resp: Effort & Inspection: normal respiratory effort Cardio: Rate: regular rate Rhythm: regular rhythm GI: Palpation (GI): Soft to palpation and nontender Back/Spine/Pelvis: Thoracic/Lumbar Spine: lumbar spinal tenderness and straight leg raise positive Skin: General skin exam: no rashes or lesions noted Objective Data Labs CBC & Chem 7: 01/28/21 07:45 01/27/21 01:40 Labs: Laboratory Results - last 24 hr 01/29/21 08:33 Random Vancomycin 11.2 L Microbiology Microbiology Results: Microbiology 01/27/21 01:43 Blood - Venous Blood Culture - Preliminary Prelim: GPC Gram Stain only 01/27/21 01:43 Blood - Venous Blood Culture - Preliminary Prelim: GPC Gram Stain only Procedures Date of Service Date of Service: 01/30/21 Assessment & Plan Assessment and plan (1) Discitis: Status: Acute (2) ESRD (end stage renal disease): Status: Acute Assessment and Plan: 70-year-old male with ESRD, HTN, CHF, HLD who presents emergency department for evaluation of back pain and coffee-ground emesis and admitted with concern of Disckitis and upper GIB 1/Back pain--finding of diskitis on CT and MRI -ID consult recommends post dialysis Vanco and Ceftriaxone for 6 weeks -hold of echo since no bacteremia . Vanco level is 11--give 500 today dialysis as ordered when d/c will arrange abx rx Time Spent With Patient Time: Total time spent is greater than 50% in coordination of care (as documented) at patient's floor/unit and/or counseling patient: Progress Note: Quality Stroke Does the patient have a stroke diagnosis?: No
[2021-01-30] MEDS: Docusate Sodium 100 MG CAPSULE PO ×2 (10:45→19:47)
[2021-01-30] MEDS: Aspirin Enteric Coated 81 MG TABLET.DR PO (10:45)
[2021-01-30] MEDS: Megestrol Acetate 400 MG/10 ML ORAL.SUSP PO (10:45)
[2021-01-30] MEDS: carvediloL 25 MG TABLET PO ×2 (10:45→19:46)
[2021-01-30] MEDS: Sevelamer Carbonate Tablet 800 MG TABLET 1600 MG PO ×2 (10:56→16:26)
--- NOTE | 2021-01-30 11:03 | HO.PM.IMPN ---
Subjective Subjective Date of Service: 01/30/21 Interval History: seen on dialysis today Review of Systems Gen: no fever Resp: no sob, no cough CV: no chest, no MARTINEZ, no leg edema GI: coffee ground emesis outside of hospital, no stool incontience, now with constiapation Neuro: No confusion, stated to be confused earlier, no wealkess in the legs, no saddle anesthesia MSK: Back pain, Physical Exam Vital Signs: Vital Signs: Last Vital Signs Temp 96.9 F 01/30/21 10:57 Pulse 62 01/30/21 10:57 Resp 20 01/30/21 10:57 BP 140/82 H 01/30/21 10:57 Pulse Ox 98 01/30/21 10:57 Body Mass Index 22.9 Const: Other: Constitutional Awake and Alert, No apparent distress HEENT: PERRLA Neck Supple, No lymphadenopathy Cardiovascular RRR, No M/R/G, S1 S2, No S3 S4, No pedal edema Respiratory Lungs clear, No respiratory distress Gastrointestinal Non tender, Non-distended, mild epig tendernes Skin No rash Neurological Alert & oriented x3, no weakness in the legs, normal strenght, no numbness Muscular skeleta: Back pain, has some tenderness in lumbar region, no fluctuance Psychological Appropriate affect Objective Data Current Medications Generic Name Dose Route Start Last Admin Trade Name Dhara PRN Reason Stop Dose Admin Aspirin 81 mg 01/30/21 09:00 01/30/21 10:45 Aspirin Enteric Coated 81 Mg Tablet.Dr PO 81 mg DAILY SAMI Administration Carvedilol 25 mg 01/29/21 09:30 01/30/21 10:45 Carvedilol 25 Mg Tablet PO 25 mg BID SAMI Administration Protocol Docusate Sodium 100 mg 01/28/21 10:30 01/30/21 10:45 Docusate Sodium 100 Mg Capsule PO 100 mg BID SAMI Administration Vancomycin HCl 750 mg/ Sodium 265 mls @ 265 mls/hr 01/30/21 17:00 Chloride IV Q48H SAMI Magnesium Hydroxide 30 ml 01/28/21 10:07 01/29/21 17:24 Milk Of Magnesia 30 Ml Oral.Susp PO 30 ml DAILY PRN Administration Constipation Megestrol Acetate 400 mg 01/29/21 09:30 01/30/21 10:45 Megestrol Acetate 400 Mg/10 Ml Oral.Susp PO 400 mg DAILY SAMI Administration Morphine Sulfate 2 mg 01/27/21 10:30 01/30/21 10:46 Morphine Sulfate 2 Mg/Ml Cartridge IVPUSH 2 mg Q4H PRN Administration Pain, Severe (Pain Scale 7-10) Omeprazole 20 mg 01/28/21 16:30 01/30/21 05:13 Omeprazole 20 Mg Capsule.Dr PO 20 mg BID@0291,1580 SAMI Administration Ondansetron HCl 4 mg 01/27/21 15:46 Ondansetron Hcl 4 Mg/2 Ml Vial IVPUSH Q8H PRN Nausea and Vomiting Pharmacy Consult 1 each 01/27/21 02:56 Consult Rx Vancomycin Dosing MISCELLANE DAILY PRN Consult order Polyethylene Glycol 17 gm 01/28/21 10:07 01/28/21 10:39 Polyethylene Glycol 3350 17 Gm Powd.Pack PO 17 gm DAILY PRN Administration Constipation Polyethylene Glycol 17 gm 01/29/21 09:30 01/30/21 10:45 Polyethylene Glycol 3350 17 Gm Powd.Pack PO 17 gm DAILY SAMI Administration Sevelamer Carbonate 1,600 mg 01/29/21 12:00 01/30/21 10:56 Sevelamer Carbonate Tablet 800 Mg Tablet PO 1,600 mg TIDWM SAMI Administration Sevelamer Carbonate 800 mg 01/29/21 11:46 Sevelamer Carbonate Tablet 800 Mg Tablet PO BID PRN snacks Sodium Chloride 3 ml 01/27/21 16:00 01/30/21 09:34 0.9 % Sodium Chloride Flush 3 Ml Syringe IVFLUSH Not Given QSHIFT [facility] Labs CBC & Chem 7: 01/28/21 07:45 01/27/21 01:40 Microbiology Microbiology Results: Microbiology 01/27/21 01:43 Blood Culture - Preliminary Blood - Venous Prelim: GPC Gram Stain only 01/27/21 01:43 Blood Culture - Preliminary Blood - Venous Prelim: GPC Gram Stain only Assessment and Plan (1) Discitis: Status: Acute (2) ESRD (end stage renal disease): Status: Acute Assessment and Plan: 70-year-old male with ESRD, HTN, CHF, HLD who presents emergency department for evaluation of back pain and coffee-ground emesis and admitted with concern of Disckitis and upper GIB 1/Back pain--finding of diskitis on CT and MRI -ID consult recommends post dialysis Vanco and Ceftriaxone for 6 weeks -Blood cultures GPCC--sensitivity pending -Echo to rule out endocarditis Gram positive cocci bacteremia--Vanco 750 post dialysis and Ceftriaxone 2 gram post dialysis 2. ? GIB--H/H stable, no further episode of coffee ground emesis. PPI, GI recommend no intervention--probably was not gib 3. Diabetes--Not on meds 4. HTN--continue home meds 5. HLD--Statin 6. CHF--euvolemic 7. ESR--consult Nephrology for dialysis management, TTS 8/ constipation --bowel regimen, Miralax 8. DVT prophylaxis--device d/t GI bleed PT eval tomorrow if persistent pain and not able to walk Quality Stroke Does the patient have a stroke diagnosis?: No VTE Prior VTE?: No VTE Risk Level:: Medical - moderate - high VTE Device Contraindication: N/A - Device Ordered VTE Drug Contraindication: Treatment Not Tolerated
--- NOTE | 2021-01-30 14:19 | MHC.CM.PN ---
CM RECEIVED MESSAGE FROM JAMES AT [facility] REGARDING PT, CM ATTEMPTED TO REACH JAMES AT 2:18PM, NO ANSWER, MESSAGE LEFT W/CM CALLBACK INFO. PER OSPITALIST NO PLAN FOR D/C TODAY.
[2021-01-30] MEDS: 0.9 % Sodium Chloride Flush 3 ML SYRINGE IVFLUSH (16:25)
[2021-01-30] MEDS: cefTRIAXone sodium 2 GM in 0.9 % Sodium Chloride 50 ML IV (16:25)
[2021-01-30 16:49] LABS: Vancomycin Random 10.6 mcg/mL (15-20)
[2021-01-30] MEDS: vancomycin HCL 750 MG in 0.9 % Sodium Chloride 250 ML 265 MG IV (18:30)
[2021-01-31] VITALS (10 sets, daily range): BP systolic 121–162; BP diastolic 52–64; PULSE 58–100; RESP 16–18; TEMP 36.2–36.6; O2SAT 98–100; BMI 22.8
[2021-01-31] MEDS: 0.9 % Sodium Chloride Flush 3 ML SYRINGE IVFLUSH ×3 (00:39→16:31)
[2021-01-31] MEDS: Morphine Sulfate 2 MG/ML CARTRIDGE IVPUSH ×2 (03:13→20:32)
[2021-01-31] MEDS: Omeprazole 20 MG CAPSULE.DR PO ×2 (06:17→16:31)
[2021-01-31] MEDS: Docusate Sodium 100 MG CAPSULE PO ×2 (07:33→20:32)
[2021-01-31] MEDS: Sevelamer Carbonate Tablet 800 MG TABLET 1600 MG PO ×3 (07:33→16:31)
[2021-01-31] MEDS: Aspirin Enteric Coated 81 MG TABLET.DR PO (07:34)
[2021-01-31] MEDS: Megestrol Acetate 400 MG/10 ML ORAL.SUSP PO (07:35)
[2021-01-31] MEDS: carvediloL 25 MG TABLET PO ×2 (07:35→20:32)
--- NOTE | 2021-01-31 07:53 | PM.PNNEP ---
Subjective Subjective Date of Service: 01/31/21 Principal diagnosis: ESRD Interval history: seen on dialysis today Physical Exam Vital Signs: Vital Signs: Last Vital Signs Temp 97.8 F 01/31/21 07:16 Pulse 58 01/31/21 07:16 Resp 18 01/31/21 07:16 BP 143/53 H 01/31/21 07:16 Pulse Ox 98 01/31/21 07:16 Body Mass Index 22.8 Const: Other: Constitutional Awake and Alert, No apparent distress HEENT: PERRLA Neck Supple, No lymphadenopathy Cardiovascular RRR, No M/R/G, S1 S2, No S3 S4, No pedal edema Respiratory Lungs clear, No respiratory distress Gastrointestinal Non tender, Non-distended, mild epig tendernes Skin No rash Neurological Alert & oriented x3, no weakness in the legs, normal strenght, no numbness Muscular skeleta: Back pain, has some tenderness in lumbar region, no fluctuance Psychological Appropriate affect General: cooperative HENMT: Head: Yes normal to inspection Mouth: Normal oral and palatal mucosa present Eyes: General: appearance normal, both eyes and all related structures Resp: Effort & Inspection: normal respiratory effort Cardio: Rate: regular rate Rhythm: regular rhythm GI: Palpation (GI): Soft to palpation and nontender Back/Spine/Pelvis: Thoracic/Lumbar Spine: lumbar spinal tenderness and straight leg raise positive Skin: General skin exam: no rashes or lesions noted Objective Data Labs CBC & Chem 7: 01/28/21 07:45 01/27/21 01:40 Labs: Laboratory Results - last 24 hr 01/30/21 16:09 Random Vancomycin 10.6 L Microbiology Microbiology Results: Microbiology 01/27/21 01:43 Blood - Venous Blood Culture - Preliminary Prelim: GPC Gram Stain only 01/27/21 01:43 Blood - Venous Blood Culture - Preliminary Prelim: GPC Gram Stain only Procedures Date of Service Date of Service: 01/31/21 Assessment & Plan Assessment and plan (1) Discitis: Status: Acute (2) ESRD (end stage renal disease): Status: Acute Assessment and Plan: 70-year-old male with ESRD, HTN, CHF, HLD who presents emergency department for evaluation of back pain and coffee-ground emesis and admitted with concern of Disckitis and upper GIB 1/Back pain--finding of diskitis on CT and MRI -ID consult recommends post dialysis Vanco and Ceftriaxone for 6 weeks -Blood cultures GPCC--sensitivity pending -Echo to rule out endocarditis Gram positive cocci bacteremia--Vanco 750 post dialysis and Ceftriaxone 2 gram post dialysis dialysis yesterday well tolerated next treatment in am will arrange OP abx at dialysis on d/c Time Spent With Patient Time: Total time spent is greater than 50% in coordination of care (as documented) at patient's floor/unit and/or counseling patient: Progress Note: Quality Stroke Does the patient have a stroke diagnosis?: No
--- NOTE | 2021-01-31 09:35 | HO.PM.IMPN ---
Subjective Subjective Date of Service: 01/31/21 Interval History: Back pain is better, no fever, ambulating without difficulty Review of Systems Gen: no fever Resp: no sob, no cough CV: no chest, no MARTINEZ, no leg edema GI: no n/v Neuro: No confusion, stated to be confused earlier, no wealkess in the legs, no saddle anesthesia MSK: Back pain, Physical Exam Vital Signs: Vital Signs: Last Vital Signs Temp 97.8 F 01/31/21 07:16 Pulse 58 01/31/21 07:16 Resp 18 01/31/21 07:16 BP 143/53 H 01/31/21 07:16 Pulse Ox 98 01/31/21 07:16 Body Mass Index 22.8 Const: Other: Constitutional Awake and Alert, No apparent distress HEENT: PERRLA Neck Supple, No lymphadenopathy Cardiovascular RRR, No M/R/G, S1 S2, No S3 S4, No pedal edema Respiratory Lungs clear, No respiratory distress Gastrointestinal Non tender, Non-distended, mild epig tendernes Skin No rash Neurological Alert & oriented x3, no weakness in the legs, normal strenght, no numbness Muscular skeleta: Back pain, has some tenderness in lumbar region, no fluctuance Psychological Appropriate affect Objective Data Current Medications Generic Name Dose Route Start Last Admin Trade Name Dhara PRN Reason Stop Dose Admin Aspirin 81 mg 01/30/21 09:00 01/31/21 07:34 Aspirin Enteric Coated 81 Mg Tablet. PO 81 mg DAILY SAMI Administration Carvedilol 25 mg 01/29/21 09:30 01/31/21 07:35 Carvedilol 25 Mg Tablet PO 25 mg BID SAMI Administration Protocol Docusate Sodium 100 mg 01/28/21 10:30 01/31/21 07:33 Docusate Sodium 100 Mg Capsule PO 100 mg BID SAMI Administration Vancomycin HCl 750 mg/ Sodium 265 mls @ 265 mls/hr 01/30/21 17:00 01/30/21 19:48 Chloride IV Infused TuThSa@1700 SAMI Infusion Ceftriaxone Sodium 2 gm/ 50 mls @ 100 mls/hr 01/30/21 16:00 01/30/21 17:21 Sodium Chloride IV Infused TUTHSA@1600 SAMI Infusion Magnesium Hydroxide 30 ml 01/28/21 10:07 01/29/21 17:24 Milk Of Magnesia 30 Ml Oral.Susp PO 30 ml DAILY PRN Administration Constipation Megestrol Acetate 400 mg 01/29/21 09:30 01/31/21 07:35 Megestrol Acetate 400 Mg/10 Ml Oral.Susp PO 400 mg DAILY SAMI Administration Morphine Sulfate 2 mg 01/27/21 10:30 01/31/21 03:13 Morphine Sulfate 2 Mg/Ml Cartridge IVPUSH 2 mg Q4H PRN Administration Pain, Severe (Pain Scale 7-10) Omeprazole 20 mg 01/28/21 16:30 01/31/21 06:17 Omeprazole 20 Mg Capsule. PO 20 mg BID@7126,1456 SAMI Administration Ondansetron HCl 4 mg 01/27/21 15:46 Ondansetron Hcl 4 Mg/2 Ml Vial IVPUSH Q8H PRN Nausea and Vomiting Pharmacy Consult 1 each 01/27/21 02:56 Consult Rx Vancomycin Dosing MISCELLANE DAILY PRN Consult order Polyethylene Glycol 17 gm 01/28/21 10:07 01/28/21 10:39 Polyethylene Glycol 3350 17 Gm Powd.Pack PO 17 gm DAILY PRN Administration Constipation Polyethylene Glycol 17 gm 01/29/21 09:30 01/31/21 07:33 Polyethylene Glycol 3350 17 Gm Powd.Pack PO 17 gm DAILY SAMI Administration Sevelamer Carbonate 1,600 mg 01/29/21 12:00 01/31/21 07:33 Sevelamer Carbonate Tablet 800 Mg Tablet PO 1,600 mg TIDWM SAMI Administration Sevelamer Carbonate 800 mg 01/29/21 11:46 Sevelamer Carbonate Tablet 800 Mg Tablet PO BID PRN snacks Sodium Chloride 3 ml 01/27/21 16:00 01/31/21 07:35 0.9 % Sodium Chloride Flush 3 Ml Syringe IVFLUSH 3 ml QSHIFT SAMI Administration Labs CBC & Chem 7: 01/28/21 07:45 01/27/21 01:40 Labs: Laboratory Results - last 24 hr 01/30/21 16:09 Random Vancomycin 10.6 L Microbiology Microbiology Results: Microbiology 01/27/21 01:43 Blood Culture - Preliminary Blood - Venous Prelim: GPC Gram Stain only 01/27/21 01:43 Blood Culture - Preliminary Blood - Venous Prelim: GPC Gram Stain only Assessment and Plan (1) Discitis: Status: Acute (2) ESRD (end stage renal disease): Status: Acute Assessment and Plan: 70-year-old male with ESRD, HTN, CHF, HLD who presents emergency department for evaluation of back pain and coffee-ground emesis and admitted with concern of Disckitis and upper GIB 1/Back pain--finding of diskitis on CT and MRI -ID consult recommends post dialysis Vanco and Ceftriaxone for 6 weeks -Blood cultures GPCC--sensitivity pending -Echo to rule out endocarditis Gram positive cocci bacteremia--Vanco 750 post dialysis and Ceftriaxone 2 gram post dialysis 2. ? GIB--H/H stable, no further episode of coffee ground emesis. PPI, GI recommend no intervention--probably was not gib 3. Diabetes--Not on meds 4. HTN--continue home meds 5. HLD--Statin 6. CHF--euvolemic 7. ESR--consult Nephrology for dialysis management, TTS 8/ constipation --bowel regimen, Miralax 8. DVT prophylaxis--device d/t GI bleed PT eval and likely home later today Quality Stroke Does the patient have a stroke diagnosis?: No VTE Prior VTE?: No VTE Risk Level:: Medical - moderate - high VTE Device Contraindication: N/A - Device Ordered VTE Drug Contraindication: Treatment Not Tolerated
[2021-01-31 10:37] LABS: Hemoglobin 10.8 g/dl (14.0-18.0); Mean Corpuscular HGB Conc 32.7 g/dl (31.0-36.0); Mean Corpuscular Hemoglobin 28.4 pg (27.0-33.0); Mean Corpuscular Volume 86.8 fL (80-98); Mean Platelet Volume 8.9 fL (9.4-12.4); Platelet Count 354 X10*3/uL (160-400); White Blood Count 5.4 X10*3/uL (4.8-10.8)
--- NOTE | 2021-01-31 11:45 | MHC.CM.PN ---
[facility] CONTACTED [facility]S DIALYSIS [facility] TO LET THEM KNOW PT WILL D/C ON IV ABX, PER CHARGE NURSE STEPHANIE WHO ORIGINALLY SAID THEY DO NOT CARRY AND CAN NOT ORDER IV CEFTRIAXONE HOWEVER [facility] RECEIVED A CALL BACK FROM STEPHANIE AT 11:44AM AND REPORTS THEY MAY BE ABLE TO ORDER IT AND BORROW DOSES UNTIL IT COMES IN, CM AWAITING CALL BACK FROM [facility]. CM TO CONT TO FOLLOW. D/C PLAN: HOME W/[facility] FOR HOME PT, [facility] TO ARRANGE TRANSPORT [facility]: [phone] --SAT
--- NOTE | 2021-01-31 12:28 | MHC.CM.PN ---
CM RECEIVED A CALL BACK FROM STEPHANIE AT [facility] AT 12:20PM AND REPORTED THEY ACTUALLY CAN ORDER IV CEFTRIAXONE FOR PT HOWEVER THEY ARE UNABLE TO GET IT FOR TOMORROW'S DOSING BUT CAN HAVE IT FOR Friday02/03/21, HOSPITALIST AWARE AND CURRENT PLAN IS TO D/C AFTER DIALYSIS TOMORROW 02/01/21.
[2021-02-01] MEDS: 0.9 % Sodium Chloride Flush 3 ML SYRINGE IVFLUSH ×3 (01:10→15:50)
[2021-02-01] MEDS: Morphine Sulfate 2 MG/ML CARTRIDGE IVPUSH ×2 (02:58→08:11)
[2021-02-01 04:00] VITALS: RESP 16
[2021-02-01] MEDS: Omeprazole 20 MG CAPSULE.DR PO (06:11)
[2021-02-01 07:39] VITALS: BP 137/51; PULSE 64; RESP 17; TEMP 36.3; O2SAT 100
--- NOTE | 2021-02-01 07:41 | W.PM.DNNEP ---
Subjective Subjective Principal diagnosis: ESRD This patient was seen during dialysis. Interval history: Back pain is better, no fever, ambulating without difficulty Physical Exam Vital Signs: Vital Signs: Last Vital Signs Temp 97.3 F 02/01/21 07:39 Pulse 64 02/01/21 07:39 Resp 17 02/01/21 07:39 BP 137/51 L 02/01/21 07:39 Pulse Ox 100 02/01/21 07:39 Body Mass Index 22.8 Const: Other: Constitutional Awake and Alert, No apparent distress HEENT: PERRLA Neck Supple, No lymphadenopathy Cardiovascular RRR, No M/R/G, S1 S2, No S3 S4, No pedal edema Respiratory Lungs clear, No respiratory distress Gastrointestinal Non tender, Non-distended, mild epig tendernes Skin No rash Neurological Alert & oriented x3, no weakness in the legs, normal strenght, no numbness Muscular skeleta: Back pain, has some tenderness in lumbar region, no fluctuance Psychological Appropriate affect General: cooperative HENMT: Head: Yes normal to inspection Mouth: Normal oral and palatal mucosa present Eyes: General: appearance normal, both eyes and all related structures Resp: Effort & Inspection: normal respiratory effort Cardio: Rate: regular rate Rhythm: regular rhythm GI: Palpation (GI): Soft to palpation and nontender Back/Spine/Pelvis: Thoracic/Lumbar Spine: lumbar spinal tenderness and straight leg raise positive Skin: General skin exam: no rashes or lesions noted Assessment & Plan Assessment and plan (1) Discitis: Status: Acute (2) ESRD (end stage renal disease): Status: Acute Assessment and Plan: 70-year-old male with ESRD, HTN, CHF, HLD who presents emergency department for evaluation of back pain and coffee-ground emesis and admitted with concern of Disckitis and upper GIB 1/Back pain--finding of diskitis on CT and MRI -ID consult recommends post dialysis Vanco and Ceftriaxone for 6 weeks -Blood cultures GPCC--sensitivity pending -Echo to rule out endocarditis Gram positive cocci bacteremia--Vanco 750 post dialysis and Ceftriaxone 2 gram post dialysis TTS HD PT eval and likely home later today Time Spent With Patient Time: Total time spent is greater than 50% in coordination of care (as documented) at patient's floor/unit and/or counseling patient: Procedures Date of Service Date of Service: 02/01/21
[2021-02-01 07:44] LABS: Glucose, Whole Blood 87 mg/dL (60-115)
[2021-02-01] MEDS: Sevelamer Carbonate Tablet 800 MG TABLET 1600 MG PO ×2 (07:58→13:31)
--- NOTE | 2021-02-01 09:05 | HO.PM.IMPN ---
Subjective Subjective Date of Service: 02/01/21 Interval History: Back pain is better, no fever, ambulating without difficulty Review of Systems Gen: no fever Resp: no sob, no cough CV: no chest, no MARTINEZ, no leg edema GI: no n/v Neuro: No confusion, stated to be confused earlier, no wealkess in the legs, no saddle anesthesia MSK: Back pain, Physical Exam Vital Signs: Vital Signs: Last Vital Signs Temp 97.3 F 02/01/21 07:39 Pulse 64 02/01/21 07:39 Resp 17 02/01/21 07:39 BP 137/51 L 02/01/21 07:39 Pulse Ox 100 02/01/21 07:39 Body Mass Index 22.8 Const: Other: Constitutional Awake and Alert, No apparent distress HEENT: PERRLA Neck Supple, No lymphadenopathy Cardiovascular RRR, No M/R/G, S1 S2, No S3 S4, No pedal edema Respiratory Lungs clear, No respiratory distress Gastrointestinal Non tender, Non-distended, mild epig tendernes Skin No rash Neurological Alert & oriented x3, no weakness in the legs, normal strenght, no numbness Muscular skeleta: Back pain, has some tenderness in lumbar region, no fluctuance Psychological Appropriate affect Objective Data Current Medications Generic Name Dose Route Start Last Admin Trade Name Dhara PRN Reason Stop Dose Admin Aspirin 81 mg 01/30/21 09:00 01/31/21 07:34 Aspirin Enteric Coated 81 Mg Tablet. PO 81 mg DAILY SAMI Administration Carvedilol 25 mg 01/29/21 09:30 01/31/21 20:32 Carvedilol 25 Mg Tablet PO 25 mg BID SAMI Administration Protocol Docusate Sodium 100 mg 01/28/21 10:30 01/31/21 20:32 Docusate Sodium 100 Mg Capsule PO 100 mg BID SAMI Administration Vancomycin HCl 750 mg/ Sodium 265 mls @ 265 mls/hr 01/30/21 17:00 01/30/21 19:48 Chloride IV Infused TuThSa@1700 SAMI Infusion Ceftriaxone Sodium 2 gm/ 50 mls @ 100 mls/hr 01/30/21 16:00 01/30/21 17:21 Sodium Chloride IV Infused TUTHSA@1600 SAMI Infusion Magnesium Hydroxide 30 ml 01/28/21 10:07 01/29/21 17:24 Milk Of Magnesia 30 Ml Oral.Susp PO 30 ml DAILY PRN Administration Constipation Megestrol Acetate 400 mg 01/29/21 09:30 01/31/21 07:35 Megestrol Acetate 400 Mg/10 Ml Oral.Susp PO 400 mg DAILY SAMI Administration Morphine Sulfate 2 mg 01/27/21 10:30 02/01/21 08:11 Morphine Sulfate 2 Mg/Ml Cartridge IVPUSH 2 mg Q4H PRN Administration Pain, Severe (Pain Scale 7-10) Omeprazole 20 mg 01/28/21 16:30 02/01/21 06:11 Omeprazole 20 Mg Capsule. PO 20 mg BID@5670,3142 SAMI Administration Ondansetron HCl 4 mg 01/27/21 15:46 Ondansetron Hcl 4 Mg/2 Ml Vial IVPUSH Q8H PRN Nausea and Vomiting Pharmacy Consult 1 each 01/27/21 02:56 Consult Rx Vancomycin Dosing MISCELLANE DAILY PRN Consult order Polyethylene Glycol 17 gm 01/28/21 10:07 01/28/21 10:39 Polyethylene Glycol 3350 17 Gm Powd.Pack PO 17 gm DAILY PRN Administration Constipation Polyethylene Glycol 17 gm 01/29/21 09:30 01/31/21 07:33 Polyethylene Glycol 3350 17 Gm Powd.Pack PO 17 gm DAILY SAMI Administration Sevelamer Carbonate 1,600 mg 01/29/21 12:00 02/01/21 07:58 Sevelamer Carbonate Tablet 800 Mg Tablet PO 1,600 mg TIDWM SAMI Administration Sevelamer Carbonate 800 mg 01/29/21 11:46 Sevelamer Carbonate Tablet 800 Mg Tablet PO BID PRN snacks Sodium Chloride 3 ml 01/27/21 16:00 02/01/21 07:58 0.9 % Sodium Chloride Flush 3 Ml Syringe IVFLUSH 3 ml QSHIFT SAMI Administration Labs CBC & Chem 7: 01/31/21 10:29 01/27/21 01:40 Labs: Laboratory Results - last 24 hr 01/31/21 02/01/21 10:29 07:38 MCV 86.8 MCH 28.4 MCHC 32.7 RDW 16.0 Plt Count 354 MPV 8.9 L Absolute Nucleated RBC 0.000 Nucleated RBC % (auto) 0.0 POC Glucose 87 Microbiology Microbiology Results: Microbiology 01/27/21 01:43 Blood Culture - Preliminary Blood - Venous Gram positive cocci 01/27/21 01:43 Blood Culture - Preliminary Blood - Venous Gram positive cocci Assessment and Plan (1) Discitis: Status: Acute (2) ESRD (end stage renal disease): Status: Acute Assessment and Plan: 70-year-old male with ESRD, HTN, CHF, HLD who presents emergency department for evaluation of back pain and coffee-ground emesis and admitted with concern of Disckitis and upper GIB 1/Back pain--finding of diskitis on CT and MRI -ID consult recommends post dialysis Vanco and Ceftriaxone for 6 weeks -Blood cultures GPCC--sensitivity still pending -Echo calcified valve, vegetation cannot be ruled ot Gram positive cocci bacteremia--Vanco 750 post dialysis and Ceftriaxone 2 gram post dialysis 2. ? GIB--H/H stable, no further episode of coffee ground emesis. PPI, GI recommend no intervention--probably was not gib 3. Diabetes--Not on meds 4. HTN--continue home meds 5. HLD--Statin 6. CHF--euvolemic 7. ESR--consult Nephrology for dialysis management, TTS 8/ constipation --bowel regimen, Miralax 8. DVT prophylaxis--device d/t GI bleed PT recommends home PT Quality Stroke Does the patient have a stroke diagnosis?: No VTE Prior VTE?: No VTE Risk Level:: Medical - moderate - high VTE Device Contraindication: N/A - Device Ordered VTE Drug Contraindication: Treatment Not Tolerated
[2021-02-01 13:22] VITALS: BP 149/75; PULSE 62
[2021-02-01] MEDS: carvediloL 25 MG TABLET PO (13:30)
[2021-02-01 15:28] VITALS: BP 112/52; PULSE 66; RESP 16; TEMP 36.6; O2SAT 100
[2021-02-01 15:30] LABS: Vancomycin Random 13.1 mcg/mL (15-20)
[2021-02-01] MEDS: cefTRIAXone sodium 2 GM in 0.9 % Sodium Chloride 50 ML IV (15:50)
--- NOTE | 2021-02-01 16:13 | MHC.CM.PN ---
PT DISCHARGING TODAY HOME W/RESUMP OF [facility] & HD AT [facility] W/IV CEFTRIAXONE 2GM X 6WKS, PT HAS DECLINED HOME VNA/PT, PT WILL CONTACT FAMILY FOR TRANSPORT
== END 2021-02-01 16:44 | disposition home or self-care (01) | DRG 551 ==
LOC: HO.ED 07:53 → HO.IMC 10:50 → HO.S3 11:48
PROVIDERS: Emergency Medicine; Admitting Provider Internal Medicine; Emergency Provider Emergency Medicine Emergency Medical Services; PCP Family Medicine; Visit Provider Internal Medicine
DX: M46.47 Discitis, unspecified, lumbosacral region (principal); N18.6 End stage renal disease; I13.2 Hypertensive heart and chronic kidney disease with heart failure and with stage 5 chronic kidney disease, or end stage renal disease; R78.81 Bacteremia; E78.5 Hyperlipidemia, unspecified; K21.9 Gastro-esophageal reflux disease without esophagitis; I16.0 Hypertensive urgency; K59.00 Constipation, unspecified; I50.9 Heart failure, unspecified; E11.22 Type 2 diabetes mellitus with diabetic chronic kidney disease; Z99.2 Dependence on renal dialysis; Z20.822 Contact with and (suspected) exposure to COVID-19; Z87.891 Personal history of nicotine dependence; Z79.82 Long term (current) use of aspirin; Z79.899 Other long term (current) drug therapy
CPT/HCPCS: 0241U; 36415; 70450; 71275; 72148; 74174; 80053; 80202; 82271; 82947; 83605; 83690; 83735; 84484; 85025; 85027; 85652; 86140; 87040; 87076; 87185; 87205; 90999; 93005; 93306; 96361; 96365; 96375; 96376; 97162; 99285; 99291; J0696; J1170; J2270; J2354; J2405; J2543; J3370

== ENCOUNTER 2021-02-01 19:12 | Observation (INO) | payer MEDICARE, MEDICAID, SELFPAY ==
[2021-02-01 19:26] VITALS: BP 154/82; PULSE 63; RESP 18; TEMP 36.3; O2SAT 100; BMI 22.8
[2021-02-01 22:01] VITALS: BP 124/61; PULSE 66; RESP 12; TEMP 37.3; O2SAT 100
--- NOTE | 2021-02-01 22:51 | ED.BACK ---
HPI - Back Pain/Injury General Chief Complaint: Back Pain/Injury Stated Complaint: back pain x 1 week Time Seen by Provider: 02/01/21 21:08 Source: patient Mode of arrival: ambulatory History of Present Illness HPI Narrative: 70-year-old male with history of hypertension, diabetes, ESRD (dialysis-Friday, , Friday) who presents shortly after being discharged earlier in the day with excruciating lower back pain that patient states does not prevent him from walking, but he is completely uncomfortable when lying in bed. He denies any bowel or bladder dysfunction to include no evidence of saddle anesthesia or bilateral lower extremity numbness, tingling, weakness but states he ?walks like frankenstein . Otherwise, he denies any sore throat, cough, shortness of breath, chest pain/palpitations, GI symptoms. Related Data Home Medications Medication Instructions Recorded Confirmed aspirin 81 mg tablet,delayed 81 mg PO DAILY 03/30/20 01/27/21 release megestrol 400 mg/10 mL (40 mg/mL) 400 mg PO DAILY 03/30/20 01/27/21 oral suspension polyethylene glycol 3350 17 gram 17 g PO DAILY 03/30/20 01/27/21 oral powder packet (Miralax) rosuvastatin 5 mg tablet (Crestor) 5 mg PO DAILY 03/30/20 01/27/21 sevelamer carbonate 800 mg tablet 1,600 mg PO TIDWM 03/30/20 01/29/21 (Renvela) ammonium lactate 12 % topical cream 1 appl TOPICAL BID PRN 01/29/21 01/29/21 ondansetron HCl 4 mg tablet 1 tab PO BID PRN 01/29/21 01/29/21 sevelamer carbonate 800 mg tablet 800 mg PO BID PRN 01/29/21 01/29/21 Previous Rx's Medication Instructions Recorded omeprazole 40 mg capsule,delayed 40 mg PO BID@0630,1630 #60 cap 04/02/20 release ceftriaxone 2 gram solution for 2 g IV TUTHSA@1600 #12 ea 02/01/21 injection oxycodone 5 mg tablet 5 mg PO Q6H PRN #14 tab 02/01/21 Allergies Allergy/AdvReac Type Severity Reaction Status Date / Time metformin [METFORMIN] Allergy Intermediate IT MESSES Verified 02/01/21 19:25 ME UP Jnhpwnn-Att-Stc Reductase Allergy Intermediate NAUSEA Verified 02/01/21 19:25 Inhibitor [UOLUTZN-IXB-BNC REDUCTASE INHIBITOR] cephalexin [From KEFLEX] Allergy Unknown UNSPECIFIED Verified 02/01/21 19:25 IT MESSES ME UP any form of statin Allergy Unknown Unknown Uncoded 02/01/21 19:25 glucophage Allergy Unknown Diarrhea Uncoded 02/01/21 19:25 Review of Systems Review of Systems: Pertinent positives and negatives as stated in HPI 10 point review systems otherwise negative. PMFSH Past Medical History Source: nursing notes reviewed Medical History Amputation of left great toe CHF (congestive heart failure) Diabetes mellitus ESRD (end stage renal disease) GERD (gastroesophageal reflux disease) HTN (hypertension) Hyperlipidemia Presence of arteriovenous dialysis shunt Surgical History H/O hernia repair H/O shoulder surgery Social History Social History Household Members: None Housing: Apartment Do you presently have visiting nurse or other home services: Yes Alcohol intake: current Alcohol intake frequency: 0-2 drinks per day Patient Tobacco Use Status: Former Tobacco user Tobacco use type: Cigarette Second Hand Smoke Exposure: No Advance Directives: No Advance Directives Information Provided: No service: No Current occupational status: retired Physical Exam Vital Signs: Vital Signs: Last Vital Signs Temp 98.2 F 02/01/21 23:50 Pulse 63 02/01/21 23:50 Resp 18 02/01/21 23:50 BP 139/50 L 02/01/21 23:50 Pulse Ox 99 02/01/21 23:50 Body Mass Index 22.8 VITAL SIGNS: Reviewed. GENERAL: Well developed, well nourished, in no acute distress. HEAD: Normocephalic/atraumatic EYES: PERRLA, EOMI LUNGS: Normal breath sounds. No adventitious sounds or accessory muscle use. SpO2<99> CARDIOVASCULAR: Regular rate and rhythm without noted murmurs, no JVD or lower extremity edema. ABDOMEN: Soft, non-tender, non-distended with bowel sounds. RIGHT UPPER EXTREMITY: AV fistula with intact bruit and thrill, right hand is warm with good capillary refill SKIN: Inspection of the skin reveals no rashes NEUROLOGIC: Alert and oriented x 4. Strength and sensation to light touch were grossly intact x 4. Course Course Course Narrative: 70-year-old male with history and clinical presentation consistent with recent diagnosis of diskitis and currently on antibiotics with back pain secondary to this diagnosis that is unable to be managed at home. Basic labs were again obtained as well as COVID screening and review of these results are without acute findings. This case was discussed further with the inpatient hospitalist and the patient was admitted for intractable back pain secondary to diskitis. MDM - Back Pain/Injury Lab Data Result diagrams: 02/01/21 23:01 02/01/21 23:01 Labs: Lab Results 02/01/21 02/01/21 Range/Units 23:01 23:01 WBC 6.5 (4.8-10.8) X10*3/uL RBC 3.85 L (4.60-5.80) X10*6/uL Hgb 11.0 L (14.0-18.0) g/dl Hct 32.9 L (42-52) % MCV 85.5 (80-98) fL MCH 28.6 (27.0-33.0) pg MCHC 33.4 (31.0-36.0) g/dl RDW 15.9 (11.0-16.0) % Plt Count 346 (160-400) X10*3/uL MPV 8.4 L (9.4-12.4) fL Immature Gran % (Auto) 0.5 H (0.0-0.4) % Neut % (Auto) 78.6 H (45-73) % Lymph % (Auto) 9.7 L (20-40) % [place] % (Auto) 10.7 (2-11) % Eos % (Auto) 0.2 (0-4) % Baso % (Auto) 0.3 (0-2) % Lymph # (Auto) 0.6 L (1.2-4.9) X10*3/uL [place] # (Auto) 0.7 (0.1-1.2) X10*3/uL Eos # (Auto) 0.0 (0.0-0.4) X10*3/uL Baso # (Auto) 0.0 (0.0-0.2) X10*3/uL Abs Immat Gran (auto) 0.03 (0.00-0.03) X10*3/uL Absolute Neuts (auto) 5.1 (2.0-8.3) X10*3/uL Absolute Nucleated RBC 0.000 (0.0-0.012) X10*3/uL Nucleated RBC % (auto) 0.0 (0.0-0.2) /100WBC Sodium 132 L (135-145) mmol/L Potassium 5.4 H D (3.3-5.1) mmol/L Chloride 97 (96-108) mmol/L Carbon Dioxide 20 L (22-29) mmol/L Anion Gap 20 (12-20) BUN 37 H (9-16) mg/dL Creatinine 5.74 H* (0.5-1.4) mg/dL Estim Creat Clear Calc 12.0 Estimated GFR 10 Random Glucose 143 H (60-115) mg/dL Calcium 8.9 D (8.4-10.2) mg/dL Total Bilirubin 0.4 (0.0-1.0) mg/dL AST 26 (5-37) U/L ALT 15 (0-40) U/L Alkaline Phosphatase 166 H D (39-117) U/L Total Protein 7.0 (6.5-8.0) g/dL Albumin 3.6 (3.5-5.0) g/dL Discharge Plan Discharge Clinical Impression: Discitis, Intractable back pain Patient Disposition: Admitted As Inpatient
[2021-02-01 23:05] LABS: Basophils Percent Auto 0.3 % (0-2); Eosinophils Percent Auto 0.2 % (0-4); Hematocrit 32.9 % (42-52); Imm Gran Abs Auto 0.03 X10*3/uL (0.00-0.03); Imm Gran Pct Auto 0.5 % (0.0-0.4); Lymphocytes Absolute Auto 0.6 X10*3/uL (1.2-4.9); Lymphocytes Percent Auto 9.7 % (20-40); MANUAL DIFF FLAG NO; Mean Corpuscular HGB Conc 33.4 g/dl (31.0-36.0); Mean Corpuscular Hemoglobin 28.6 pg (27.0-33.0); Mean Corpuscular Volume 85.5 fL (80-98); Mean Platelet Volume 8.4 fL (9.4-12.4); Monocytes Absolute Auto 0.7 X10*3/uL (0.1-1.2); Monocytes Percent Auto 10.7 % (2-11); Neutrophils Absolute Auto 5.1 X10*3/uL (2.0-8.3); Neutrophils Percent Auto 78.6 % (45-73); Platelet Count 346 X10*3/uL (160-400); Red Blood Count 3.85 X10*6/uL (4.60-5.80); Red Cell Distribution Width 15.9 % (11.0-16.0); White Blood Count 6.5 X10*3/uL (4.8-10.8)
[2021-02-01 23:41] LABS: Alanine Aminotransferase 15 U/L (0-40); Albumin Level 3.6 g/dL (3.5-5.0); Alkaline Phosphatase 166 U/L (39-117); Anion Gap 20 (12-20); Aspartate Amino Transferase 26 U/L (5-37); Bilirubin Total 0.4 mg/dL (0.0-1.0); Blood Urea Nitrogen 37 mg/dL (9-16); Calcium 8.9 mg/dL (8.4-10.2); Carbon Dioxide 20 mmol/L (22-29); Chloride 97 mmol/L (96-108); Estimated Glomerular Filt Rate 10; Glucose Random 143 mg/dL (60-115); Potassium 5.4 mmol/L (3.3-5.1); Sodium 132 mmol/L (135-145)
[2021-02-01 23:50] VITALS: BP 139/50; PULSE 63; RESP 18; TEMP 36.8; O2SAT 99
[2021-02-02] VITALS (9 sets, daily range): BP systolic 115–167; BP diastolic 51–80; PULSE 62–66; RESP 16–20; TEMP 36.4–37; O2SAT 99–100; BMI 22.7
[2021-02-02 02:32] LABS: COVID-19 Test Negative (Negative)
--- NOTE | 2021-02-02 02:35 | PC.NURSE ---
pt resting in bed eyes closed, skin pwd, respirations even unlabored. awaiting bed assignment. vss, given po fluids and offered to help reposition in bed for comfort, pt states hes fine and offers no complaints at this time.
--- NOTE | 2021-02-02 05:07 | PC.NURSE ---
NEW ADMISSION TO [facility]E ADMITTED FROM ED AND NOTED TO HAVE NO IV ACCESS. PATIENT WAS JUST DISCHARGED PREVIOUS DAY AND IV SITE WAS LEFT IJ. PATIENT HAS AV FISTULA TO RIGHT UPPER ARM. HOSPITALIST ON DUTY ALERTED AND OKAY TO HAVE NO IV ACCESS AT THIS TIME. PATIENT ALSO ASKED TO WEAR SEQUENTIAL STOCKINGS BILAT VERSUS HEPARIN SC AND ALSO APPROVED AND ORDERED COMPRESSION STOCKINGS
--- NOTE | 2021-02-02 06:02 | PM.IMHP ---
History of Present Illness Date of Service: 02/02/21 Chief Complaint: Back pain This is a 70-year-old male with will recently diagnosed diskitis, ESRD on dialysis, hypertension, CHF, who presents to the hospital 1 hour after being discharged for intractable back pain. Patient was discharged yesterday after being managed for diskitis, and Gram-positive bacteremia was sent home on antibiotics post every dialysis session returns stating that he could not take the pain in his back. He reports that he did not get a chance to fill his pain medications and he will not be able to fill it up now that it is after hours. Patient is complaining of significant 8/10 pain, with difficulty ambulating due to the pain. Patient reports that he may have not had the right bed and therefore he just could not take the pain and came back to the hospital. He has no acute changes to his health since being discharged and returning 1 hour later. He also feels that he may have gone home too early. Vitals on arrival reviewed unremarkable Labs are significant for WBC count of 6.5, hemoglobin of 11.0, sodium of 132, potassium 5.4, BUN of 37, creatinine of 5.74, otherwise unremarkable Patient will be admitted for intractable pain Review of Systems Review of Systems: Yes all other systems are reviewed and are negative [facility] Medical History Amputation of left great toe CHF (congestive heart failure) Diabetes mellitus Discitis ESRD (end stage renal disease) GERD (gastroesophageal reflux disease) HTN (hypertension) Hyperlipidemia Presence of arteriovenous dialysis shunt Surgical History H/O hernia repair H/O shoulder surgery Social History Household Members: None Housing: House Do you presently have visiting nurse or other home services: Yes (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 If so, by whom?: No Do you feel safe in your current relationship?: No Current Relationship Is there a partner from a previous relationship who is making you feel unsafe now?: No Are you made to feel afraid or neglected: No Advance Directives: No Advance Directives Information Provided: No Do you have thoughts of harming others: None Do you have a plan to hurt others: No Plan Recently lost weight without trying: No Eating poorly because of decreased appetite: No Nutrition Risks: No Nutritional Risk Poor oral hygiene: No service: No Current occupational status: retired [employer] Allergies Allergy/AdvReac Type Severity Reaction Status Date / Time metformin [METFORMIN] Allergy Intermediate IT MESSES Verified 02/01/21 19:25 ME UP Vrgohot-Fyl-Vab Reductase Allergy Intermediate NAUSEA Verified 02/01/21 19:25 Inhibitor [[id number]-OMZ-MPY REDUCTASE INHIBITOR] cephalexin [From KEFLEX] Allergy Unknown UNSPECIFIED Verified 02/01/21 19:25 IT MESSES ME UP any form of statin Allergy Unknown Unknown Uncoded 02/01/21 19:25 glucophage Allergy Unknown Diarrhea Uncoded 02/01/21 19:25 Active Medications: Current Medications Generic Name Dose Route Start Last Admin Trade Name Freq PRN Reason Stop Dose Admin Acetaminophen 650 mg 02/02/21 03:14 Acetaminophen 325 Mg Tablet PO Q6H PRN Pain, Mild (Pain Scale 1-3) Docusate Sodium 100 mg 02/02/21 03:14 Docusate Sodium 100 Mg Capsule PO DAILY PRN Constipation Heparin Sodium (Porcine) 5,000 unit 02/02/21 03:14 02/02/21 04:09 Heparin Sodium,Porcine 5,000 Unit/Ml Vial SUBCUT Not Given Q12H [facility] Lidocaine 1 patch 02/02/21 09:00 Lidocaine 4 % Patch Adh..Patch TRANSDERMA DAILY [facility] Protocol Ondansetron HCl 4 mg 02/02/21 03:14 Ondansetron Hcl 4 Mg/2 Ml Vial IVPUSH Q8H PRN Nausea and Vomiting Oxycodone HCl 5 mg 02/02/21 03:14 Oxycodone Hcl Immed Release 5 Mg Tablet PO Q6H PRN Pain, Severe (Pain Scale 7-10) Sodium Chloride 3 ml 02/02/21 03:14 02/02/21 04:09 0.9 % Sodium Chloride Flush 3 Ml Syringe IVFLUSH Not Given QSHIFT [facility] Home Medications Medication Instructions Recorded Confirmed Last Taken Type aspirin 81 mg tablet,delayed 81 mg PO DAILY 03/30/20 01/27/21 03/30/20 History release megestrol 400 mg/10 mL (40 mg/mL) 400 mg PO DAILY 03/30/20 01/27/21 03/30/20 History oral suspension polyethylene glycol 3350 17 gram 17 g PO DAILY 03/30/20 01/27/21 03/30/20 History oral powder packet (Miralax) rosuvastatin 5 mg tablet (Crestor) 5 mg PO DAILY 03/30/20 01/27/21 03/30/20 History sevelamer carbonate 800 mg tablet 1,600 mg PO TIDWM 03/30/20 02/02/21 03/30/20 History (Renvela) ammonium lactate 12 % topical cream 1 appl TOPICAL BID PRN 01/29/21 01/29/21 Unknown History ondansetron HCl 4 mg tablet 1 tab PO BID PRN 01/29/21 01/29/21 Unknown History sevelamer carbonate 800 mg tablet 800 mg PO BID PRN 01/29/21 01/29/21 Unknown History Physical Exam Vital Signs and Narrative: Vital Signs: Last Vital Signs Temp 97.8 F 02/02/21 04:00 Pulse 64 02/02/21 04:00 Resp 18 02/02/21 04:00 BP 166/61 H 02/02/21 04:00 Pulse Ox 100 02/02/21 04:00 Body Mass Index 22.7 Const: Other: Patient laying in bed, appears comfortable with no acute distress General: cooperative and no acute distress Orientation/consciousness: patient oriented x3 Eyes: General: appearance normal, both eyes and all related structures Resp: Effort & Inspection: normal respiratory effort and able to speak in complete sentences Auscultation: clear to auscultation bilaterally Cardio: Rate: regular rate Rhythm: regular rhythm GI: Palpation (GI): Soft to palpation Auscultation: normal bowel sounds Skin: General skin exam: no rashes or lesions noted Neuro: General: patient oriented x3 Cognition (Neuro): normal cognition Extrem: General: Yes normal to inspection and Yes no pedal edema Results Labs CBC and Chem 7: 02/01/21 23:01 02/01/21 23:01 Labs: Laboratory Results - last 24 hr 02/01/21 02/01/21 02/02/21 23:01 23:01 02:10 MCV 85.5 MCH 28.6 MCHC 33.4 RDW 15.9 Plt Count 346 MPV 8.4 L Immature Gran % (Auto) 0.5 H Neut % (Auto) 78.6 H Lymph % (Auto) 9.7 L [place] % (Auto) 10.7 Eos % (Auto) 0.2 Baso % (Auto) 0.3 Lymph # (Auto) 0.6 L [place] # (Auto) 0.7 Eos # (Auto) 0.0 Baso # (Auto) 0.0 Abs Immat Gran (auto) 0.03 Absolute Neuts (auto) 5.1 Absolute Nucleated RBC 0.000 Nucleated RBC % (auto) 0.0 Anion Gap 20 Estim Creat Clear Calc 12.0 Estimated GFR 10 Random Glucose 143 H Calcium 8.9 D Total Bilirubin 0.4 AST 26 ALT 15 Alkaline Phosphatase 166 H D Total Protein 7.0 Albumin 3.6 COVID-19 (ERIKA) Negative COVID-19 Clin Com See Note Assessment and Plan (1) Discitis: Status: Acute (2) Intractable back pain: Status: Acute (3) ESRD (end stage renal disease): Status: Acute This is a 70-year-old male who was recently admitted and managed for diskitis and Gram-positive bacteremia returns 1 hour after being discharged for intractable back pain # discitis - continue IV antibiotics with ceftriaxone and vancomycin post dialysis sessions - pain management with oxycodone # intractable back pain - secondary to diskitis - will prescribe from p.o. pain medications - will need to have his medication picked of somehow prior to getting home so he has pain control and does not need to return to hospital for pain management # ESRD on dialysis - consult Nephrology for dialysis # hypertension - stable Will continue his meds once med reconciliation has been done DVT prophylaxis: Heparin subQ Quality Stroke Does the patient have a stroke diagnosis?: No VTE Prior VTE?: No VTE Risk Level:: Medical - moderate - high VTE Device Contraindication: Treatment Not Indicated VTE Drug Contraindication: N/A - Med Ordered
[2021-02-02 06:15] LABS: MANUAL DIFF FLAG NO
[2021-02-02 06:24] LABS: Basophils Percent Auto 0.3 % (0-2); Eosinophils Percent Auto 0.3 % (0-4); Hematocrit 34.6 % (42-52); Hemoglobin 11.5 g/dl (14.0-18.0); Imm Gran Abs Auto 0.03 X10*3/uL (0.00-0.03); Imm Gran Pct Auto 0.5 % (0.0-0.4); Lymphocytes Absolute Auto 0.9 X10*3/uL (1.2-4.9); Lymphocytes Percent Auto 14.8 % (20-40); Mean Corpuscular HGB Conc 33.2 g/dl (31.0-36.0); Mean Corpuscular Hemoglobin 28.8 pg (27.0-33.0); Mean Corpuscular Volume 86.5 fL (80-98); Mean Platelet Volume 9.3 fL (9.4-12.4); Monocytes Absolute Auto 0.8 X10*3/uL (0.1-1.2); Monocytes Percent Auto 13.2 % (2-11); Neutrophils Absolute Auto 4.4 X10*3/uL (2.0-8.3); Neutrophils Percent Auto 70.9 % (45-73); Platelet Count 398 X10*3/uL (160-400); White Blood Count 6.2 X10*3/uL (4.8-10.8)
[2021-02-02 06:57] LABS: Anion Gap 22 (12-20); Blood Urea Nitrogen 40 mg/dL (9-16); Calcium 9.3 mg/dL (8.4-10.2); Carbon Dioxide 21 mmol/L (22-29); Chloride 94 mmol/L (96-108); Creatinine Clr Calc Pharmacy 11.3; Estimated Glomerular Filt Rate 9; Glucose Random 110 mg/dL (60-115); Potassium 5.8 mmol/L (3.3-5.1); Sodium 131 mmol/L (135-145)
--- NOTE | 2021-02-02 07:26 | PC.NURSE ---
creat level of 6.07 reported to md after receiving from lab dept at 0654 this am, no new orders at this time, day rn alerted
--- NOTE | 2021-02-02 08:19 | W.PM.DNNEP ---
Subjective Subjective This patient was seen during dialysis. Physical Exam Vital Signs: Vital Signs: Last Vital Signs Temp 97.8 F 02/02/21 04:00 Pulse 64 02/02/21 04:00 Resp 18 02/02/21 04:00 BP 166/61 H 02/02/21 04:00 Pulse Ox 100 02/02/21 04:00 Body Mass Index 22.7 Const: Other: Patient laying in bed, appears comfortable with no acute distress General: cooperative and no acute distress Orientation/consciousness: patient oriented x3 Eyes: General: appearance normal, both eyes and all related structures Resp: Effort & Inspection: normal respiratory effort and able to speak in complete sentences Auscultation: clear to auscultation bilaterally Cardio: Rate: regular rate Rhythm: regular rhythm GI: Palpation (GI): Soft to palpation Auscultation: normal bowel sounds Skin: General skin exam: no rashes or lesions noted Neuro: General: patient oriented x3 Cognition (Neuro): normal cognition Extrem: General: Yes normal to inspection and Yes no pedal edema Assessment & Plan Assessment and plan (1) Discitis: Status: Acute (2) Intractable back pain: Status: Acute (3) ESRD (end stage renal disease): Status: Acute Assessment and Plan: This is a 70-year-old male who was recently admitted and managed for diskitis and Gram-positive bacteremia returns 1 hour after being discharged for intractable back pain # discitis - continue IV antibiotics with ceftriaxone and vancomycin post dialysis sessions - pain management with oxycodone Time Spent With Patient Time: Total time spent is greater than 50% in coordination of care (as documented) at patient's floor/unit and/or counseling patient: Procedures Date of Service Date of Service: 02/02/21
[2021-02-02] MEDS: Lidocaine 4 % Patch ADH..PATCH 1 PATCH TRANSDERMA (11:04)
--- NOTE | 2021-02-02 12:29 | P.CDIC_ITS ---
CDI Concurrent Query Service Date: 02/02/21 Documentation Clarification: Please clarify if you are treating a proba ble/suspected/likely or confirmed: Diskitis, please specify as pyogenic, not pyogenic and region (cervical, cervicothoracic, lumbar, lumbosacral, ipjhqud-cjoyjue-juyne, sacral, sacrococcygeal, thoracic, thoracolumbar, multiple, unspecified) Provider Response: Other Other Diagnosis: lumbosacral discitis, nonpyogenic PLEASE DO NOT DELETE/MODIFY EXISTING CONTENT Additional information is needed in order to code to the highest accuracy and appropriate Severity of Illness (SOI). Please clarify the information noted below in your progress notes and discharge summary. Risk Factors/Clinical Indicators/Treatments Diskitis, intractable back pain per H&P CDS: Cristal Deshpande RN Contact Number: [phone] Please Review the information above and exercise your independent professional judgment in responding to the query. If you concur, pleas document in the PROGRESS NOTES and DISCHARGE SUMMARY. If you do not agree with the query, please document in the query above. THIS QUERY IS PART OF THE PERMANENT MEDICAL RECORD
--- NOTE | 2021-02-02 14:39 | P.EN_ITS ---
Event Note Date of Service: 02/02/21 Event Note: Physician Advisory note: Patient's chart reveiwed. 70 year old with ESRDz, with a recent admission for discitis discharged on 02/01/21. He was unable to fill medications and returned to the ED shortly after discharge with intractable back pain secondary to discit is. The patient started to receive services responsive to his complaint prior to the midnight of 02/01/21. The patient was admitted and brought into the hospital for pain management and to continue therapy for his ESRDz and infection. The patient was placed on oral pain medications. Currently attempts are being made to place the patient. There is no 2 MN stay documented by the admitting provider. A 2 MN stay cannot be inferred from the plan of care. The patient did not receive a procedure on the inpatient only list. The patient has only had a single midnight of a medically necessary hospitalization. The patient's status is outpatient. Observation is appropriate.
--- NOTE | 2021-02-02 14:50 | MHC.CM.PN ---
CODE 44: Medicare pt admitted INPT without supportive findings per EMR/Interqual. Discussed with attending provider who feels pt should be OBS level of care. Order changed, physician advisor notified and agrees with OBS determination after EMR review. Documentation per [facility] policy. Pt will be issued the TAN form by ryder BABB.
--- NOTE | 2021-02-02 15:05 | P.PNIM_ITS ---
Subjective Subjective Date of Service: 02/02/21 Interval History: Pain controlled on PO oxycodone as long as he doesn't move too much Had HD yesterday Basically came back to hospital as he did not have enough assistance at home to do his ADLs However, he is resistant to going to rehab. Interested in VNA once his pain is better and his function status improves Review of Systems Review of Systems: Yes all other systems are reviewed and are negative Physical Exam Vital Signs: Vital Signs: Last Vital Signs Temp 97.6 F 02/02/21 08:00 Pulse 66 02/02/21 08:00 Resp 20 02/02/21 12:00 BP 167/80 H 02/02/21 08:00 Pulse Ox 100 02/02/21 08:00 Body Mass Index 22.7 Gen: in no acute distress HEENT: sclera anicteric, moist mucus membranes Neck: supple Lungs: clear to auscultation bilaterally Heart: regular rate and rhythm, no murmurs Abd: soft, non-tender, non-distended Ext: no edema Skin: warm/well-perfused Back: tenderness lower L-spine/sacrum, no discharge, no fluctuance Neuro: alert and oriented x3, no focal findings, no motor weakness, no sensory deficit Psych: appropriate affect Objective Data Current Medications Generic Name Dose Route Start Last Admin Trade Name Kevinq PRN Reason Stop Dose Admin Acetaminophen 650 mg 02/02/21 03:14 Acetaminophen 325 Mg Tablet PO Q6H PRN Pain, Mild (Pain Scale 1-3) Docusate Sodium 100 mg 02/02/21 03:14 Docusate Sodium 100 Mg Capsule PO DAILY PRN Constipation Heparin Sodium (Porcine) 5,000 unit 02/02/21 03:14 02/02/21 04:09 Heparin Sodium,Porcine 5,000 Unit/Ml Vial SUBCUT Not Given Q12H [facility] Ceftriaxone Sodium 2 gm/ 50 mls @ 100 mls/hr 02/03/21 16:00 Sodium Chloride IV TuThSa@1600 SAMI Lidocaine 1 patch 02/02/21 09:00 02/02/21 11:04 Lidocaine 4 % Patch Adh..Patch TRANSDERMA 1 patch DAILY SAMI Administration Protocol Ondansetron HCl 4 mg 02/02/21 03:14 Ondansetron Hcl 4 Mg/2 Ml Vial IVPUSH Q8H PRN Nausea and Vomiting Oxycodone HCl 5 mg 02/02/21 03:14 Oxycodone Hcl Immed Release 5 Mg Tablet PO Q6H PRN Pain, Severe (Pain Scale 7-10) Sodium Chloride 3 ml 02/02/21 03:14 02/02/21 07:51 0.9 % Sodium Chloride Flush 3 Ml Syringe IVFLUSH Not Given QSHIFT [facility] Labs CBC & Chem 7: 02/02/21 05:38 02/02/21 05:38 Labs: Laboratory Results - last 24 hr 02/01/21 02/01/21 02/02/21 23:01 23:01 02:10 MCV 85.5 MCH 28.6 MCHC 33.4 RDW 15.9 Plt Count 346 MPV 8.4 L Immature Gran % (Auto) 0.5 H Neut % (Auto) 78.6 H Lymph % (Auto) 9.7 L [place] % (Auto) 10.7 Eos % (Auto) 0.2 Baso % (Auto) 0.3 Lymph # (Auto) 0.6 L [place] # (Auto) 0.7 Eos # (Auto) 0.0 Baso # (Auto) 0.0 Abs Immat Gran (auto) 0.03 Absolute Neuts (auto) 5.1 Absolute Nucleated RBC 0.000 Nucleated RBC % (auto) 0.0 Anion Gap 20 Estim Creat Clear Calc 12.0 Estimated GFR 10 Random Glucose 143 H Calcium 8.9 D Total Bilirubin 0.4 AST 26 ALT 15 Alkaline Phosphatase 166 H D Total Protein 7.0 Albumin 3.6 COVID-19 (ERIKA) Negative COVID-19 Clin Com See Note 02/02/21 02/02/21 05:38 05:38 MCV 86.5 MCH 28.8 MCHC 33.2 RDW 16.0 Plt Count 398 MPV 9.3 L Immature Gran % (Auto) 0.5 H Neut % (Auto) 70.9 Lymph % (Auto) 14.8 L [place] % (Auto) 13.2 H Eos % (Auto) 0.3 Baso % (Auto) 0.3 Lymph # (Auto) 0.9 L [place] # (Auto) 0.8 Eos # (Auto) 0.0 Baso # (Auto) 0.0 Abs Immat Gran (auto) 0.03 Absolute Neuts (auto) 4.4 Absolute Nucleated RBC 0.000 Nucleated RBC % (auto) 0.0 Anion Gap 22 H Estim Creat Clear Calc 11.3 Estimated GFR 9 Random Glucose 110 Calcium 9.3 Total Bilirubin AST ALT Alkaline Phosphatase Total Protein Albumin COVID-19 (ERIKA) COVID-19 Clin Com Assessment and Plan (1) Discitis of lumbosacral region: Status: Acute Assessment and Plan: hospital d#1 70yo M with ESRD on HD, HTN, CHF, HLD admitted here 01/27-02/01/21 for lumbosacral discitis/Micromonas bacteremia, returned to hospital due to inability to care for self at home # lumbosacral discitis # Micromonas micro bacteremia - as per prior admission/ID consultation, ceftriaxone 2g IV tiw p HD TuThSa for 4 more weeks # ESRD - continue HD TuThSa, phos binder # HLD - continue statin # HTN - continue carvedilol [fell off med list at d/c yesterday] # chronic HFpEF - continue carvedilol; appears euvolemic # VTE ppx - UFH Quality Stroke Does the patient have a stroke diagnosis?: No VTE Prior VTE?: No VTE Risk Level:: Medical - moderate - high VTE Device Contraindication: Treatment Not Indicated VTE Drug Contraindication: N/A - Med Ordered
--- NOTE | 2021-02-02 15:17 | MHC.CLN ---
NUTRITION PATIENT IS DIABETIC WITH ESRD ON HEMODIALYSIS. DIET CHANGED TO REFLECT DM AND ESRD/HEMODIALYSIS: DIABETIC 1800 KCAL (25.8 KCAL/KG); 2 GRAM SODIUM; LOW PHOSPHOROUS; LOW POTASSIUM.
[2021-02-02] MEDS: Heparin Sodium,Porcine 5,000 UNIT/ML VIAL 5000 UNIT SUBCUT (17:18)
[2021-02-02] MEDS: Sevelamer Carbonate Tablet 800 MG TABLET 1600 MG PO (17:19)
[2021-02-02] MEDS: Omeprazole 40 MG CAPSULE.DR PO (17:20)
[2021-02-02] MEDS: oxyCODONE HCl Immed Release 5 MG TABLET PO (17:25)
[2021-02-02] MEDS: carvediloL 25 MG TABLET PO (20:47)
[2021-02-03] MEDS: oxyCODONE HCl Immed Release 5 MG TABLET PO (03:35)
[2021-02-03 03:55] VITALS: BP 141/59; PULSE 55; RESP 14; TEMP 36.2; O2SAT 100
[2021-02-03 04:51] VITALS: RESP 18
[2021-02-03] MEDS: Omeprazole 40 MG CAPSULE.DR PO ×2 (06:31→17:23)
[2021-02-03 07:02] VITALS: BP 170/63; PULSE 62; RESP 18; TEMP 35.9; O2SAT 100
[2021-02-03] MEDS: carvediloL 25 MG TABLET PO (07:45)
[2021-02-03] MEDS: Sevelamer Carbonate Tablet 800 MG TABLET 1600 MG PO ×2 (07:45→17:23)
[2021-02-03] MEDS: Aspirin Enteric Coated 81 MG TABLET.DR PO (07:45)
[2021-02-03] MEDS: Atorvastatin Calcium 20 MG TABLET PO (07:45)
[2021-02-03] MEDS: polyethylene glycoL 3350 17 GM POWD.PACK PO (07:45)
[2021-02-03] MEDS: Lidocaine 4 % Patch ADH..PATCH 1 PATCH TRANSDERMA (07:52)
[2021-02-03] MEDS: Megestrol Acetate 400 MG/10 ML ORAL.SUSP PO (07:53)
--- NOTE | 2021-02-03 12:31 | MHC.CM.PN ---
PT DISCHARGED ON 02/01 AND WAS READMITTED THE NEXT DAY. PT REPORTS NOTHING HAS CHANGED. CM DISCUSSED THE REASONS THE DC WAS UNSUCCESSFUL, PT REPORTS HE DID NOT FILL HIS RX FOR PAIN MEDS. CM DISCUSSED POTENTIAL DC PLANS AND PT REPORTS HE IS WILLING TO HAVE HOME PT AT DC BUT STILL NOT AGREEABLE TO STR. PT REPORTS HE HAS HAD [facility] IN THE PAST AND WOULD LIKE A REFERRAL SENT TO THEM. PT REPORTS HE HAS ALREADY MADE ARRANGEMENTS TO ENSURE HE IS ABLE TO FILL HIS SCRIPTS AT DC PRIOR TO RETURNING HOME. CURRENT DC PLAN IS HOME WITH [facility] FOR PT PTS SON WILL TRANSPORT
--- NOTE | 2021-02-03 12:55 | W.MHC.F2F ---
Service Date Service Date: 02/03/21 Encounter Date of encounter: 02/03/21 Reasons for Services Signs and symptoms assessed: Back pain, mobility Reason for alf: medication management, medication treatment and teach disease management Reason for physical therapy: home safety and mobility, therapeutic exercises, restore joint function, gait/transfer training, assess need for DME, ADL training and energy conservation Reason for occupational therapy: home safety and mobility, therapeutic exercises, restore joint function, gait/transfer training, assess need for DME, ADL training and energy conservation Overseeing Care: Janice Hollingsworth Homebound: Leaving the home is medically contraindicated at this time without the asist of a device and/or another person due th the listed conditions above and below. Reason homebound: pain with transfers Homebound supporting statement: VNA services for home PT/OT and medication management, home safety evaluation in this 70yo M with discitis and Micromonas bacteremia. Certification: Based on the above findings, I certify that this patient is confined to the home and needs intermittent alf care, physical therapy and/or speech therapy, or continues to need occupational therapy. The patient is under my care, and I have initiated the establishment of the plan of care. The patient will be followed by a physician who will periodically review the plan of care.
[2021-02-03] MEDS: cefTRIAXone sodium 2 GM in 0.9 % Sodium Chloride 50 ML IV (13:59)
--- NOTE | 2021-02-03 15:36 | P.DS_ITS ---
DS: Providers Provider Date of Service: 02/03/21 Date of admission: 02/02/21 00:05 Date of discharge: 02/03/21 Primary care physician: Janice Hollingsworth MD Admitting clinician: Jay Stallings Attending physician on admission: Jay Stallings Consults: 02/02/21 06:05 Consult to Nephrology Routine Consulting Provider: [facility] Reason for consultation: ESRD on dialysis Has provider been notified: No Attending physician on discharge: Deonna Serrano Discharging clinician: Deonna Serrano DS: Diagnosis Discharge Diagnosis (1) Discitis of lumbosacral region: DS: Medications Discharge Medications Home Medications: Home Medications Medication Instructions Recorded Confirmed aspirin 81 mg tablet,delayed 81 mg PO DAILY 03/30/20 02/02/21 release megestrol 400 mg/10 mL (40 mg/mL) 400 mg PO DAILY 03/30/20 02/02/21 oral suspension polyethylene glycol 3350 17 gram 17 g PO DAILY 03/30/20 02/02/21 oral powder packet (Miralax) rosuvastatin 5 mg tablet (Crestor) 5 mg PO DAILY 03/30/20 02/02/21 sevelamer carbonate 800 mg tablet 1,600 mg PO TIDWM 03/30/20 02/02/21 (Renvela) ammonium lactate 12 % topical cream 1 appl TOPICAL BID PRN 01/29/21 02/02/21 ondansetron HCl 4 mg tablet 1 tab PO BID PRN 01/29/21 02/02/21 sevelamer carbonate 800 mg tablet 800 mg PO BID PRN 01/29/21 02/02/21 Previous Rx's Medication Instructions Recorded omeprazole 40 mg capsule,delayed 40 mg PO BID@0630,1630 #60 cap 04/02/20 release ceftriaxone 2 gram solution for 2 g IV TUTHSA@1600 #12 ea 02/01/21 injection oxycodone 5 mg tablet 5 mg PO Q6H PRN #14 tab 02/01/21 carvedilol 25 mg tablet 25 mg PO BID #60 tab 02/03/21 DS: Summary Hospital Course Hospital Course: From admission H+P by Dr Stallings, 02/02/21: This is a 70-year-old male with will recently diagnosed diskitis, ESRD on dialysis, hypertension, CHF, who presents to the hospital 1 hour after being discharged for intractable back pain.? Patient was discharged yesterday after being managed for diskitis, and Gram-positive bacteremia was sent home on antibiotics post every dialysis session returns stating that he could not take the pain in his back.? He reports that he did not get a chance to fill his pain medications and he will not be able to fill it up now that it is after hours.? Patient is complaining of significant 8/10 pain, with difficulty ambulating due to the pain.? Patient reports that he may have not had the right bed and therefore he just could not take the pain and came back to the hospital.? He has no acute changes to his health since being discharged and returning 1 hour later.? He also feels that he may have gone home too early. Vitals on arrival reviewed unremarkable Labs are significant for WBC count of 6.5, hemoglobin of 11.0, sodium of 132, potassium 5.4, BUN of 37, creatinine of 5.74, otherwise unremarkable Patient will be admitted for intractable pain Prior hospitalization course summarized by Dr Galan in his discharge summary fr om 02/01/21. The patient's pain was actually controlled on PO oxycodone and the actual reason for returning to the hospital was inability to manage on his own at home without outpatient services. VNA for medication monitoring/teaching and home PT/OT was arranged. The patient underwent scheduled HD on 02/03/21 and was given ceftriaxone then. He was discharged home with VNA services and [facility] 4 weeks of ceftriaxone 2g IV to be given after HD TuThSa, as per Dr Galan's discharge summary. Time Spent with Patient Time attestation: Total time spent providing and/or coordinating discharge services: Discharge coordination time: Greater than 30 minutes Quality: Stroke Does the patient have a stroke diagnosis?: No Physical Exam Vital Signs: Vital Signs: Last Vital Signs Temp 96.7 F L 02/03/21 07:02 Pulse 62 02/03/21 07:02 Resp 18 02/03/21 07:02 BP 170/63 H 02/03/21 07:02 Pulse Ox 100 02/03/21 07:02 Body Mass Index 22.7 Gen: in no acute distress HEENT: sclera anicteric, moist mucus membranes Neck: supple Lungs: clear to auscultation bilaterally Heart: regular rate and rhythm, no murmurs Abd: soft, non-tender, non-distended Ext: no edema Skin: warm/well-perfused Back: tenderness lower L-spine/sacrum, no discharge, no fluctuance Neuro: alert and oriented x3, no focal findings, no motor weakness, no sensory deficit Psych: appropriate affect DS: Data Data Completed and Pending Completed studies during hospitalization [Text1]: Laboratory Results WBC 6.2 X10*3/uL (4.8-10.8) 02/02/21 05:38 RBC 4.00 X10*6/uL (4.60-5.80) L 02/02/21 05:38 Hgb 11.5 g/dl (14.0-18.0) L 02/02/21 05:38 Hct 34.6 % (42-52) L 02/02/21 05:38 MCV 86.5 fL (80-98) 02/02/21 05:38 MCH 28.8 pg (27.0-33.0) 02/02/21 05:38 MCHC 33.2 g/dl (31.0-36.0) 02/02/21 05:38 RDW 16.0 % (11.0-16.0) 02/02/21 05:38 Plt Count 398 X10*3/uL (160-400) 02/02/21 05:38 MPV 9.3 fL (9.4-12.4) L 02/02/21 05:38 Immature Gran % (Auto) 0.5 % (0.0-0.4) H 02/02/21 05:38 Neut % (Auto) 70.9 % (45-73) 02/02/21 05:38 Lymph % (Auto) 14.8 % (20-40) L 02/02/21 05:38 [place] % (Auto) 13.2 % (2-11) H 02/02/21 05:38 Eos % (Auto) 0.3 % (0-4) 02/02/21 05:38 Baso % (Auto) 0.3 % (0-2) 02/02/21 05:38 Lymph # (Auto) 0.9 X10*3/uL (1.2-4.9) L 02/02/21 05:38 [place] # (Auto) 0.8 X10*3/uL (0.1-1.2) 02/02/21 05:38 Eos # (Auto) 0.0 X10*3/uL (0.0-0.4) 02/02/21 05:38 Baso # (Auto) 0.0 X10*3/uL (0.0-0.2) 02/02/21 05:38 Abs Immat Gran (auto) 0.03 X10*3/uL (0.00-0.03) 02/02/21 05:38 Absolute Neuts (auto) 4.4 X10*3/uL (2.0-8.3) 02/02/21 05:38 Absolute Nucleated RBC 0.000 X10*3/uL (0.0-0.012) 02/02/21 05:38 Nucleated RBC % (auto) 0.0 /100WBC (0.0-0.2) 02/02/21 05:38 Sodium 131 mmol/L (135-145) L 02/02/21 05:38 Potassium 5.8 mmol/L (3.3-5.1) H 02/02/21 05:38 Chloride 94 mmol/L (96-108) L 02/02/21 05:38 Carbon Dioxide 21 mmol/L (22-29) L 02/02/21 05:38 Anion Gap 22 (12-20) H 02/02/21 05:38 BUN 40 mg/dL (9-16) H 02/02/21 05:38 Creatinine 6.07 mg/dL (0.5-1.4) H* 02/02/21 05:38 Estim Creat Clear Calc 11.3 02/02/21 05:38 Estimated GFR 9 02/02/21 05:38 Random Glucose 110 mg/dL (60-115) 02/02/21 05:38 Calcium 9.3 mg/dL (8.4-10.2) 02/02/21 05:38 Total Bilirubin 0.4 mg/dL (0.0-1.0) 02/01/21 23:01 AST 26 U/L (5-37) 02/01/21 23:01 ALT 15 U/L (0-40) 02/01/21 23:01 Alkaline Phosphatase 166 U/L (39-117) H D 08/12/21 23:01 Total Protein 7.0 g/dL (6.5-8.0) 02/01/21 23:01 Albumin 3.6 g/dL (3.5-5.0) 02/01/21 23:01 COVID-19 (ERIKA) Negative (Negative) 02/02/21 02:10 COVID-19 Clin Com See Note 02/02/21 02:10 Discharge Plan Discharge Patient Disposition: Home Health Service Referrals: [facility] [Outside] - 1 Day (YOUR VISITING NURSE SERVICES WILL START ON FRIDAY ) Janice Hollingsworth MD [Primary Care Provider] - 1 Week Discharge Medications: New carvedilol 25 mg Tablet 25 mg PO BID Qty: 60 RF: 0 Continued megestrol 400 mg/10 mL (40 mg/mL) Suspension 400 mg PO DAILY RF: 0 Hold Instructions: Resume on 04/17/20. start as per pcp. polyethylene glycol 3350 [Miralax] 17 gram Powder In Packet 17 g PO DAILY RF: 0 aspirin 81 mg Tablet,Delayed Release (Dr/Ec) 81 mg PO DAILY RF: 0 Hold Instructions: Resume on 04/17/20. monitor H&H outpatient with PCP and Nephrology- is going to repeat the labs hematocrit and renal function electrolytes outpatient. rosuvastatin [Crestor] 5 mg Tablet 5 mg PO DAILY RF: 0 sevelamer carbonate [Renvela] 800 mg Tablet 1,600 mg PO TIDWM RF: 0 omeprazole 40 mg Capsule,Delayed Release(Dr/Ec) 40 mg PO BID@0630,1630 Qty: 60 RF: 0 ondansetron HCl 4 mg tablet 1 tab PO BID PRN (Reason: nausea/vomiting) RF: 0 ammonium lactate 12 % cream 1 appl topical BID PRN (Reason: Dry Skin) RF: 0 sevelamer carbonate 800 mg tablet 800 mg PO BID PRN (Reason: snacks) RF: 0 ceftriaxone 2 gram Recon Soln 2 g IV TUTHSA@1600 Qty: 12 RF: 0 oxycodone 5 mg tablet 5 mg PO Q6H PRN (Reason: pain (scale score 7-10)) Qty: 14 RF: 0 Discharge Orders: Discharge Order (Routine); Ordered 02/03/21 Ordered By: Deonna Serrano Diet: advance to usual diet Activity on Discharge: As tolerated Stand Alone Forms: Patient Portal Discharge page Care Plan Goals: resolution of discitis, bacteremia Health Concerns: discitis, bacteremia Plan of Treatment: Ceftriaxone 2 gram? after dialysis for 4 weeks home PT/OT/VNA Assessment: as above Discharge Date/Time: 02/03/21 20:31
[2021-02-03 16:00] VITALS: BP 126/55; PULSE 60; RESP 16; TEMP 36.2; O2SAT 100
[2021-02-03] MEDS: Heparin Sodium,Porcine 5,000 UNIT/ML VIAL 5000 UNIT SUBCUT (17:23)
== END 2021-02-03 20:31 | disposition home health service (06) ==
LOC: HO.ED 21:05 → HO.EDOVER 02-02 00:29 → HO.S3 02-02 07:46 → HO.EDOVER 02-02 14:05 → HO.S3 02-02 14:05
PROVIDERS: Admitting Provider Internal Medicine; Emergency Provider Student in an Organized Health Care Education/Training Program; PCP Family Medicine; Visit Provider Family Medicine
DX: M46.47 Discitis, unspecified, lumbosacral region (principal); R78.81 Bacteremia; E11.22 Type 2 diabetes mellitus with diabetic chronic kidney disease; I12.9 Hypertensive chronic kidney disease with stage 1 through stage 4 chronic kidney disease, or unspecified chronic kidney disease; N18.6 End stage renal disease; I50.9 Heart failure, unspecified; Z20.822 Contact with and (suspected) exposure to COVID-19; Z99.2 Dependence on renal dialysis; Z79.899 Other long term (current) drug therapy
CPT/HCPCS: 36415; 80048; 80053; 85025; 87635; 90999; 96365; 96372; 96375; 99218; 99285; J0696

== ENCOUNTER 2021-05-12 19:20 | Inpatient (IN) | payer MEDICARE, MEDICAID, SELFPAY ==
--- NOTE | 2021-05-12 | ECG_ITS ---
Test Reason : CHEST PAIN Blood Pressure : / mmHG Vent. Rate : 090 BPM Atrial Rate : 090 BPM P-R Int : 172 ms QRS Dur : 148 ms QT Int : 416 ms P-R-T Axes : 042 -76 105 degrees QTc Int : 508 ms Sinus rhythm with frequent Premature ventricular complexes Right bundle branch block Left anterior fascicular block Bifascicular block Poor R wave progression Abnormal ECG When compared with ECG of 27-JAN-2021 01:11, MO interval has decreased Premature ventricular complexes are now more frequent Referred By: Deonna Serrano Electronically Signed By:EMELY DOVER MD
--- NOTE | ~2021-05-12 | XR_ITS ---
EXAMINATION: XR CHEST CLINICAL INFORMATION: Shortness of breath COMPARISON: Chest x-ray on 03/30/2020, CTA chest on 01/27/2021 TECHNIQUE: Frontal view of the chest was obtained. FINDINGS: No significant abnormality is noted involving the heart, lungs, mediastinum, bony thorax or soft tissues. XR/XR chest 1V IMPRESSION: Unremarkable examination.
--- NOTE | ~2021-05-12 | CT_ITS ---
EXAMINATION: CT ABDOMEN AND PELVIS WITHOUT CONTRAST CLINICAL INFORMATION: Nausea and vomiting COMPARISON: CTA abdomen and pelvis on 01/27/2021 TECHNIQUE: Multidetector volumetric imaging was performed from the superior aspect of the liver through the pubic symphysis. Sagittal and coronal reformatted images were obtained on the technologist's workstation. This CT examination was performed using dose optimization techniques as appropriate, variously including the following: *Automated exposure control *Adjustment of mA and/or kV according to patient size (this includes techniques or standardized protocols for targeted exams where dose is matched to indication/reason for exam; i.e. extremities or head) *Use of iterative reconstruction technique DLP: 397 mGy-cm FINDINGS: LUNG BASES: The visualized lung bases are unremarkable. LIVER, GALLBLADDER, AND BILIARY TREE: The liver is normal in size, shape, and attenuation. No focal hepatic lesion or biliary ductal dilatation is present. The gallbladder is unremarkable with no evidence of radiopaque gallstones, gallbladder wall thickening, or obvious pericholecystic inflammatory changes. PANCREAS: Unremarkable. SPLEEN: Unremarkable. ADRENAL GLANDS: Unremarkable. KIDNEYS AND URETERS: The kidneys are small in size. The there is bilateral cortical thinning. There are numerous bilateral renal cysts and hypodensities which are too small to characterize. Extensive vascular calcifications. BLADDER: Decompressed. GASTROINTESTINAL TRACT: Surgical clips within the stomach. The small and large bowel are unremarkable. The appendix is unremarkable. Colonic diverticulosis is noted. ABDOMINAL WALL: No significant hernia is appreciated. LYMPH NODES: Normal. VASCULAR: The abdominal aorta is normal in caliber. There is moderate calcific atherosclerotic disease. There are dystrophic calcifications of the arterials in multiple organs including the liver, spleen, and kidneys. PELVIC VISCERA: Unremarkable. OSSEOUS STRUCTURES: Moderate degenerative disease of the thoracolumbar spine. Worsening lucencies and irregularity at L5-S1 appear worsened compared to the CT on 01/27/2021. CT/CT abdomen pelvis wo con IMPRESSION: Worsening lucencies and irregularity at L5-S1 appear worsened compared to the CT on 01/27/2021. This is suspicious for progression of osteomyelitis/discitis.
[2021-05-12 19:26] VITALS: BP 126/61; BP 150/90; PULSE 80; RESP 20; O2SAT 92; BMI 20.6
--- NOTE | 2021-05-12 19:37 | PC.NURSE ---
PATIENT WAS UNDRESS AND CHANGE INTO HOSPITAL ATTIRE .
[2021-05-12 20:00] VITALS: O2SAT 89
--- NOTE | 2021-05-12 20:03 | ED_ITS ---
HPI - Nausea/Vomiting/Diarrhea General Chief complaint: Nausea/Vomiting/Diarrhea Stated complaint: UNREADABLE EMS REPORT/NO RESPONSE W/REPEAT REQUEST Time Seen by Provider: 05/12/21 19:42 Related Data Home Medications Medication Instructions Recorded Confirmed aspirin 81 mg tablet,delayed 81 mg PO DAILY 03/30/20 02/02/21 release megestrol 400 mg/10 mL (40 mg/mL) 400 mg PO DAILY 03/30/20 02/02/21 oral suspension polyethylene glycol 3350 17 gram 17 g PO DAILY 03/30/20 02/02/21 oral powder packet (Miralax) rosuvastatin 5 mg tablet (Crestor) 5 mg PO DAILY 03/30/20 02/02/21 sevelamer carbonate 800 mg tablet 1,600 mg PO TIDWM 03/30/20 02/02/21 (Renvela) ammonium lactate 12 % topical cream 1 appl TOPICAL BID PRN 01/29/21 02/02/21 ondansetron HCl 4 mg tablet 1 tab PO BID PRN 01/29/21 02/02/21 sevelamer carbonate 800 mg tablet 800 mg PO BID PRN 01/29/21 02/02/21 Previous Rx's Medication Instructions Recorded omeprazole 40 mg capsule,delayed 40 mg PO BID@0630,1630 #60 cap 04/02/20 release ceftriaxone 2 gram solution for 2 g IV TUTHSA@1600 #12 ea 02/01/21 injection oxycodone 5 mg tablet 5 mg PO Q6H PRN #14 tab 02/01/21 carvedilol 25 mg tablet 25 mg PO BID #60 tab 02/03/21 Allergies Allergy/AdvReac Type Severity Reaction Status Date / Time metformin [METFORMIN] Allergy Intermediate IT MESSES Verified 02/01/21 19:25 ME UP Uejrkhq-UJD-HmX Reductase Allergy Intermediate NAUSEA Verified 02/01/21 19:25 Inhibitor [TAUMGVQ-DTA-LGJ REDUCTASE INHIBITOR] cephalexin [From KEFLEX] Allergy Unknown UNSPECIFIED Verified 02/01/21 19:25 IT MESSES ME UP any form of statin Allergy Unknown Unknown Uncoded 02/01/21 19:25 glucophage Allergy Unknown Diarrhea Uncoded 02/01/21 19:25 [facility] Past Medical History Medical History Amputation of left great toe CHF (congestive heart failure) Diabetes mellitus Discitis ESRD (end stage renal disease) GERD (gastroesophageal reflux disease) HTN (hypertension) Hyperlipidemia Presence of arteriovenous dialysis shunt Surgical History H/O hernia repair H/O shoulder surgery Social History Social History Household Members: None Housing: House Do you presently have visiting nurse or other home services: Yes (floor specialist for 6 hours a week) Alcohol intake: current Alcohol intake frequency: 0-2 drinks per day Patient Tobacco Use Status: Former Tobacco user Tobacco use type: Cigarette Second Hand Smoke Exposure: No Advance Directives: No Advance Directives Information Provided: No service: No Current occupational status: retired Physical Exam Vital Signs: Vital Signs: Last Vital Signs Resp 20 05/12/21 19:26 BP 126/61 05/12/21 19:26 Body Mass Index 20.6 MDM - Nausea/Vomiting/Diarrhea MDM Narrative Medical decision making narrative: On reviewing patient's chart he has a history of gastritis esophagitis. Likely this is the cause of patient's coffee-ground emesis. Patient's hemoglobin is actually 13 which is better than baseline. Patient's chemistry consistent with end-stage renal disease. Of note patient's potassium was 4.1. Patient given PPI eyes. Zofran for nausea. CT scan of the abdomen showed no acute obstruction, abscess, perforation. It did show worsening diskitis. Patient's case discussed with the hospitalist team. Will admit patient for further evaluation. Currently in stable condition. Medical Records Attestation: I reviewed the patient's medical records. Lab Data Attestation: I reviewed the patient's lab results. Result diagrams: 05/12/21 20:03 05/12/21 19:49 Labs: Lab Results 05/12/21 05/12/21 05/12/21 Range/Units 19:49 19:49 20:03 WBC 8.7 (4.8-10.8) X10*3/uL RBC 4.61 (4.60-5.80) X10*6/uL Hgb 13.5 L (14.0-18.0) g/dl Hct 43.7 (42.0-52.0) % MCV 94.8 (80.0-98.0) fL MCH 29.3 (27.0-33.0) pg MCHC 30.9 L (31.0-36.0) g/dl RDW 16.6 H (11.0-16.0) % Plt Count 318 (160-400) X10*3/uL MPV 10.6 (9.4-12.4) fL Immature Gran % (Auto) 0.2 (0.0-0.4) % Neut % (Auto) 86.7 H (45-73) % Lymph % (Auto) 8.2 L (20-40) % [place] % (Auto) 4.7 (2-11) % Eos % (Auto) 0.0 (0-4) % Baso % (Auto) 0.2 (0-2) % Lymph # (Auto) 0.7 L (1.2-4.9) X10*3/uL [place] # (Auto) 0.4 (0.1-1.2) X10*3/uL Eos # (Auto) 0.0 (0.0-0.4) X10*3/uL Baso # (Auto) 0.0 (0.0-0.2) X10*3/uL Abs Immat Gran (auto) 0.02 (0.00-0.03) X10*3/uL Absolute Neuts (auto) 7.5 (2.0-8.3) x10*3/uL Absolute Nucleated RBC 0.000 (0.0-0.012) X10*3/uL Nucleated RBC % (auto) 0.0 (0.0-0.2) /100WBC Sodium 142 (135-145) mmol/L Potassium 4.1 D (3.3-5.1) mmol/L Chloride 91 L (96-108) mmol/L Carbon Dioxide 28 (22-29) mmol/L Anion Gap 27 H (12-20) BUN 21 H (9-16) mg/dL Creatinine 5.33 H* (0.5-1.4) mg/dL Estim Creat Clear Calc 11.3 Estimated GFR 11 Random Glucose 195 H D (60-115) mg/dL Calcium 9.7 (8.4-10.2) mg/dL Phosphorus 2.9 (2.7-4.5) mg/dL Magnesium 2.4 (1.6-2.6) mg/dL Total Bilirubin 0.7 (0.0-1.0) mg/dL Direct Bilirubin 0.2 (0.0-0.5) mg/dL AST 24 (5-37) U/L ALT 13 (0-40) U/L Alkaline Phosphatase 105 D (39-117) U/L Troponin I High Sens 41.0 H* (<3.5-35.0) ng/L B-Natriuretic Peptide 135 H (<100) pg/mL Total Protein 8.6 H D (6.5-8.0) g/dL Albumin 4.5 D (3.5-5.0) g/dL Stool Occult Blood (NEGATIVE) Ethyl Alcohol mg/dL COVID-19 (ERIKA) (Negative) COVID-19 Clin Com 05/12/21 05/12/21 05/12/21 Range/Units 20:03 20:04 20:13 WBC (4.8-10.8) X10*3/uL RBC (4.60-5.80) X10*6/uL Hgb (14.0-18.0) g/dl Hct (42.0-52.0) % MCV (80.0-98.0) fL MCH (27.0-33.0) pg MCHC (31.0-36.0) g/dl RDW (11.0-16.0) % Plt Count (160-400) X10*3/uL MPV (9.4-12.4) fL Immature Gran % (Auto) (0.0-0.4) % Neut % (Auto) (45-73) % Lymph % (Auto) (20-40) % [place] % (Auto) (2-11) % Eos % (Auto) (0-4) % Baso % (Auto) (0-2) % Lymph # (Auto) (1.2-4.9) X10*3/uL [place] # (Auto) (0.1-1.2) X10*3/uL Eos # (Auto) (0.0-0.4) X10*3/uL Baso # (Auto) (0.0-0.2) X10*3/uL Abs Immat Gran (auto) (0.00-0.03) X10*3/uL Absolute Neuts (auto) (2.0-8.3) x10*3/uL Absolute Nucleated RBC (0.0-0.012) X10*3/uL Nucleated RBC % (auto) (0.0-0.2) /100WBC Sodium (135-145) mmol/L Potassium (3.3-5.1) mmol/L Chloride (96-108) mmol/L Carbon Dioxide (22-29) mmol/L Anion Gap (12-20) BUN (9-16) mg/dL Creatinine (0.5-1.4) mg/dL Estim Creat Clear Calc Estimated GFR Random Glucose (60-115) mg/dL Calcium Cancelled (8.4-10.2) mg/dL Phosphorus Cancelled (2.7-4.5) mg/dL Magnesium Cancelled (1.6-2.6) mg/dL Total Bilirubin (0.0-1.0) mg/dL Direct Bilirubin (0.0-0.5) mg/dL AST (5-37) U/L ALT (0-40) U/L Alkaline Phosphatase (39-117) U/L Troponin I High Sens (<3.5-35.0) ng/L B-Natriuretic Peptide (<100) pg/mL Total Protein (6.5-8.0) g/dL Albumin (3.5-5.0) g/dL Stool Occult Blood (NEGATIVE) Ethyl Alcohol < 10 mg/dL COVID-19 (ERIKA) Negative (Negative) COVID-19 Clin Com See Note 05/12/21 Range/Units 20:44 WBC (4.8-10.8) X10*3/uL RBC (4.60-5.80) X10*6/uL Hgb (14.0-18.0) g/dl Hct (42.0-52.0) % MCV (80.0-98.0) fL MCH (27.0-33.0) pg MCHC (31.0-36.0) g/dl RDW (11.0-16.0) % Plt Count (160-400) X10*3/uL MPV (9.4-12.4) fL Immature Gran % (Auto) (0.0-0.4) % Neut % (Auto) (45-73) % Lymph % (Auto) (20-40) % [place] % (Auto) (2-11) % Eos % (Auto) (0-4) % Baso % (Auto) (0-2) % Lymph # (Auto) (1.2-4.9) X10*3/uL [place] # (Auto) (0.1-1.2) X10*3/uL Eos # (Auto) (0.0-0.4) X10*3/uL Baso # (Auto) (0.0-0.2) X10*3/uL Abs Immat Gran (auto) (0.00-0.03) X10*3/uL Absolute Neuts (auto) (2.0-8.3) x10*3/uL Absolute Nucleated RBC (0.0-0.012) X10*3/uL Nucleated RBC % (auto) (0.0-0.2) /100WBC Sodium (135-145) mmol/L Potassium (3.3-5.1) mmol/L Chloride (96-108) mmol/L Carbon Dioxide (22-29) mmol/L Anion Gap (12-20) BUN (9-16) mg/dL Creatinine (0.5-1.4) mg/dL Estim Creat Clear Calc Estimated GFR Random Glucose (60-115) mg/dL Calcium (8.4-10.2) mg/dL Phosphorus (2.7-4.5) mg/dL Magnesium (1.6-2.6) mg/dL Total Bilirubin (0.0-1.0) mg/dL Direct Bilirubin (0.0-0.5) mg/dL AST (5-37) U/L ALT (0-40) U/L Alkaline Phosphatase (39-117) U/L Troponin I High Sens (<3.5-35.0) ng/L B-Natriuretic Peptide (<100) pg/mL Total Protein (6.5-8.0) g/dL Albumin (3.5-5.0) g/dL Stool Occult Blood POSITIVE (NEGATIVE) Ethyl Alcohol mg/dL COVID-19 (ERIKA) (Negative) COVID-19 Clin Com Discharge Plan Discharge Clinical Impression: Acute upper GI bleed Patient Disposition: Admitted As Inpatient Prescriptions: No Action megestrol 400 mg/10 mL (40 mg/mL) Suspension 400 mg PO DAILY RF: 0 Hold Instructions: Resume on 04/17/20. start as per pcp. polyethylene glycol 3350 [Miralax] 17 gram Powder In Packet 17 g PO DAILY RF: 0 aspirin 81 mg Tablet,Delayed Release (Dr/Ec) 81 mg PO DAILY RF: 0 Hold Instructions: Resume on 04/17/20. monitor H&H outpatient with PCP and Nephrology- is going to repeat the labs hematocrit and renal function electrolytes outpatient. rosuvastatin [Crestor] 5 mg Tablet 5 mg PO DAILY RF: 0 sevelamer carbonate [Renvela] 800 mg Tablet 1,600 mg PO TIDWM RF: 0 omeprazole 40 mg Capsule,Delayed Release(Dr/Ec) 40 mg PO BID@0630,1630 Qty: 60 RF: 0 carvedilol 25 mg Tablet 25 mg PO BID Qty: 60 RF: 0 ondansetron HCl 4 mg tablet 1 tab PO BID PRN (Reason: nausea/vomiting) RF: 0 ammonium lactate 12 % cream 1 appl topical BID PRN (Reason: Dry Skin) RF: 0 sevelamer carbonate 800 mg tablet 800 mg PO BID PRN (Reason: snacks) RF: 0 ceftriaxone 2 gram Recon Soln 2 g IV TUTHSA@1600 Qty: 12 RF: 0 oxycodone 5 mg tablet 5 mg PO Q6H PRN (Reason: pain (scale score 7-10)) Qty: 14 RF: 0
[2021-05-12 20:05] VITALS: O2SAT 95
[2021-05-12 20:09] LABS: MANUAL DIFF FLAG NO
[2021-05-12] MEDS: Pantoprazole Sodium 40 MG/10 ML VIAL IVPUSH (20:09)
[2021-05-12] MEDS: ondansetron HCL 4 MG/2 ML VIAL IVPUSH (20:10)
[2021-05-12 20:12] LABS: Basophils Percent Auto 0.2 % (0-2); Hematocrit 43.7 % (42.0-52.0); Hemoglobin 13.5 g/dl (14.0-18.0); Imm Gran Abs Auto 0.02 X10*3/uL (0.00-0.03); Imm Gran Pct Auto 0.2 % (0.0-0.4); Lymphocytes Absolute Auto 0.7 X10*3/uL (1.2-4.9); Lymphocytes Percent Auto 8.2 % (20-40); Mean Corpuscular HGB Conc 30.9 g/dl (31.0-36.0); Mean Corpuscular Hemoglobin 29.3 pg (27.0-33.0); Mean Corpuscular Volume 94.8 fL (80.0-98.0); Mean Platelet Volume 10.6 fL (9.4-12.4); Monocytes Absolute Auto 0.4 X10*3/uL (0.1-1.2); Monocytes Percent Auto 4.7 % (2-11); Neutrophils Absolute Auto 7.5 x10*3/uL (2.0-8.3); Neutrophils Percent Auto 86.7 % (45-73); Platelet Count 318 X10*3/uL (160-400); Red Blood Count 4.61 X10*6/uL (4.60-5.80); Red Cell Distribution Width 16.6 % (11.0-16.0); White Blood Count 8.7 X10*3/uL (4.8-10.8)
[2021-05-12 20:24] LABS: Alanine Aminotransferase 13 U/L (0-40); Albumin Level 4.5 g/dL (3.5-5.0); Alkaline Phosphatase 105 U/L (39-117); Anion Gap 27 (12-20); Aspartate Amino Transferase 24 U/L (5-37); Bilirubin Direct 0.2 mg/dL (0.0-0.5); Bilirubin Total 0.7 mg/dL (0.0-1.0); Blood Urea Nitrogen 21 mg/dL (9-16); Calcium 9.7 mg/dL (8.4-10.2); Carbon Dioxide 28 mmol/L (22-29); Chloride 91 mmol/L (96-108); Creatinine Clr Calc Pharmacy 11.3; Estimated Glomerular Filt Rate 11; Glucose Random 195 mg/dL (60-115); Magnesium 2.4 mg/dL (1.6-2.6); Potassium 4.1 mmol/L (3.3-5.1); Sodium 142 mmol/L (135-145); Total Protein 8.6 g/dL (6.5-8.0)
[2021-05-12 20:26] LABS: COVID-19 Test Negative (Negative)
[2021-05-12 20:28] LABS: Ethanol < 10 mg/dL
[2021-05-12 20:42] LABS: Phosphorus 2.9 mg/dL (2.7-4.5)
[2021-05-12 20:58] LABS: B Type Natriuretic Peptide 135 pg/mL (<100)
[2021-05-12 21:04] LABS: OBS Int Ctl Valid YES; OBS1 POSITIVE (NEGATIVE)
[2021-05-12 22:00] LABS: VBG HCO3 35 mmol/L (22-26); VBG pCO2 48 mmHg; VBG pH 7.47 (7.32-7.43); VBG pO2 45 mmHg
[2021-05-12 22:02] LABS: Prothrombin Time 11.6 SEC (9.9-13.0)
[2021-05-12 22:04] LABS: Venous Blood Gas Refer to POC result
[2021-05-12 22:05] LABS: Partial Thromboplastin Time 39.8 SEC (24.1-38.0)
--- NOTE | 2021-05-12 22:11 | PM.IMHP ---
History of Present Illness Date of Service: 05/12/21 Chief Complaint: bloody vomiting This 70-year-old male with past medical history of ESRD on dialysis, HTN, HLD who presents to the emergency department with complaints of coffee-ground emesis. Patient was in dialysis, completed his dialysis session, went, laid down, felt nauseous, had 3 episodes of coffee-ground emesis. Of note patient was admitted to the hospital on January with the same findings, and at that time found to have diskitis he was treated with IV antibiotics and IV ceftriaxone in-patient and sent home on ceftriaxone for 4 weeks. He also was seen by GI for the coffee-ground emesis which recommended continuing PPI. Patient denies taking any NSAIDs, he denies any abdominal pain, no melena, no hematochezia. He denies any back pain, no fever or chills, he denies any headache, no change in vision, no chest pain, no shortness of breath, no urinary symptoms and no lower extremity On arrival to the ED patient hemodynamically stable Labs are significant for WBC count of 8.7, hemoglobin of 13.5, sodium of 142, creatinine of 5.33, lactic acid of 3.3 a troponin of 41 that increased to 90. Patient denies any chest pain. COVID-19 negative, stool occult blood positive. Chest x-ray negative At this time will continue his PPI IV Will be admitted for further management Review of Systems Review of Systems: Yes all other systems are reviewed and are negative [facility] Medical History Acute upper gastrointestinal bleeding Amputation of left great toe CHF (congestive heart failure) Diabetes mellitus Discitis Discitis of lumbosacral region ESRD (end stage renal disease) GERD (gastroesophageal reflux disease) GI bleed HTN (hypertension) Hyperlipidemia Intractable back pain Presence of arteriovenous dialysis shunt Pertinent family history: No family history of cardiovascular disease Surgical History H/O hernia repair H/O shoulder surgery Social History Household Members: None Housing: House Do you presently have visiting nurse or other home services: Yes (automatic 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 for 6 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 a 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) Alcohol intake: never Patient Tobacco Use Status: Former Tobacco user Tobacco use type: Cigarette Second Hand Smoke Exposure: No Use of substances other than those prescribed or required for medical reasons: No Substance Use Type: Former Substance User Advance Directives: No Advance Directives Information Provided: No service: No Current occupational status: retired Meds Allergies Allergy/AdvReac Type Severity Reaction Status Date / Time metformin [METFORMIN] Allergy Intermediate IT MESSES Verified 02/01/21 19:25 ME UP Ygygwgl-JGH-XcF Reductase Allergy Intermediate NAUSEA Verified 02/01/21 19:25 Inhibitor [FXZOOBA-CNV-RHO REDUCTASE INHIBITOR] cephalexin [From KEFLEX] Allergy Unknown UNSPECIFIED Verified 02/01/21 19:25 IT MESSES ME UP any form of statin Allergy Unknown Unknown Uncoded 02/01/21 19:25 glucophage Allergy Unknown Diarrhea Uncoded 02/01/21 19:25 Active Medications: Current Medications Pharmacy Consult (Consult Rx Perform Med Rec) 1 each MISCELLANE ONCE PRN PRN Reason: Consult order Home Medications Medication Instructions Recorded Confirmed Last Taken Type aspirin 81 mg tablet,delayed 81 mg PO DAILY 03/30/20 05/12/21 03/30/20 History release megestrol 400 mg/10 mL (40 mg/mL) 400 mg PO DAILY 03/30/20 02/02/21 03/30/20 History oral suspension polyethylene glycol 3350 17 gram 17 g PO DAILY 03/30/20 05/12/21 03/30/20 History oral powder packet (Miralax) rosuvastatin 5 mg tablet (Crestor) 5 mg PO DAILY 03/30/20 05/12/21 03/30/20 History sevelamer carbonate 800 mg tablet 2,400 mg PO TIDWM 03/30/20 05/12/21 03/30/20 History (Renvela) ammonium lactate 12 % topical cream 1 appl TOPICAL BID PRN 01/29/21 05/12/21 Unknown History ondansetron HCl 4 mg tablet 1 tab PO BID PRN 01/29/21 05/12/21 Unknown History sevelamer carbonate 800 mg tablet 800 mg PO BID PRN 01/29/21 02/02/21 Unknown History Physical Exam Vital Signs and Narrative: Vital Signs: Last Vital Signs Resp 20 05/12/21 19:26 BP 126/61 05/12/21 19:26 Pulse Ox 95 05/12/21 20:05 Body Mass Index 20.6 Const: General: cooperative and no acute distress Orientation/consciousness: patient oriented x3 Eyes: General: appearance normal, both eyes and all related structures Pupils: Equal, round and reactive pupils present Resp: Effort & Inspection: normal respiratory effort Auscultation: clear to auscultation bilaterally Cardio: Rate: regular rate Rhythm: regular rhythm GI: Palpation (GI): Soft to palpation Auscultation: normal bowel sounds Skin: General skin exam: no rashes or lesions noted Neuro: General: patient oriented x3 Cranial nerves: Yes Equal, round and reactive pupils present Cognition (Neuro): normal cognition Extrem: General: Yes normal to inspection and Yes no pedal edema Results Labs CBC and Chem 7: 05/13/21 06:14 05/13/21 06:14 Labs: Laboratory Results - last 24 hr 05/12/21 05/12/21 05/12/21 19:49 19:49 20:03 MCV 94.8 MCH 29.3 MCHC 30.9 L RDW 16.6 H Plt Count 318 MPV 10.6 Immature Gran % (Auto) 0.2 Neut % (Auto) 86.7 H Lymph % (Auto) 8.2 L [place] % (Auto) 4.7 Eos % (Auto) 0.0 Baso % (Auto) 0.2 Lymph # (Auto) 0.7 L [place] # (Auto) 0.4 Eos # (Auto) 0.0 Baso # (Auto) 0.0 Abs Immat Gran (auto) 0.02 Absolute Neuts (auto) 7.5 Absolute Nucleated RBC 0.000 Nucleated RBC % (auto) 0.0 PT INR APTT VBG pH VBG pCO2 VBG pO2 VBG HCO3 VBG O2 Saturation VBG Base Excess Anion Gap 27 H Estim Creat Clear Calc 11.3 Estimated GFR 11 Random Glucose 195 H D Calcium 9.7 Phosphorus 2.9 Magnesium 2.4 Total Bilirubin 0.7 Direct Bilirubin 0.2 AST 24 ALT 13 Alkaline Phosphatase 105 D Troponin I High Sens 41.0 H* B-Natriuretic Peptide 135 H Total Protein 8.6 H D Albumin 4.5 D Stool Occult Blood Ethyl Alcohol COVID-19 (ERIKA) COVID-19 Clin Com 05/12/21 05/12/21 05/12/21 20:03 20:04 20:13 MCV MCH MCHC RDW Plt Count MPV Immature Gran % (Auto) Neut % (Auto) Lymph % (Auto) [place] % (Auto) Eos % (Auto) Baso % (Auto) Lymph # (Auto) [place] # (Auto) Eos # (Auto) Baso # (Auto) Abs Immat Gran (auto) Absolute Neuts (auto) Absolute Nucleated RBC Nucleated RBC % (auto) PT INR APTT VBG pH VBG pCO2 VBG pO2 VBG HCO3 VBG O2 Saturation VBG Base Excess Anion Gap Estim Creat Clear Calc Estimated GFR Random Glucose Calcium Cancelled Phosphorus Cancelled Magnesium Cancelled Total Bilirubin Direct Bilirubin AST ALT Alkaline Phosphatase Troponin I High Sens B-Natriuretic Peptide Total Protein Albumin Stool Occult Blood Ethyl Alcohol < 10 COVID-19 (ERIKA) Negative COVID-19 Clin Com See Note 05/12/21 05/12/21 05/12/21 20:44 21:49 21:53 MCV MCH MCHC RDW Plt Count MPV Immature Gran % (Auto) Neut % (Auto) Lymph % (Auto) [place] % (Auto) Eos % (Auto) Baso % (Auto) Lymph # (Auto) [place] # (Auto) Eos # (Auto) Baso # (Auto) Abs Immat Gran (auto) Absolute Neuts (auto) Absolute Nucleated RBC Nucleated RBC % (auto) PT 11.6 INR 1.0 APTT 39.8 H VBG pH 7.47 H VBG pCO2 48 VBG pO2 45 VBG HCO3 35 H VBG O2 Saturation 64.0 VBG Base Excess 10.0 Anion Gap Estim Creat Clear Calc Estimated GFR Random Glucose Calcium Phosphorus Magnesium Total Bilirubin Direct Bilirubin AST ALT Alkaline Phosphatase Troponin I High Sens B-Natriuretic Peptide Total Protein Albumin Stool Occult Blood POSITIVE Ethyl Alcohol COVID-19 (ERIKA) COVID-19 Clin Com Imaging Radiologist's Impressions: Impressions Chest X-Ray 05/12/21 20:01 IMPRESSION: Unremarkable examination. Abdomen/Pelvis CT 05/12/21 20:02 IMPRESSION: Worsening lucencies and irregularity at L5-S1 appear worsened compared to the CT on 01/27/2021. This is suspicious for progression of osteomyelitis/discitis. Assessment and Plan (1) Acute upper GI bleed: Status: Acute (2) Lactic acidosis: Status: Acute (3) Elevated troponin: Status: Acute 70-year-old male with past medical history of ESRD presents to the hospital with coffee-ground emesis # coffee-ground emesis - will continue IV PPI - denies use of NSAIDs - had a previous similar episodes, evaluated by GI, no intervention was done at that time - hemoglobin stable # lactic acidosis - no evidence of infection, patient is hypotensive, no hypoxia - will start him on IV fluids - follow lactic acid # elevated troponin - most likely secondary to ESRD - does not have any chest pain or EKG changes - monitor # ESRD - On dialysis - will consult Nephrology for dialysis and patient # hyperlipidemia - continue statin DVT prophylaxis: SCDs Quality Stroke Does the patient have a stroke diagnosis?: No VTE Prior VTE?: No VTE Risk Level:: Medical - moderate - high VTE Device Contraindication: N/A - Device Ordered VTE Drug Contraindication: Treatment Not Indicated
[2021-05-12 22:16] LABS: Lactic Acid 3.3 mmol/L (0.5-2.0)
[2021-05-12 23:33] VITALS: BP 119/54; PULSE 84; RESP 16; TEMP 35.9; O2SAT 100
--- NOTE | 2021-05-12 23:43 | PC.NURSE ---
patient was reposition in bed ,patient is in good spirits ,patient had apple juice and some ricci terry warm blanket given patient resting in bed .
[2021-05-12 23:44] LABS: Glucose, Whole Blood 172 mg/dL (60-115)
[2021-05-12 23:57] LABS: Reflex Lactate? Lactic Acid Added
--- NOTE | 2021-05-13 | ECG_ITS ---
Test Reason : HIGH TROPONIN Blood Pressure : / mmHG Vent. Rate : 077 BPM Atrial Rate : 077 BPM P-R Int : 188 ms QRS Dur : 150 ms QT Int : 428 ms P-R-T Axes : 050 -67 090 degrees QTc Int : 484 ms Normal sinus rhythm Right bundle branch block Left anterior fascicular block Bifascicular block Poor R wave progression Abnormal ECG When compared with ECG of 12-MAY-2021 19:26, Premature ventricular complexes are no longer Present Referred By: Deonna Serrano Electronically Signed By:EMELY DOVER MD
[2021-05-13 00:58] LABS: Lactic Acid 3.2 mmol/L (0.5-2.0)
[2021-05-13 01:00] LABS: Troponin-I High Sensitivity 90.2 ng/L (<3.5-35.0)
[2021-05-13] MEDS: Lactated Ringers 1,000 ML 100 ML IVCONT (02:27)
[2021-05-13 02:32] LABS: Reflex Lactate? Lactic Acid Added
--- NOTE | 2021-05-13 03:19 | PC.NURSE ---
patient resting comfortably on stretcher, awaiting bed assignment. alert and able to communicate needs. no distress noted. denies nausea and no episodes of vomiting. skin is dry and warm, offering no complaints at this time.
[2021-05-13 05:32] LABS: Reflex Lactate? 2 Y
[2021-05-13 06:00] VITALS: BP 110/54; PULSE 83; RESP 14; TEMP 36.1; O2SAT 96
[2021-05-13 06:19] LABS: MANUAL DIFF FLAG NO
[2021-05-13] MEDS: Pantoprazole Sodium 40 MG/10 ML VIAL IVPUSH ×2 (06:22→17:02)
[2021-05-13 06:33] LABS: ~Lactic Acid-LAB USE ONLY 2.9 mmol/L (0.5-2.0)
[2021-05-13 06:46] LABS: Anion Gap 23 (12-20); Blood Urea Nitrogen 30 mg/dL (9-16); Calcium 9.1 mg/dL (8.4-10.2); Carbon Dioxide 30 mmol/L (22-29); Chloride 91 mmol/L (96-108); Estimated Glomerular Filt Rate 9; Glucose Random 182 mg/dL (60-115); Potassium 4.1 mmol/L (3.3-5.1); Sodium 140 mmol/L (135-145)
[2021-05-13 07:03] LABS: Basophils Percent Auto 0.1 % (0-2); Hematocrit 37.9 % (42.0-52.0); Hemoglobin 12.3 g/dl (14.0-18.0); Imm Gran Abs Auto 0.03 X10*3/uL (0.00-0.03); Imm Gran Pct Auto 0.3 % (0.0-0.4); Lymphocytes Percent Auto 8.6 % (20-40); Mean Corpuscular HGB Conc 32.5 g/dl (31.0-36.0); Mean Corpuscular Hemoglobin 29.6 pg (27.0-33.0); Mean Corpuscular Volume 91.1 fL (80.0-98.0); Mean Platelet Volume 9.5 fL (9.4-12.4); Monocytes Absolute Auto 0.8 X10*3/uL (0.1-1.2); Neutrophils Absolute Auto 9.3 x10*3/uL (2.0-8.3); Platelet Count 317 X10*3/uL (160-400); Red Blood Count 4.16 X10*6/uL (4.60-5.80); Red Cell Distribution Width 16.1 % (11.0-16.0)
[2021-05-13 07:46] VITALS: BP 113/53; PULSE 78
[2021-05-13] MEDS: carvediloL 25 MG TABLET PO (07:46)
[2021-05-13] MEDS: polyethylene glycoL 3350 17 GM POWD.PACK PO (07:46)
[2021-05-13] MEDS: Sevelamer Carbonate Tablet 800 MG TABLET 2400 MG PO ×3 (07:48→17:02)
[2021-05-13 07:51] VITALS: BP 113/53; PULSE 80; RESP 14; O2SAT 96
[2021-05-13 08:12] LABS: Troponin-I High Sensitivity 74.3 ng/L (<3.5-35.0)
--- NOTE | 2021-05-13 08:22 | PC.NURSE ---
pt alert and oriented x4, vss. denies pain. no sob, no nausea, no abdominal pain. pt given breakfast. LR infusing without difficulty pt tolerating well. pt awaiting bed assignment.
[2021-05-13 08:30] LABS: C Reactive Protein 4.44 mg/dL (< or = 0.50)
--- NOTE | 2021-05-13 08:50 | PM.CNNEP ---
History of Present Illness Reason for Consult Consult date: 05/13/21 Reason for consult: 70-year-old male with past medical history of ESRD on dialysis, HTN, HLD Chief Complaint Chief complaint: GI Bleed Review of Systems Review of Systems Yes all other systems are reviewed and are negative [facility] Past Medical History Medical History Acute upper gastrointestinal bleeding Amputation of left great toe CHF (congestive heart failure) Diabetes mellitus Discitis Discitis of lumbosacral region ESRD (end stage renal disease) GERD (gastroesophageal reflux disease) GI bleed HTN (hypertension) Hyperlipidemia Intractable back pain Presence of arteriovenous dialysis shunt Family History Pertinent family history: No family history of cardiovascular disease Surgical History Surgical History H/O hernia repair H/O shoulder surgery Social History Social History Household Members: None Housing: House Do you presently have visiting nurse or other home services: Yes (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) Alcohol intake: never Patient Tobacco Use Status: Former Tobacco user Tobacco use type: Cigarette Second Hand Smoke Exposure: No Use of substances other than those prescribed or required for medical reasons: No Substance Use Type: Former Substance User Advance Directives: No Advance Directives Information Provided: No service: No Current occupational status: retired [employer] Allergies Allergy/AdvReac Type Severity Reaction Status Date / Time metformin [METFORMIN] Allergy Intermediate IT MESSES Verified 02/01/21 19:25 ME UP Holtxbg-[id number] Reductase Allergy Intermediate NAUSEA Verified 02/01/21 19:25 Inhibitor [[id number] REDUCTASE INHIBITOR] cephalexin [From KEFLEX] Allergy Unknown UNSPECIFIED Verified 02/01/21 19:25 IT MESSES ME UP any form of statin Allergy Unknown Unknown Uncoded 02/01/21 19:25 glucophage Allergy Unknown Diarrhea Uncoded 02/01/21 19:25 Active Medications: Current Medications Acetaminophen (Acetaminophen 325 Mg Tablet) 650 mg PO Q6H PRN PRN Reason: Pain, Mild (Pain Scale 1-3) Carvedilol (Carvedilol 25 Mg Tablet) 25 mg PO BID [facility]; Protocol Last Admin: 05/13/21 07:46 Dose: 25 mg Documented by: Lactated Ringer's (Lr) 1,000 mls @ 100 mls/hr IVCONT .Q10H [facility] Last Admin: 05/13/21 02:27 Dose: 100 mls/hr Documented by: Lactic Acid (Ammonium Lactate 12 % Cream 140 Gm Tube) 1 appl TOPICAL BID PRN; Protocol PRN Reason: Dry Skin Non-Formulary Medication (Rosuvastatin [Crestor]) 5 mg PO DAILY [facility] Ondansetron HCl (Ondansetron Hcl 4 Mg/2 Ml Vial) 4 mg IVPUSH Q8H PRN PRN Reason: Nausea and Vomiting Pantoprazole Sodium (Pantoprazole Sodium 40 Mg/10 Ml Vial) 40 mg IVPUSH BID@0630,1630 [facility] Last Admin: 05/13/21 06:22 Dose: 40 mg Documented by: Pharmacy Consult (Consult Rx Perform Med Rec) 1 each MISCELLANE ONCE PRN PRN Reason: Consult order Polyethylene Glycol (Polyethylene Glycol 3350 17 Gm Powd.Pack) 17 gm PO DAILY [facility] Last Admin: 05/13/21 07:46 Dose: 17 gm Documented by: Sevelamer Carbonate (Sevelamer Carbonate Tablet 800 Mg Tablet) 2,400 mg PO TIDWM [facility] Last Admin: 05/13/21 07:48 Dose: 2,400 mg Documented by: Sodium Chloride (0.9 % Sodium Chloride Flush 3 Ml Syringe) 3 ml IVFLUSH QSHIFT [facility] Last Admin: 05/13/21 08:47 Dose: Not Given Documented by: Home Medications Medication Instructions Recorded Confirmed Last Taken Type aspirin 81 mg tablet,delayed 81 mg PO DAILY 03/30/20 05/12/21 03/30/20 History release polyethylene glycol 3350 17 gram 17 g PO DAILY 03/30/20 05/12/21 03/30/20 History oral powder packet (Miralax) rosuvastatin 5 mg tablet (Crestor) 5 mg PO DAILY 03/30/20 05/12/21 03/30/20 History sevelamer carbonate 800 mg tablet 2,400 mg PO TIDWM 03/30/20 05/12/21 03/30/20 History (Renvela) ammonium lactate 12 % topical cream 1 appl TOPICAL BID PRN 01/29/21 05/12/21 Unknown History ondansetron HCl 4 mg tablet 1 tab PO BID PRN 01/29/21 05/12/21 Unknown History omeprazole 20 mg capsule,delayed 1 cap PO BID 05/13/21 05/13/21 Unknown History release Physical Exam Vital Signs: Last Vital Signs Temp 96.9 F 05/13/21 06:00 Pulse 80 05/13/21 07:51 Resp 14 05/13/21 07:51 BP 113/53 L 05/13/21 07:51 Pulse Ox 96 05/13/21 07:51 Body Mass Index 20.6 Const General: cooperative and no acute distress Orientation/consciousness: patient oriented x3 Eyes General: appearance normal, both eyes and all related structures Pupils: Equal, round and reactive pupils present Resp Effort & Inspection: normal respiratory effort Auscultation: clear to auscultation bilaterally Cardio Rate: regular rate Rhythm: regular rhythm GI Palpation (GI): Soft to palpation Auscultation: normal bowel sounds Skin General skin exam: no rashes or lesions noted Neuro General: patient oriented x3 Cranial nerves: Yes Equal, round and reactive pupils present Cognition (Neuro): normal cognition Extrem General: Yes normal to inspection and Yes no pedal edema Results Lab Results Result Diagrams: 05/13/21 06:14 05/13/21 06:14 Lab results: Chemistry 05/12/21 05/12/21 05/13/21 19:49 20:13 06:14 Sodium 142 140 Potassium 4.1 D 4.1 Carbon Dioxide 28 30 H BUN 21 H 30 H Creatinine 5.33 H* 6.03 H* Calcium 9.7 Cancelled 9.1 D Phosphorus 2.9 Cancelled Hematology 05/12/21 05/13/21 20:03 06:14 WBC 8.7 11.0 H Hgb 13.5 L 12.3 L Plt Count [id number] Assessment and Plan (1) Acute upper GI bleed: Status: Acute (2) Lactic acidosis: Status: Acute (3) Elevated troponin: Status: Acute (4) ESRD (end stage renal disease) on dialysis: Status: Acute 70-year-old male with past medical history of ESRD presents to the hospital with coffee-ground emesis # coffee-ground emesis - will continue IV PPI - denies use of NSAIDs - had a previous similar episodes, evaluated by GI, no intervention was done at that time - hemoglobin stable # lactic acidosis - no evidence of infection, patient is hypotensive, no hypoxia - will start him on IV fluids - follow lactic acid # elevated troponin - most likely secondary to ESRD - does not have any chest pain or EKG changes - monitor # ESRD - On dialysis t-th-sat - dialysis ordered # hyperlipidemia - continue statin DVT prophylaxis: SCDs Procedures Date of Service Date of Service: 05/13/21
--- NOTE | 2021-05-13 08:55 | P.CONNP_ITS ---
History of Present Illness Reason for Consult Consult date: 05/13/21 Reason for consult: ESRD pt Chief Complaint Chief complaint: GI Bleed Review of Systems Review of Systems Yes all other systems are reviewed and are negative [facility] Past Medical History Medical History Acute upper gastrointestinal bleeding Amputation of left great toe CHF (congestive heart failure) Diabetes mellitus Discitis Discitis of lumbosacral region ESRD (end stage renal disease) GERD (gastroesophageal reflux disease) GI bleed HTN (hypertension) Hyperlipidemia Intractable back pain Presence of arteriovenous dialysis shunt Family History Pertinent family history: No family history of cardiovascular disease Surgical History Surgical History H/O hernia repair H/O shoulder surgery Social History Social History Household Members: None Housing: House Do you presently have visiting nurse 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 home 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) Alcohol intake: never Patient Tobacco Use Status: Former Tobacco user Tobacco use type: Cigarette Second Hand Smoke Exposure: No Use of substances other than those prescribed or required for medical reasons: No Substance Use Type: Former Substance User Advance Directives: No Advance Directives Information Provided: No service: No Current occupational status: retired Meds Allergies Allergy/AdvReac Type Severity Reaction Status Date / Time metformin [METFORMIN] Allergy Intermediate IT MESSES Verified 02/01/21 19:25 ME UP Efncmbn-YNV-HuO Reductase Allergy Intermediate NAUSEA Verified 02/01/21 19:25 Inhibitor [[id number]-ADY REDUCTASE INHIBITOR] cephalexin [From KEFLEX] Allergy Unknown UNSPECIFIED Verified 02/01/21 19:25 IT MESSES ME UP any form of statin Allergy Unknown Unknown Uncoded 02/01/21 19:25 glucophage Allergy Unknown Diarrhea Uncoded 02/01/21 19:25 Active Medications: Current Medications Acetaminophen (Acetaminophen 325 Mg Tablet) 650 mg PO Q6H PRN PRN Reason: Pain, Mild (Pain Scale 1-3) Carvedilol (Carvedilol 25 Mg Tablet) 25 mg PO BID [facility]; Protocol Last Admin: 05/13/21 07:46 Dose: 25 mg Documented by: Lactated Ringer's (Lr) 1,000 mls @ 100 mls/hr IVCONT .Q10H [facility] Last Admin: 05/13/21 02:27 Dose: 100 mls/hr Documented by: Lactic Acid (Ammonium Lactate 12 % Cream 140 Gm Tube) 1 appl TOPICAL BID PRN; Protocol PRN Reason: Dry Skin Non-Formulary Medication (Rosuvastatin [Crestor]) 5 mg PO DAILY [facility] Ondansetron HCl (Ondansetron Hcl 4 Mg/2 Ml Vial) 4 mg IVPUSH Q8H PRN PRN Reason: Nausea and Vomiting Pantoprazole Sodium (Pantoprazole Sodium 40 Mg/10 Ml Vial) 40 mg IVPUSH BID@0630,1630 [facility] Last Admin: 05/13/21 06:22 Dose: 40 mg Documented by: Pharmacy Consult (Consult Rx Perform Med Rec) 1 each MISCELLANE ONCE PRN PRN Reason: Consult order Polyethylene Glycol (Polyethylene Glycol 3350 17 Gm Powd.Pack) 17 gm PO DAILY [facility] Last Admin: 05/13/21 07:46 Dose: 17 gm Documented by: Sevelamer Carbonate (Sevelamer Carbonate Tablet 800 Mg Tablet) 2,400 mg PO TIDWM [facility] Last Admin: 05/13/21 07:48 Dose: 2,400 mg Documented by: Sodium Chloride (0.9 % Sodium Chloride Flush 3 Ml Syringe) 3 ml IVFLUSH QSHIFT [facility] Last Admin: 05/13/21 08:47 Dose: Not Given Documented by: Home Medications Medication Instructions Recorded Confirmed Last Taken Type aspirin 81 mg tablet,delayed 81 mg PO DAILY 03/30/20 05/12/21 03/30/20 History release polyethylene glycol 3350 17 gram 17 g PO DAILY 03/30/20 05/12/21 03/30/20 History oral powder packet (Miralax) rosuvastatin 5 mg tablet (Crestor) 5 mg PO DAILY 03/30/20 05/12/21 03/30/20 History sevelamer carbonate 800 mg tablet 2,400 mg PO TIDWM 03/30/20 05/12/21 03/30/20 History (Renvela) ammonium lactate 12 % topical cream 1 appl TOPICAL BID PRN 01/29/21 05/12/21 Unknown History ondansetron HCl 4 mg tablet 1 tab PO BID PRN 01/29/21 05/12/21 Unknown History omeprazole 20 mg capsule,delayed 1 cap PO BID 05/13/21 05/13/21 Unknown History release Physical Exam Vital Signs: Last Vital Signs Temp 96.9 F 05/13/21 06:00 Pulse 80 05/13/21 07:51 Resp 14 05/13/21 07:51 BP 113/53 L 05/13/21 07:51 Pulse Ox 96 05/13/21 07:51 Body Mass Index 20.6 Const General: cooperative and no acute distress Orientation/consciousness: patient oriented x3 Eyes General: appearance normal, both eyes and all related structures Pupils: Equal, round and reactive pupils present Resp Effort & Inspection: normal respiratory effort Auscultation: clear to auscultation bilaterally Cardio Rate: regular rate Rhythm: regular rhythm GI Palpation (GI): Soft to palpation Auscultation: normal bowel sounds Skin General skin exam: no rashes or lesions noted Neuro General: patient oriented x3 Cranial nerves: Yes Equal, round and reactive pupils present Cognition (Neuro): normal cognition Extrem General: Yes normal to inspection and Yes no pedal edema Results Lab Results Result Diagrams: 05/13/21 06:14 05/13/21 06:14 Lab results: Chemistry 05/12/21 05/12/21 05/13/21 19:49 20:13 06:14 Sodium 142 140 Potassium 4.1 D 4.1 Carbon Dioxide 28 30 H BUN 21 H 30 H Creatinine 5.33 H* 6.03 H* Calcium 9.7 Cancelled 9.1 D Phosphorus 2.9 Cancelled Hematology 05/12/21 05/13/21 20:03 06:14 WBC 8.7 11.0 H Hgb 13.5 L 12.3 L Plt Count [id number] Assessment and Plan (1) Acute upper GI bleed: Status: Acute (2) Lactic acidosis: Status: Acute (3) Elevated troponin: Status: Acute (4) ESRD (end stage renal disease) on dialysis: Status: Acute 70-year-old male with past medical history of ESRD presents to the hospital with coffee-ground emesis # coffee-ground emesis - will continue IV PPI - denies use of NSAIDs - had a previous similar episodes, evaluated by GI, no intervention was done at that time - hemoglobin stable # lactic acidosis - no evidence of infection, patient is hypotensive, no hypoxia - will start him on IV fluids - follow lactic acid # elevated troponin - most likely secondary to ESRD - does not have any chest pain or EKG changes - monitor # ESRD - On dialysis t-th-sat - dialysis ordered # hyperlipidemia - continue statin DVT prophylaxis: SCDs Procedures Date of Service Date of Service: 05/13/21
--- NOTE | 2021-05-13 10:44 | PM.CNCAR ---
History of Present Illness History of Present Illness Date of Service: 05/13/21 Requesting physician: Deonna Serrano Chief complaint: GI Bleed, + troponin Narrative: Pleasant 70-year-old gentleman who has background history of end-stage renal disease and previous history of GI bleed who is presenting for upper GI bleed and elevated troponin levels. Discussing with him he said he had no chest discomfort shortness of breath. He came back from dialysis and then had episode where he threw up blood. Denies any symptoms right now. High sensitivity troponin level of 90. 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) Alcohol intake: never Patient Tobacco Use Status: Former Tobacco user Tobacco use type: Cigarette Second Hand Smoke Exposure: No Use of substances other than those prescribed or required for medical reasons: No Substance Use Type: Former Substance User Advance Directives: No Advance Directives Information Provided: No service: No Current occupational status: retired Meds Allergies Allergy/AdvReac Type Severity Reaction Status Date / Time metformin [METFORMIN] Allergy Intermediate IT MESSES Verified 02/01/21 19:25 ME UP Hnuwwel-IWL-JuU Reductase Allergy Intermediate NAUSEA Verified 02/01/21 19:25 Inhibitor [[id number] REDUCTASE INHIBITOR] cephalexin [From KEFLEX] Allergy Unknown UNSPECIFIED Verified 02/01/21 19:25 IT MESSES ME UP any form of statin Allergy Unknown Unknown Uncoded 02/01/21 19:25 glucophage Allergy Unknown Diarrhea Uncoded 02/01/21 19:25 Active Medications: Current Medications Acetaminophen (Acetaminophen 325 Mg Tablet) 650 mg PO Q6H PRN PRN Reason: Pain, Mild (Pain Scale 1-3) Carvedilol (Carvedilol 25 Mg Tablet) 25 mg PO BID [facility]; Protocol Last Admin: 05/13/21 07:46 Dose: 25 mg Documented by: Lactated Ringer's (Lr) 1,000 mls @ 100 mls/hr IVCONT .Q10H [facility] Last Admin: 05/13/21 02:27 Dose: 100 mls/hr Documented by: Lactic Acid (Ammonium Lactate 12 % Cream 140 Gm Tube) 1 appl TOPICAL BID PRN; Protocol PRN Reason: Dry Skin Non-Formulary Medication (Rosuvastatin [Crestor]) 5 mg PO DAILY [facility] Ondansetron HCl (Ondansetron Hcl 4 Mg/2 Ml Vial) 4 mg IVPUSH Q8H PRN PRN Reason: Nausea and Vomiting Pantoprazole Sodium (Pantoprazole Sodium 40 Mg/10 Ml Vial) 40 mg IVPUSH BID@0630,1630 [facility] Last Admin: 05/13/21 06:22 Dose: 40 mg Documented by: Pharmacy Consult (Consult Rx Perform Med Rec) 1 each MISCELLANE ONCE PRN PRN Reason: Consult order Polyethylene Glycol (Polyethylene Glycol 3350 17 Gm Powd.Pack) 17 gm PO DAILY [facility] Last Admin: 05/13/21 07:46 Dose: 17 gm Documented by: Sevelamer Carbonate (Sevelamer Carbonate Tablet 800 Mg Tablet) 2,400 mg PO TIDWM [facility] Last Admin: 05/13/21 07:48 Dose: 2,400 mg Documented by: Sodium Chloride (0.9 % Sodium Chloride Flush 3 Ml Syringe) [facility] Last Admin: 05/13/21 08:47 Dose: Not Given Documented by: Home Medications Medication Instructions Recorded Confirmed Last Taken Type aspirin 81 mg tablet,delayed 81 mg PO DAILY 03/30/20 05/12/21 03/30/20 History release polyethylene glycol 3350 17 gram 17 g PO DAILY 03/30/20 05/12/21 03/30/20 History oral powder packet (Miralax) rosuvastatin 5 mg tablet (Crestor) 5 mg PO DAILY 03/30/20 05/12/21 03/30/20 History sevelamer carbonate 800 mg tablet 2,400 mg PO TIDWM 03/30/20 05/12/21 03/30/20 History (Renvela) ammonium lactate 12 % topical cream 1 appl TOPICAL BID PRN 01/29/21 05/12/21 Unknown History ondansetron HCl 4 mg tablet 1 tab PO BID PRN 01/29/21 05/12/21 Unknown History omeprazole 20 mg capsule,delayed 1 cap PO BID 05/13/21 05/13/21 Unknown History release Physical Exam Vital Signs: Vital Signs: Last Vital Signs Temp 96.9 F 05/13/21 06:00 Pulse 80 05/13/21 07:51 Resp 14 05/13/21 07:51 BP 113/53 L 05/13/21 07:51 Pulse Ox 96 05/13/21 07:51 Body Mass Index 20.6 GENERAL APPEARANCE: in no acute distress, pleasant. NECK: no carotid bruit, no jugular venous distention. SKIN: no suspicious lesions, warm and dry. HEART: no murmurs, regular rate and rhythm. LUNGS: clear to auscultation bilaterally. ABDOMEN: soft, nontender. EXTREMITIES: no edema. PERIPHERAL PULSES: equal. NEUROLOGIC: No gross deficits, AAO X 3 Objective Labs and Meds Result diagrams: 05/13/21 06:14 05/13/21 06:14 Lab results: Laboratory Results - last 24 hr 05/12/21 05/12/21 05/12/21 19:49 19:49 20:03 WBC 8.7 RBC 4.61 Hgb 13.5 L Hct 43.7 MCV 94.8 MCH 29.3 MCHC 30.9 L RDW 16.6 H Plt Count 318 MPV 10.6 Immature Gran % (Auto) 0.2 Neut % (Auto) 86.7 H Lymph % (Auto) 8.2 L [place] % (Auto) 4.7 Eos % (Auto) 0.0 Baso % (Auto) 0.2 Lymph # (Auto) 0.7 L [place] # (Auto) 0.4 Eos # (Auto) 0.0 Baso # (Auto) 0.0 Abs Immat Gran (auto) 0.02 Absolute Neuts (auto) 7.5 Absolute Nucleated RBC 0.000 Nucleated RBC % (auto) 0.0 PT INR APTT VBG pH VBG pCO2 VBG pO2 VBG HCO3 VBG O2 Saturation VBG Base Excess Sodium 142 Potassium 4.1 D Chloride 91 L Carbon Dioxide 28 Anion Gap 27 H BUN 21 H Creatinine 5.33 H* Estim Creat Clear Calc 11.3 Estimated GFR 11 POC Glucose Random Glucose 195 H D Lactic Acid Lactic Acid Fup @ 2Hr Lactic Acid Fup @ 4Hr Calcium 9.7 Phosphorus 2.9 Magnesium 2.4 Total Bilirubin 0.7 Direct Bilirubin 0.2 AST 24 ALT 13 Alkaline Phosphatase 105 D Troponin I High Sens 41.0 H* C-Reactive Protein B-Natriuretic Peptide 135 H Total Protein 8.6 H D Albumin 4.5 D Stool Occult Blood Ethyl Alcohol COVID-19 (ERIKA) COVID-[employer] Com Blood Type Antibody Screen 05/12/21 05/12/21 05/12/21 20:03 20:04 20:13 WBC RBC Hgb Hct MCV MCH MCHC RDW Plt Count MPV Immature Gran % (Auto) Neut % (Auto) Lymph % (Auto) Cedar % (Auto) Eos % (Auto) Baso % (Auto) Lymph # (Auto) Cedar # (Auto) Eos # (Auto) Baso # (Auto) Abs Immat Gran (auto) Absolute Neuts (auto) Absolute Nucleated RBC Nucleated RBC % (auto) PT INR APTT VBG pH VBG pCO2 VBG pO2 VBG HCO3 VBG O2 Saturation VBG Base Excess Sodium Potassium Chloride Carbon Dioxide Anion Gap BUN Creatinine Estim Creat Clear Calc Estimated GFR POC Glucose Random Glucose Lactic Acid Lactic Acid Fup @ 2Hr Lactic Acid Fup @ 4Hr Calcium Cancelled Phosphorus Cancelled Magnesium Cancelled Total Bilirubin Direct Bilirubin AST ALT Alkaline Phosphatase Troponin I High Sens C-Reactive Protein B-Natriuretic Peptide Total Protein Albumin Stool Occult Blood Ethyl Alcohol < 10 COVID-19 (ERIKA) Negative COVID-[employer] See Note Blood Type Antibody Screen 05/12/21 05/12/21 05/12/21 20:44 21:49 21:49 WBC RBC Hgb Hct MCV MCH MCHC RDW Plt Count MPV Immature Gran % (Auto) Neut % (Auto) Lymph % (Auto) Cedar % (Auto) Eos % (Auto) Baso % (Auto) Lymph # (Auto) Cedar # (Auto) Eos # (Auto) Baso # (Auto) Abs Immat Gran (auto) Absolute Neuts (auto) Absolute Nucleated RBC Nucleated RBC % (auto) PT 11.6 INR 1.0 APTT 39.8 H VBG pH VBG pCO2 VBG pO2 VBG HCO3 VBG O2 Saturation VBG Base Excess Sodium Potassium Chloride Carbon Dioxide Anion Gap BUN Creatinine Estim Creat Clear Calc Estimated GFR POC Glucose Random Glucose Lactic Acid 3.3 H* Lactic Acid Fup @ 2Hr Lactic Acid Fup @ 4Hr Calcium Phosphorus Magnesium Total Bilirubin Direct Bilirubin AST ALT Alkaline Phosphatase Troponin I High Sens C-Reactive Protein B-Natriuretic Peptide Total Protein Albumin Stool Occult Blood POSITIVE Ethyl Alcohol COVID-19 (ERIKA) COVID-19 [facility] Blood Type Antibody Screen 05/12/21 05/12/21 05/12/21 21:49 21:53 23:39 WBC RBC Hgb Hct MCV MCH MCHC RDW Plt Count MPV Immature Gran % (Auto) Neut % (Auto) Lymph % (Auto) Cedar % (Auto) Eos % (Auto) Baso % (Auto) Lymph # (Auto) Cedar # (Auto) Eos # (Auto) Baso # (Auto) Abs Immat Gran (auto) Absolute Neuts (auto) Absolute Nucleated RBC Nucleated RBC % (auto) PT INR APTT VBG pH 7.47 H VBG pCO2 48 VBG pO2 45 VBG HCO3 35 H VBG O2 Saturation 64.0 VBG Base Excess 10.0 Sodium Potassium Chloride Carbon Dioxide Anion Gap BUN Creatinine Estim Creat Clear Calc Estimated GFR POC Glucose 172 H Random Glucose Lactic Acid Lactic Acid Fup @ 2Hr Lactic Acid Fup @ 4Hr Calcium Phosphorus Magnesium Total Bilirubin Direct Bilirubin AST ALT Alkaline Phosphatase Troponin I High Sens C-Reactive Protein B-Natriuretic Peptide Total Protein Albumin Stool Occult Blood Ethyl Alcohol COVID-19 (ERIKA) COVID-19 [facility] Blood Type O Positive Antibody Screen NEGATIVE 05/13/21 05/13/21 05/13/21 00:26 00:26 03:26 WBC RBC Hgb Hct MCV MCH MCHC RDW Plt Count MPV Immature Gran % (Auto) Neut % (Auto) Lymph % (Auto) Cedar % (Auto) Eos % (Auto) Baso % (Auto) Lymph # (Auto) Cedar # (Auto) Eos # (Auto) Baso # (Auto) Abs Immat Gran (auto) Absolute Neuts (auto) Absolute Nucleated RBC Nucleated RBC % (auto) PT INR APTT VBG pH VBG pCO2 VBG pO2 VBG HCO3 VBG O2 Saturation VBG Base Excess Sodium Potassium Chloride Carbon Dioxide Anion Gap BUN Creatinine Estim Creat Clear Calc Estimated GFR POC Glucose Random Glucose Lactic Acid 3.2 H* Lactic Acid Fup @ 2Hr 4.0 H* Lactic Acid Fup @ 4Hr Calcium Phosphorus Magnesium Total Bilirubin Direct Bilirubin AST ALT Alkaline Phosphatase Troponin I High Sens 90.2 H* D C-Reactive Protein B-Natriuretic Peptide Total Protein Albumin Stool Occult Blood Ethyl Alcohol COVID-19 (ERIKA) [facility]yo [facility] Blood Type Antibody Screen 05/13/21 05/13/21 05/13/21 06:14 06:14 06:14 WBC 11.0 H RBC 4.16 L Hgb 12.3 L Hct 37.9 L MCV 91.1 MCH 29.6 MCHC 32.5 RDW 16.1 H Plt Count 317 MPV 9.5 Immature Gran % (Auto) 0.3 Neut % (Auto) 84.0 H Lymph % (Auto) 8.6 L [place] % (Auto) 7.0 Eos % (Auto) 0.0 Baso % (Auto) 0.1 Lymph # (Auto) 1.0 L [place] # (Auto) 0.8 Eos # (Auto) 0.0 Baso # (Auto) 0.0 Abs Immat Gran (auto) 0.03 Absolute Neuts (auto) 9.3 H Absolute Nucleated RBC 0.000 Nucleated RBC % (auto) 0.0 PT INR APTT VBG pH VBG pCO2 VBG pO2 VBG HCO3 VBG O2 Saturation VBG Base Excess Sodium 140 Potassium 4.1 Chloride 91 L Carbon Dioxide 30 H Anion Gap 23 H BUN 30 H Creatinine 6.03 H* Estim Creat Clear Calc 10.0 Estimated GFR 9 POC Glucose Random Glucose 182 H Lactic Acid Lactic Acid Fup @ 2Hr Lactic Acid Fup @ 4Hr 2.9 H* Calcium 9.1 D Phosphorus Magnesium Total Bilirubin Direct Bilirubin AST ALT Alkaline Phosphatase Troponin I High Sens C-Reactive Protein 4.44 H B-Natriuretic Peptide Total Protein Albumin Stool Occult Blood Ethyl Alcohol COVID-19 (ERIKA) COVID-19 [facility] Blood Type Antibody Screen 05/13/21 07:19 WBC RBC Hgb Hct MCV MCH MCHC RDW Plt Count MPV Immature Gran % (Auto) Neut % (Auto) Lymph % (Auto) Cedar % (Auto) Eos % (Auto) Baso % (Auto) Lymph # (Auto) Cedar # (Auto) Eos # (Auto) Baso # (Auto) Abs Immat Gran (auto) Absolute Neuts (auto) Absolute Nucleated RBC Nucleated RBC % (auto) PT INR APTT VBG pH VBG pCO2 VBG pO2 VBG HCO3 VBG O2 Saturation VBG Base Excess Sodium Potassium Chloride Carbon Dioxide Anion Gap BUN Creatinine Estim Creat Clear Calc Estimated GFR POC Glucose Random Glucose Lactic Acid Lactic Acid Fup @ 2Hr Lactic Acid Fup @ 4Hr Calcium Phosphorus Magnesium Total Bilirubin Direct Bilirubin AST ALT Alkaline Phosphatase Troponin I High Sens 74.3 H* C-Reactive Protein B-Natriuretic Peptide Total Protein Albumin Stool Occult Blood Ethyl Alcohol COVID-19 (REIKA) COVID-19 Clin Com Blood Type Antibody Screen Imaging Radiologist's impression: Impressions Chest X-Ray 05/12/21 20:01 IMPRESSION: Unremarkable examination. Abdomen/Pelvis CT 05/12/21 20:02 IMPRESSION: Worsening lucencies and irregularity at L5-S1 appear worsened compared to the CT on 01/27/2021. This is suspicious for progression of osteomyelitis/discitis. Assessment and Plan (1) Elevated troponin: Status: Acute Pleasant 70-year-old gentleman who is presenting for upper GI bleed. He has mildly elevated troponin levels. EKG showing sinus rhythm with bifascicular block. No dynamic changes are noted. He has no chest discomfort shortness of breath. I think troponin levels are due to end-stage renal disease. Clinically not acute coronary syndrome. Please treat for the upper GI bleed. No further workup is required inpatient. Thank you for allowing me to participate in the care of your patient. Please feel free to contact me if you have any questions. Procedures Date of Service Date of Service: 05/13/21
--- NOTE | 2021-05-13 12:27 | P.PNIM_ITS ---
Subjective Subjective Date of Service: 05/13/21 Interval History: no further coffee ground emesis no abd pain no chest pain no fever no back pain Review of Systems Review of Systems: Yes all other systems are reviewed and are negative Physical Exam Vital Signs: Vital Signs: Last Vital Signs Temp 96.9 F 05/13/21 06:00 Pulse 80 05/13/21 07:51 Resp 14 05/13/21 07:51 BP 113/53 L 05/13/21 07:51 Pulse Ox 96 05/13/21 07:51 Body Mass Index 20.6 Gen: in no acute distress HEENT: sclera anicteric, moist mucus membranes Neck: supple Lungs: clear to auscultation bilaterally Heart: regular rate and rhythm, no murmurs Abd: soft, non-tender, non-distended Ext: no edema Skin: warm/well-perfused Neuro: alert and oriented x3, no focal findings Psych: appropriate affect Objective Data Active Medications Acetaminophen (Acetaminophen 325 Mg Tablet) 650 mg PO Q6H PRN PRN Reason: Pain, Mild (Pain Scale 1-3) Carvedilol (Carvedilol 25 Mg Tablet) 25 mg PO BID [facility]; Protocol Last Admin: 05/13/21 07:46 Dose: 25 mg Documented by: JOSE RAUL Lactated Ringer's (Lr) 1,000 mls @ 100 mls/hr IVCONT .Q10H [facility] Last Admin: 05/13/21 12:21 Dose: Not Given Documented by: JOSE RAUL Non-Admin Reason: Physician Held Med Lactic Acid (Ammonium Lactate 12 % Cream 140 Gm Tube) 1 appl TOPICAL BID PRN; Protocol PRN Reason: Dry Skin Non-Formulary Medication (Rosuvastatin [Crestor]) 5 mg PO DAILY [facility] Ondansetron HCl (Ondansetron Hcl 4 Mg/2 Ml Vial) 4 mg IVPUSH Q8H PRN PRN Reason: Nausea and Vomiting Pantoprazole Sodium (Pantoprazole Sodium 40 Mg/10 Ml Vial) 40 mg IVPUSH BI D@0630,1630 [facility] Last Admin: 05/13/21 06:22 Dose: 40 mg Documented by: KAELYN Pharmacy Consult (Consult Rx Perform Med Rec) 1 each MISCELLANE ONCE PRN PRN Reason: Consult order Polyethylene Glycol (Polyethylene Glycol 3350 17 Gm Powd.Pack) 17 gm PO DAILY [facility] Last Admin: 05/13/21 07:46 Dose: 17 gm Documented by: JOSE RAUL Sevelamer Carbonate (Sevelamer Carbonate Tablet 800 Mg Tablet) 2,400 mg PO TIDWM [facility] Last Admin: 05/13/21 07:48 Dose: 2,400 mg Documented by: JOSE RAUL Sodium Chloride (0.9 % Sodium Chloride Flush 3 Ml Syringe) 3 ml IVFLUSH QSHIFT [facility] Last Admin: 05/13/21 08:47 Dose: Not Given Documented by: JOSE RAUL Non-Admin Reason: IV Running Labs CBC & Chem 7: 05/13/21 06:14 05/13/21 06:14 Labs: Laboratory Results - last 24 hr 05/12/21 05/12/21 05/12/21 19:49 19:49 20:03 MCV 94.8 MCH 29.3 MCHC 30.9 L RDW 16.6 H Plt Count 318 MPV 10.6 Immature Gran % (Auto) 0.2 Neut % (Auto) 86.7 H Lymph % (Auto) 8.2 L [place] % (Auto) 4.7 Eos % (Auto) 0.0 Baso % (Auto) 0.2 Lymph # (Auto) 0.7 L [place] # (Auto) 0.4 Eos # (Auto) 0.0 Baso # (Auto) 0.0 Abs Immat Gran (auto) 0.02 Absolute Neuts (auto) 7.5 Absolute Nucleated RBC 0.000 Nucleated RBC % (auto) 0.0 PT INR APTT VBG pH VBG pCO2 VBG pO2 VBG HCO3 VBG O2 Saturation VBG Base Excess Anion Gap 27 H Estim Creat Clear Calc 11.3 Estimated GFR 11 POC Glucose Random Glucose 195 H D Lactic Acid Lactic Acid Fup @ 2Hr Lactic Acid Fup @ 4Hr Calcium 9.7 Phosphorus 2.9 Magnesium 2.4 Total Bilirubin 0.7 Direct Bilirubin 0.2 AST 24 ALT 13 Alkaline Phosphatase 105 D Troponin I High Sens 41.0 H* C-Reactive Protein B-Natriuretic Peptide 135 H Total Protein 8.6 H D Albumin 4.5 D Stool Occult Blood Ethyl Alcohol COVID-19 (ERIKA) COVID-19 Clin Com Blood Type Antibody Screen 05/12/21 05/12/21 05/12/21 20:03 20:04 20:13 MCV MCH MCHC RDW Plt Count MPV Immature Gran % (Auto) Neut % (Auto) Lymph % (Auto) [place] % (Auto) Eos % (Auto) Baso % (Auto) Lymph # (Auto) [place] # (Auto) Eos # (Auto) Baso # (Auto) Abs Immat Gran (auto) Absolute Neuts (auto) Absolute Nucleated RBC Nucleated RBC % (auto) PT INR APTT VBG pH VBG pCO2 VBG pO2 VBG HCO3 VBG O2 Saturation VBG Base Excess Anion Gap Estim Creat Clear Calc Estimated GFR POC Glucose Random Glucose Lactic Acid Lactic Acid Fup @ 2Hr Lactic Acid Fup @ 4Hr Calcium Cancelled Phosphorus Cancelled Magnesium Cancelled Total Bilirubin Direct Bilirubin AST ALT Alkaline Phosphatase Troponin I High Sens C-Reactive Protein B-Natriuretic Peptide Total Protein Albumin Stool Occult Blood Ethyl Alcohol < 10 COVID-19 (ERIKA) Negative [facility] See Note Blood Type Antibody Screen 05/12/21 05/12/21 05/12/21 20:44 21:49 21:49 MCV MCH MCHC RDW Plt Count MPV Immature Gran % (Auto) Neut % (Auto) Lymph % (Auto) [place] % (Auto) Eos % (Auto) Baso % (Auto) Lymph # (Auto) [place] # (Auto) Eos # (Auto) Baso # (Auto) Abs Immat Gran (auto) Absolute Neuts (auto) Absolute Nucleated RBC Nucleated RBC % (auto) PT 11.6 INR 1.0 APTT 39.8 H VBG pH VBG pCO2 VBG pO2 VBG HCO3 VBG O2 Saturation VBG Base Excess Anion Gap Estim Creat Clear Calc Estimated GFR POC Glucose Random Glucose Lactic Acid 3.3 H* Lactic Acid Fup @ 2Hr Lactic Acid Fup @ 4Hr Calcium Phosphorus Magnesium Total Bilirubin Direct Bilirubin AST ALT Alkaline Phosphatase Troponin I High Sens C-Reactive Protein B-Natriuretic Peptide Total Protein Albumin Stool Occult Blood POSITIVE Ethyl Alcohol COVID-19 ([facility]IKA) [facility] Blood Type Antibody Screen 05/12/21 05/12/21 05/12/21 21:49 21:53 23:39 MCV MCH MCHC RDW Plt Count MPV Immature Gran % (Auto) Neut % (Auto) Lymph % (Auto) [place] % (Auto) Eos % (Auto) Baso % (Auto) Lymph # (Auto) [place] # (Auto) Eos # (Auto) Baso # (Auto) Abs Immat Gran (auto) Absolute Neuts (auto) Absolute Nucleated RBC Nucleated RBC % (auto) PT INR APTT VBG pH 7.47 H VBG pCO2 48 VBG pO2 45 VBG HCO3 35 H VBG O2 Saturation 64.0 VBG Base Excess 10.0 Anion Gap Estim Creat Clear Calc Estimated GFR POC Glucose 172 H Random Glucose Lactic Acid Lactic Acid Fup @ 2Hr Lactic Acid Fup @ 4Hr Calcium Phosphorus Magnesium Total Bilirubin Direct Bilirubin AST ALT Alkaline Phosphatase Troponin I High Sens C-Reactive Protein B-Natriuretic Peptide Total Protein Albumin Stool Occult Blood Ethyl Alcohol COVID-19 (ERIKA) [employer] Blood Type O Positive Antibody Screen NEGATIVE 05/13/21 05/13/21 05/13/21 00:26 00:26 03:26 MCV MCH MCHC RDW Plt Count MPV Immature Gran % (Auto) Neut % (Auto) Lymph % (Auto) [place] % (Auto) Eos % (Auto) Baso % (Auto) Lymph # (Auto) [place] # (Auto) Eos # (Auto) Baso # (Auto) Abs Immat Gran (auto) Absolute Neuts (auto) Absolute Nucleated RBC Nucleated RBC % (auto) PT INR APTT VBG pH VBG pCO2 VBG pO2 VBG HCO3 VBG O2 Saturation VBG Base Excess Anion Gap Estim Creat Clear Calc Estimated GFR POC Glucose Random Glucose Lactic Acid 3.2 H* Lactic Acid Fup @ 2Hr 4.0 H* Lactic Acid Fup @ 4Hr Calcium Phosphorus Magnesium Total Bilirubin Direct Bilirubin AST ALT Alkaline Phosphatase Troponin I High Sens 90.2 H* D C-Reactive Protein B-Natriuretic Peptide Total Protein Albumin Stool Occult Blood Ethyl Alcohol COVID-19 (ERIKA) [employer] Blood Type Antibody Screen 05/13/21 05/13/21 05/13/21 06:14 06:14 06:14 MCV 91.1 MCH 29.6 MCHC 32.5 RDW 16.1 H Plt Count 317 MPV 9.5 Immature Gran % (Auto) 0.3 Neut % (Auto) 84.0 H Lymph % (Auto) 8.6 L [place] % (Auto) 7.0 Eos % (Auto) 0.0 Baso % (Auto) 0.1 Lymph # (Auto) 1.0 L [place] # (Auto) 0.8 Eos # (Auto) 0.0 Baso # (Auto) 0.0 Abs Immat Gran (auto) 0.03 Absolute Neuts (auto) 9.3 H Absolute Nucleated RBC 0.000 Nucleated RBC % (auto) 0.0 PT INR APTT VBG pH VBG pCO2 VBG pO2 VBG HCO3 VBG O2 Saturation VBG Base Excess Anion Gap 23 H Estim Creat Clear Calc 10.0 Estimated GFR 9 POC Glucose Random Glucose 182 H Lactic Acid Lactic Acid Fup @ 2Hr Lactic Acid Fup @ 4Hr 2.9 H* Calcium 9.1 D Phosphorus Magnesium Total Bilirubin Direct Bilirubin AST ALT Alkaline Phosphatase Troponin I High Sens C-Reactive Protein 4.44 H B-Natriuretic Peptide Total Protein Albumin Stool Occult Blood Ethyl Alcohol COVID-19 (ERIKA) [employer] Blood Type Antibody Screen 05/13/21 07:19 MCV MCH MCHC RDW Plt Count MPV Immature Gran % (Auto) Neut % (Auto) Lymph % (Auto) [place] % (Auto) Eos % (Auto) Baso % (Auto) Lymph # (Auto) [place] # (Auto) Eos # (Auto) Baso # (Auto) Abs Immat Gran (auto) Absolute Neuts (auto) Absolute Nucleated RBC Nucleated RBC % (auto) PT INR APTT VBG pH VBG pCO2 VBG pO2 VBG HCO3 VBG O2 Saturation VBG Base Excess Anion Gap Estim Creat Clear Calc Estimated GFR POC Glucose Random Glucose Lactic Acid Lactic Acid Fup @ 2Hr Lactic Acid Fup @ 4Hr Calcium Phosphorus Magnesium Total Bilirubin Direct Bilirubin AST ALT Alkaline Phosphatase Troponin I High Sens 74.3 H* C-Reactive Protein B-Natriuretic Peptide Total Protein Albumin Stool Occult Blood Ethyl Alcohol COVID-19 (ERIKA) [facility] Blood Type Antibody Screen Assessment and Plan (1) Acute upper GI bleed: Status: Acute Assessment and Plan: ? 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 IV PPI. GI consult. # lactic acidosis - improving, d/c IV fluids # troponin elevation - no ischemic changes on EKG and no symptoms; likely due to ESRD # ESRD on HD MWF - Nephro consult - continue sevelamer # HLD - continue statin # HTN - continue carvedilol # VTE ppx - SCDs Quality Stroke Does the patient have a stroke diagnosis?: No VTE Prior VTE?: No VTE Risk Level:: Medical - moderate - high VTE Device Contraindication: N/A - Device Ordered VTE Drug Contraindication: Treatment Not Indicated
--- NOTE | 2021-05-13 12:35 | PC.NURSE ---
report given to DAVID Gastelum. pt will be transported to room 359 by registered nurse step down. pt alert and oriented, denies pain. no complaints.
--- NOTE | 2021-05-13 12:40 | PM.GICN ---
History of Present Illness Data of Consult Service Date: 05/13/21 Requesting physician: Jay Stallings Primary Care Provider: Unknown Physician HPI Reason for consult: GI Bleeding 70 YM with ESRD on HD, HTN, HLD seen [place] [facility] [place] 05[place]12[place]21 with coffee-ground emesis.? Patient was in dialysis, completed his dialysis session, went, laid down, felt nauseous, had 3 episodes of coffee-ground emesis.? Of note patient was admitted to the hospital on January with the same findings, and at that time found to have diskitis and was treated with IV antibiotics and IV ceftriaxone in-patient and sent home on ceftriaxone for 4 weeks.? He also was seen by GI for the coffee-ground emesis which recommended continuing PPI. Patient denies taking any NSAIDs, he denies any abdominal pain, no melena, no hematochezia.? He denies any back pain, no fever or chills, he denies any headache, no change in vision, no chest pain, no shortness of breath, no urinary symptoms and no lower extremity In the ED, patient was hemodynamically stable Labs showed WBC count of 8.7, hemoglobin of 13.5, sodium of 142, creatinine of 5.33, lactic acid of 3.3 a troponin of 41 that increased to 90.? Patient denied any chest pain.? COVID-19 negative, stool occult blood positive. Chest x-ray negative Pt was started on IV PPI IV and admitted for further management. Pt denies heartburn, dysphagia, recent change in appetite or weight. He reports having an EGD recently at [facility] which showed esophageal inflammation (report of the procedure is not available at the time of this dictation) IMAGING STUDIES: 05/12/[address] SCAN SHOWED: GASTROINTESTINAL TRACT: Surgical clips within the stomach. The small and large bowel are unremarkable. The appendix is unremarkable. Colonic diverticulosis is noted. VASCULAR: The abdominal aorta is normal in caliber. There is moderate calcific atherosclerotic disease. There are dystrophic calcifications of the arterials in multiple organs including the liver, spleen, and kidneys. Worsening lucencies and irregularity at L5-S1 appear worsened compared to the CT on 01/27/2021. IMPRESSION: Worsening lucencies and irregularity at L5-S1 appear worsened compared to the CT on 01/27/2021. This is suspicious for progression of osteomyelitis/discitis. ENDOSCOPIC STUDIES: 03/2020 EGD WAS PERFORMED BY DR. CARTER: Esophagus:? There was erosive esophagitis beginning at the EG junction at 35 cm and extending up to about 23 cm with ulceration and friability.? There was no bleeding. ? IMPRESSION:? Erosive esophagitis. ? RECOMMENDATIONS:? 1. Advanced diet. 2. B.i.d. proton pump inhibitor. 3. Discharge when stable. [facility] Past Medical History Medical History Acute upper gastrointestinal bleeding Amputation of left great toe CHF (congestive heart failure) Diabetes mellitus Discitis Discitis of lumbosacral region ESRD (end stage renal disease) GERD (gastroesophageal reflux disease) GI bleed HTN (hypertension) Hyperlipidemia Intractable back pain Presence of arteriovenous dialysis shunt Surgical History Surgical History H/O hernia repair H/O shoulder surgery Social History Social History Household Members: None Housing: Assisted Living Facility Do you presently have visiting nurse or other home services: Yes (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) Alcohol intake: never Patient Tobacco Use Status: Former Tobacco user Tobacco use type: Cigarette Second Hand Smoke Exposure: No Substance Use Type: Former Substance User service: No Current occupational status: retired Meds Allergies Allergy/AdvReac Type Severity Reaction Status Date / Time metformin [METFORMIN] Allergy Intermediate IT MESSES Verified 02/01/21 19:25 ME UP [id number] Reductase Allergy Intermediate NAUSEA Verified 02/01/21 19:25 Inhibitor [[id number] REDUCTASE INHIBITOR] cephalexin [From KEFLEX] Allergy Unknown UNSPECIFIED Verified 02/01/21 19:25 IT MESSES ME UP any form of statin Allergy Unknown Unknown Uncoded 02/01/21 19:25 glucophage Allergy Unknown Diarrhea Uncoded 02/01/21 19:25 Active Medications: Current Medications Acetaminophen (Acetaminophen 325 Mg Tablet) 650 mg PO Q6H PRN PRN Reason: Pain, Mild (Pain Scale 1-3) Carvedilol (Carvedilol 25 Mg Tablet) 25 mg PO BID [facility]I; Protocol Last Admin: 05/13/21 07:46 Dose: 25 mg Documented by: Lactic Acid (Ammonium Lactate 12 % Cream 140 Gm Tube) 1 appl TOPICAL BID PRN; Protocol PRN Reason: Dry Skin Non-Formulary Medication (Rosuvastatin [Crestor]) 5 mg PO DAILY [facility] Ondansetron HCl (Ondansetron Hcl 4 Mg/2 Ml Vial) 4 mg IVPUSH Q8H PRN PRN Reason: Nausea and Vomiting Pantoprazole Sodium (Pantoprazole Sodium 40 Mg/10 Ml Vial) 40 mg IVPUSH BID@0630,1630 [facility] Last Admin: 05/13/21 06:22 Dose: 40 mg Documented by: Pharmacy Consult (Consult Rx Perform Med Rec) 1 each MISCELLANE ONCE PRN PRN Reason: Consult order Polyethylene Glycol (Polyethylene Glycol 3350 17 Gm Powd.Pack) 17 gm PO DAILY [facility] Last Admin: 05/13/21 07:46 Dose: 17 gm Documented by: Sevelamer Carbonate (Sevelamer Carbonate Tablet 800 Mg Tablet) 2,400 mg PO TIDWM [facility] Last Admin: 05/13/21 07:48 Dose: 2,400 mg Documented by: Sodium Chloride (0.9 % Sodium Chloride Flush 3 Ml Syringe) 3 ml IVFLUSH QSHI Last Admin: 05/13/21 08:47 Dose: Not Given Documented by: Home Medications Medication Instructions Recorded Confirmed Last Taken Type aspirin 81 mg tablet,delayed 81 mg PO DAILY 03/30/20 05/12/21 03/30/20 History release polyethylene glycol 3350 17 gram 17 g PO DAILY 03/30/20 05/12/21 03/30/20 History oral powder packet (Miralax) rosuvastatin 5 mg tablet (Crestor) 5 mg PO DAILY 03/30/20 05/12/21 03/30/20 History sevelamer carbonate 800 mg tablet 2,400 mg PO TIDWM 03/30/20 05/12/21 03/30/20 History (Renvela) ammonium lactate 12 % topical cream 1 appl TOPICAL BID PRN 01/29/21 05/12/21 Unknown History ondansetron HCl 4 mg tablet 1 tab PO BID PRN 01/29/21 05/12/21 Unknown History omeprazole 20 mg capsule,delayed 1 cap PO BID 05/13/21 05/13/21 Unknown History release Physical Exam Vital Signs: Vital Signs: Last Vital Signs Temp 96.9 F 05/13/21 06:00 Pulse 80 05/13/21 07:51 Resp 14 05/13/21 07:51 BP 113/53 L 05/13/21 07:51 Pulse Ox 96 05/13/21 07:51 Body Mass Index 20.6 Const: General: healthy appearing and no acute distress Nutritional Appearance: average body habitus Orientation/consciousness: patient oriented x3 Limitations: no limitations HENMT: Head: Yes normal to inspection Ears: hearing grossly normal bilaterally Mouth: Normal oral and palatal mucosa present Eyes: Sclerae: sclerae normal Pupils: Equal, round and reactive pupils present Neck: Neck: Yes normal visual inspection Chest: Chest palpation & inspection: normal inspection of the chest Resp: Effort & Inspection: normal respiratory effort Auscultation: clear to auscultation bilaterally Cardio: Palpation: normal PMI Rate: regular rate Rhythm: regular rhythm Heart sounds: S1 normal heart sound present, S2 normal heart sound present and no murmurs GI: Palpation (GI): Soft to palpation, nontender and No hepatosplenomegaly present Auscultation: normal bowel sounds Rectal Exam - Male: Yes deferred Skin: General skin exam: no rashes or lesions noted Neuro: General: patient oriented x3, gait normal and moves all extremities Cranial nerves: Yes Equal, round and reactive pupils present Psych: Appearance: grossly normal Mental Status: mental status grossly normal Results Labs CBC & Chem 7: 05/13/21 06:14 05/13/21 06:14 Labs: Short CBC 05/12/21 05/13/21 Range/Units 20:03 06:14 WBC 8.7 11.0 H (4.8-10.8) X10*3/uL Hgb 13.5 L 12.3 L (14.0-18.0) g/dl Hct 43.7 37.9 L (42.0-52.0) % Plt Count 318 317 (160-400) X10*3/uL BMP 05/12/21 05/12/21 05/13/21 19:49 20:13 06:14 Sodium 142 140 Potassium 4.1 D 4.1 Chloride 91 L 91 L Carbon Dioxide 28 30 H BUN 21 H 30 H Creatinine 5.33 H* 6.03 H* Calcium 9.7 Cancelled 9.1 D Liver Function 05/12/21 Range/Units 19:49 Total Bilirubin 0.7 (0.0-1.0) mg/dL Direct Bilirubin 0.2 (0.0-0.5) mg/dL AST 24 (5-37) U/L ALT 13 (0-40) U/L Alkaline Phosphatase 105 D (39-117) U/L Albumin 4.5 D (3.5-5.0) g/dL Assessment and Plan (1) ESRD (end stage renal disease) on dialysis: Status: Acute (2) Acute upper GI bleed: Status: Acute (3) Erosive esophagitis: Status: Acute 70 YM with ESRD on HD, HTN, HLD admitted with coffee-ground emesis.? EGD a year ago showed erosive esophagitis. H & H has been stable. He reports having an EGD recently at [facility] which showed esophageal inflammation (report of the procedure is not available at the time of this dictation) - Records to be obtained from CD. RECOMMENDATIONS: 1. Continue IV PPI 2. Repeat CBC in the am - if stable, pt can be discharged home on high dose PPI after HD. Consider adding sucralfate twice a day since he has persistent esophagitis despite taking PPI. Procedures Date of Service Date of Service: 05/13/21
[2021-05-13 13:40] VITALS: BP 99/51; PULSE 72; RESP 18; TEMP 36.3; O2SAT 95
[2021-05-13 15:50] VITALS: BP 90/52; PULSE 52; RESP 18; TEMP 36.1; O2SAT 98
--- NOTE | 2021-05-13 16:54 | MHC.CM.PN ---
IMM , EMR REVIEWED, PT ADMITTED W/GI BLEED AND ELEVATED TROPONIN, PT IS A&O X4, PT REPORTS AT [facility] AND REPORTS HIS APT IS BEING [place], PT REPORTS HE HAS GRAB BARS IN , SHOWER CHAIR AND USES A CANE ABOUT 50% OF THE TIME, PT HAS ANTHROPOLOGIST PHYSICAL FROM [facility], PT VERIFIES PCP IS DR VU IN [place] AND HCP IS ON FILE FROM PREVIOUS ADMISSION. PT HAS DIALYSIS AT [facility] , PT AGREEABLE TO [facility] IF RECOMMENDED AT D/C AND PREFERS [facility], D/C PLAN: HOME VS HOME W/[facility], PT WILL NEED C SHUTTLE HOME.
[2021-05-13] MEDS: 0.9 % Sodium Chloride Flush 3 ML SYRINGE IVFLUSH ×2 (17:02→21:29)
[2021-05-13 21:26] VITALS: BP 90/52; PULSE 52
[2021-05-14] VITALS: BP 90/54; PULSE 73; RESP 18; TEMP 36; O2SAT 99
[2021-05-14] MEDS: ondansetron HCL 4 MG/2 ML VIAL IVPUSH ×2 (00:02→14:51)
[2021-05-14 04:15] VITALS: BP 90/52; PULSE 72; RESP 18; TEMP 36; O2SAT 98
[2021-05-14] MEDS: Pantoprazole Sodium 40 MG/10 ML VIAL IVPUSH ×2 (06:14→14:42)
[2021-05-14 06:19] LABS: Hematocrit 37.1 % (42.0-52.0); Hemoglobin 11.7 g/dl (14.0-18.0); Mean Corpuscular HGB Conc 31.5 g/dl (31.0-36.0); Mean Corpuscular Hemoglobin 29.2 pg (27.0-33.0); Mean Corpuscular Volume 92.5 fL (80.0-98.0); Platelet Count 287 X10*3/uL (160-400); Red Blood Count 4.01 X10*6/uL (4.60-5.80); Red Cell Distribution Width 16.3 % (11.0-16.0); White Blood Count 7.4 X10*3/uL (4.8-10.8)
[2021-05-14 06:34] LABS: Anion Gap 23 (12-20); Blood Urea Nitrogen 40 mg/dL (9-16); Calcium 8.8 mg/dL (8.4-10.2); Carbon Dioxide 30 mmol/L (22-29); Chloride 86 mmol/L (96-108); Glucose Random 194 mg/dL (60-115); Potassium 4.8 mmol/L (3.3-5.1); Sodium 134 mmol/L (135-145)
[2021-05-14 06:39] LABS: Estimated Glomerular Filt Rate 7
[2021-05-14 07:06] LABS: Erythrocyte Sedimentation Rate 57 MM/HR (0-15)
[2021-05-14] MEDS: Sevelamer Carbonate Tablet 800 MG TABLET 2400 MG PO ×3 (07:28→16:39)
[2021-05-14] MEDS: polyethylene glycoL 3350 17 GM POWD.PACK PO (07:29)
[2021-05-14] MEDS: 0.9 % Sodium Chloride Flush 3 ML SYRINGE IVFLUSH ×3 (07:31→20:58)
[2021-05-14 07:54] VITALS: BP 100/54; PULSE 69; RESP 18; TEMP 36.6; O2SAT 97
[2021-05-14] MEDS: Sucralfate 1 GM TABLET PO ×2 (09:21→16:41)
--- NOTE | 2021-05-14 11:38 | HO.PM.IMPN ---
Subjective Subjective Date of Service: 05/14/21 Interval History: no further emesis no back pain Review of Systems Review of Systems: Yes all other systems are reviewed and are negative Physical Exam Vital Signs: Vital Signs: Last Vital Signs Temp 97.8 F 05/14/21 07:54 Pulse 69 05/14/21 07:54 Resp 18 05/14/21 07:54 BP 100/54 L 05/14/21 07:54 Pulse Ox 97 05/14/21 07:54 Body Mass Index 20.6 Gen: in no acute distress HEENT: sclera anicteric, moist mucus membranes Neck: supple Lungs: clear to auscultation bilaterally Heart: regular rate and rhythm, no murmurs Abd: soft, non-tender, non-distended Ext: no edema Skin: warm/well-perfused Neuro: alert and oriented x3, no focal findings Psych: appropriate affect Objective Data Active Medications Acetaminophen (Acetaminophen 325 Mg Tablet) 650 mg PO Q6H PRN PRN Reason: Pain, Mild (Pain Scale 1-3) Carvedilol (Carvedilol 25 Mg Tablet) 25 mg PO BID [facility]; Protocol Last Admin: 05/14/21 09:21 Dose: Not Given Documented by: CAROL Non-Admin Reason: going to dialysis Lactic Acid (Ammonium Lactate 12 % Cream 140 Gm Tube) 1 appl TOPICAL BID PRN; Protocol PRN Reason: Dry Skin Non-Formulary Medication (Rosuvastatin [Crestor]) 5 mg PO DAILY [facility] Ondansetron HCl (Ondansetron Hcl 4 Mg/2 Ml Vial) 4 mg IVPUSH Q8H PRN PRN Reason: Nausea and Vomiting Last Admin: 05/14/21 00:02 Dose: 4 mg Documented by: LAWSON Pantoprazole Sodium (Pantoprazole Sodium 40 Mg/10 Ml Vial) 40 mg IVPUSH BID@0630,1630 [facility] Last Admin: 05/14/21 06:14 Dose: 40 mg Documented by: LAWSON Pharmacy Consult (Consult Rx Perform Med Rec) 1 each MISCELLANE ONCE PRN PRN Reason: Consult order Polyethylene Glycol (Polyethylene Glycol 3350 17 Gm Powd.Pack) 17 gm PO DAILY [facility] Last Admin: 05/14/21 07:29 Dose: 17 gm Documented by: CAROL Sevelamer Carbonate (Sevelamer Carbonate Tablet 800 Mg Tablet) 2,400 mg PO TIDWM [facility] Last Admin: 05/14/21 07:28 Dose: 2,400 mg Documented by: CAROL Sodium Chloride (0.9 % Sodium Chloride Flush 3 Ml Syringe) 3 ml IVFLUSH QSHIFT [facility] Last Admin: 05/14/21 07:31 Dose: 3 ml Documented by: CAROL Sucralfate (Sucralfate 1 Gm Tablet) 1 gm PO BIDAC [facility] Last Admin: 05/14/21 09:21 Dose: 1 gm Documented by: CAROL Labs CBC & Chem 7: 05/14/21 05:53 05/14/21 05:53 Labs: Laboratory Results - last 24 hr 05/14/21 05/14/21 05/14/21 05:53 05:53 05:53 MCV 92.5 MCH 29.2 MCHC 31.5 RDW 16.3 H Plt Count 287 MPV 9.0 L Absolute Nucleated RBC 0.000 Nucleated RBC % (auto) 0.0 ESR 57 H Anion Gap 23 H Estim Creat Clear Calc 8.0 Estimated GFR 7 Random Glucose 194 H Calcium 8.8 Microbiology Microbiology Results: Microbiology 05/12/21 21:50 Blood Culture - Preliminary Blood - Venous No growth after 24 hours. 05/12/21 20:04 Blood Culture - Preliminary Blood - Venous No growth after 24 hours. Assessment and Plan (1) Acute upper GI bleed: Status: Acute Assessment and Plan: hospital d#3 70yo M with ESRD on HD, prior lumbosacral vertebromyelitis treated with 4 wk of IV ceftriaxone in Jan-Feb 2021 admitted for concern GI bleed with coffee-ground emesis # lumbosacral osteomyelitis - worse radiographically but no clinical signs/symptoms.?BCx NGTD, ID consult pending. no ABX for now. # hematemesis - Hb stable. IV PPI. GI consulted- likely esophagitis; obtain records of last EGD from [facility]. add sucralfate # lactic acidosis - improved, d/c IV fluids # troponin elevation - no ischemic changes on EKG and no symptoms; likely due to ESRD # ESRD on HD MWF - Nephro consulted- continue HD - continue sevelamer # HLD - continue statin # HTN - continue carvedilol # VTE ppx - SCDs Quality Stroke Does the patient have a stroke diagnosis?: No VTE Prior VTE?: No VTE Risk Level:: Medical - moderate - high VTE Device Contraindication: N/A - Device Ordered VTE Drug Contraindication: Treatment Not Indicated
--- NOTE | 2021-05-14 11:43 | MHC.CM.PN ---
CURRENTLY AWAITING ID CONSULT AND RECORDS FROM [facility]. PLAN IS FOR DC TO HOME TOMORROW
--- NOTE | 2021-05-14 11:58 | P.CDIC_ITS ---
CDI Concurrent Query Documentation Clarification: PHYSICIAN'S DOCUMENTATION REQUEST Date of Query: 05/14/21 1159 Patient Name: Tab Purcell Admit Date: 05/12/21 Dear Doctor, A review of the medical record indicates additional documentation may be needed. Please review below and update the documentation accordingly. Specifics: Risk Factors/Clinical Indicators/Treatments ED: PMH- Congestive heart failure H&P: PMH-CHF History of echo performed. BM[ 135 H Please indicate in your progress notes if you are in agreement that the above diagnosis is valid for this patient: Congestive heart failure, acute, chronic, diastolic and/or systolic * Other (please specify) * Unable to determine Use of terms such as suspected, likely, concern for, or probable (associated with a specific diagnosis that is being evaluated, monitored, or treated as if it exists) are acceptable and can be coded in the inpatient setting, when documented at the time of discharge. Thank you, Julita Salazar [facility], CDIS Extension: [phone] Please use your independent medical judgment in providing your response. THIS QUERY IS PART OF THE PERMANENT MEDICAL RECORD Provider Response: Other Other Diagnosis: chron hfpef
[2021-05-14 14:48] VITALS: BP 98/56; PULSE 70; RESP 20; TEMP 36.4; O2SAT 95
[2021-05-14 15:14] VITALS: BMI 20.6
--- NOTE | 2021-05-14 15:21 | MHC.CLN ---
NUTRITION DIET CHANGED SINCE PATIENT IS DIABETIC AND RECEIVES HEMODIALYSIS. DIET=DIABETIC 1800 KCAL, 2 GRAM SODIUM, LOW PHOSPHOROUS, LOW POTASSIUM.
--- NOTE | 2021-05-14 21:31 | PM.PNNEP ---
Subjective Subjective Date of Service: 05/14/21 Interval history: no further emesis no back pain No CP Physical Exam Vital Signs: Vital Signs: Last Vital Signs Temp 97.5 F 05/14/21 14:48 Pulse 70 05/14/21 14:48 Resp 20 05/14/21 14:48 BP 98/56 L 05/14/21 14:48 Pulse Ox 95 05/14/21 14:48 Body Mass Index 20.6 Gen: in no acute distress HEENT: sclera anicteric, moist mucus membranes Neck: supple Lungs: clear to auscultation bilaterally Heart: regular rate and rhythm, no murmurs Abd: soft, non-tender, non-distended Ext: no edema Skin: warm/well-perfused Neuro: alert and oriented x3, no focal findings Psych: appropriate affect Objective Data Labs CBC & Chem 7: 05/14/21 05:53 05/14/21 05:53 Labs: Laboratory Results - last 24 hr 05/14/21 05/14/21 05/14/21 05:53 05:53 05:53 WBC 7.4 RBC 4.01 L Hgb 11.7 L Hct 37.1 L MCV 92.5 MCH 29.2 MCHC 31.5 RDW 16.3 H Plt Count 287 MPV 9.0 L Absolute Nucleated RBC 0.000 Nucleated RBC % (auto) 0.0 ESR 57 H Sodium 134 L Potassium 4.8 Chloride 86 L Carbon Dioxide 30 H Anion Gap 23 H BUN 40 H Creatinine 7.53 H* Estim Creat Clear Calc 8.0 Estimated GFR 7 Random Glucose 194 H Calcium 8.8 Microbiology Microbiology Results: Microbiology 05/12/21 21:50 Blood - Venous Blood Culture - Preliminary No growth after 24 hours. 05/12/21 20:04 Blood - Venous Blood Culture - Preliminary No growth after 24 hours. Procedures Date of Service Date of Service: 05/14/21 Assessment & Plan Assessment and plan (1) ESRD (end stage renal disease) on dialysis: Status: Acute (2) Erosive esophagitis: Status: Acute (3) Elevated troponin: Status: Acute Assessment and Plan: 1. 70yo M with ESRD on HD 2. Admitted for concern GI bleed with coffee-ground emesis 3. lumbosacral osteomyelitis 4. Lactic Acidosis 5. Increased Troponin - HD in AM Usually MWF - In House pt is TTS - HD in AM - IV PPI.? GI consult/ sucralfate - continue sevelamer - continue carvedilol Thx Will follow Dr. Gonsalves Time Spent With Patient Time: Total time spent is greater than 50% in coordination of care (as documented) at patient's floor/unit and/or counseling patient: Progress Note: Quality Stroke Does the patient have a stroke diagnosis?: No
[2021-05-14] MEDS: Calcium Carbonate 750 MG TAB.CHEW PO (21:40)
[2021-05-14 21:41] VITALS: BP 98/56; PULSE 70
[2021-05-15] VITALS: BP 97/51; PULSE 72; RESP 18; TEMP 36.3; O2SAT 98
[2021-05-15 03:53] VITALS: BP 103/53; PULSE 73; RESP 19; TEMP 36; O2SAT 98
[2021-05-15 06:19] LABS: Hematocrit 37.5 % (42.0-52.0)
[2021-05-15] MEDS: Pantoprazole Sodium 40 MG/10 ML VIAL IVPUSH (06:20)
[2021-05-15 07:43] VITALS: BP 114/56; PULSE 74; RESP 17; TEMP 36; O2SAT 99
[2021-05-15 07:47] VITALS: BP 114/56; PULSE 74
[2021-05-15] MEDS: carvediloL 25 MG TABLET PO (07:47)
[2021-05-15] MEDS: polyethylene glycoL 3350 17 GM POWD.PACK PO (07:47)
[2021-05-15] MEDS: Sucralfate 1 GM TABLET PO (07:47)
[2021-05-15] MEDS: Sevelamer Carbonate Tablet 800 MG TABLET 2400 MG PO (07:47)
[2021-05-15] MEDS: 0.9 % Sodium Chloride Flush 3 ML SYRINGE IVFLUSH (07:54)
--- NOTE | 2021-05-15 10:25 | MHC.CM.PN ---
Addendum entered by Priscilla Coughlin 05/15/21 14:30: spoke with staff nurse , patient feels well enough after his dialysis to take the hsoptial shuttle to his apt in [place], he reports his son is aware of his dischagre . patient also reported that he will call his [facility] transportation for his hemodialysis and resumption of his bumboater Original Note: nurse care information associate note electronic medical record reviewed along with case discussed with staff nurse and hospitalist, patient will be discharged today after completion of his hemodialysis. patient is aware of his discharge for today and that he will have dialuysis on 05/16/21 at the [facility] and then again on 05/16 and 05/18 sat and resume normal schedule m-w-. he is aware that he nededs to call his [facility] transportation for resumption of services to start tomorrow discharge plan home with the [place] vna to start on friday , (discussed that the vna can not come out until the weekend and ok with assigned hospitalsit for today ) ) [facility] - to restRT 05/16/21 AT 6AM AND THEN BECAUSE OF THE HOLIDAY ON SAT. PATIENT THEN TO RESUME HIS NORMAL SCHEDULE FOR M-W-- 6A, (CALLED AND SPOKE WITH [facility] FRANK HUERTA TO HER AND SHE WILL CONTACT DR KENYON FOR HEMODIALYSIS ORDERS PCP DR BASSEM VU PATIENT TO CALL FOR APPOINTMENT TFOR POST HOSPITAL DISCHARGE FOLLOW UP TRANSPORTATION HOSPITAL [facility] PATIENT IS AWARE OF THIS ALL PAPERWORK COMPLETED IMM UOPDATED
--- NOTE | 2021-05-15 12:11 | PM.PNNEP ---
Subjective Subjective Date of Service: 05/15/21 Interval history: seen on HD no back pain No CP Physical Exam Vital Signs: Vital Signs: Last Vital Signs Temp 96.8 F 05/15/21 07:43 Pulse 74 05/15/21 07:47 Resp 17 05/15/21 07:43 BP 114/56 L 05/15/21 07:47 Pulse Ox 99 05/15/21 07:43 Body Mass Index 20.6 Gen: in no acute distress HEENT: sclera anicteric, moist mucus membranes Neck: supple Lungs: clear to auscultation bilaterally Heart: regular rate and rhythm, no murmurs Abd: soft, non-tender, non-distended Ext: no edema Skin: warm/well-perfused Neuro: alert and oriented x3, no focal findings Psych: appropriate affect Objective Data Labs CBC & Chem 7: 05/15/21 05:55 05/14/21 05:53 Labs: Laboratory Results - last 24 hr 05/15/21 05:55 Hgb 12.0 L Hct 37.5 L Microbiology Microbiology Results: Microbiology 05/12/21 21:50 Blood - Venous Blood Culture - Preliminary No growth after 48 hours. 05/12/21 20:04 Blood - Venous Blood Culture - Preliminary No growth after 48 hours. Procedures Date of Service Date of Service: 05/15/21 Assessment & Plan Assessment and plan (1) ESRD (end stage renal disease) on dialysis: Status: Acute Assessment and Plan: 1. 70yo M with ESRD on HD 2. Admitted for concern GI bleed with coffee-ground emesis 3.? lumbosacral osteomyelitis 4. Lactic Acidosis 5. Increased Troponin - - HD to continue today - IV PPI.? GI consult/ sucralfate - continue sevelamer - continue carvedilol - For d/c today Thx Will follow Dr. Gonsalves Time Spent With Patient Time: Total time spent is greater than 50% in coordination of care (as documented) at patient's floor/unit and/or counseling patient: Progress Note: Quality Stroke Does the patient have a stroke diagnosis?: No
--- NOTE | 2021-05-15 12:45 | P.CNID_ITS ---
History of Present Illness Data of Consult Service Date: 05/15/21 Requesting physician: Deonna Serrano Primary Care Provider: Janiec Hollingsworth MD HPI Reason for consult: possible infection He presents with nausea and vomiting for a day. He has no complaints now. He had prior osteomyelitis lumbar spine and received Ceftriaxone for six weeks with dialysis He has no back pain He has no fever Review of Systems Review of Systems: Yes all other systems are reviewed and are negative PMFSH Past Medical History Medical History (Updated 05/15/21 @ 12:52 by Ashanti Ramirez MD) Acute upper gastrointestinal bleeding Amputation of left great toe CHF (congestive heart failure) Diabetes mellitus Discitis Discitis of lumbosacral region ESRD (end stage renal disease) GERD (gastroesophageal reflux disease) GI bleed HTN (hypertension) Hyperlipidemia Intractable back pain 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 Presence of arteriovenous dialysis shunt Surgical History Surgical History H/O hernia repair H/O shoulder surgery Social History Social History Household Members: None Housing: Assisted Living Facility Do you presently have visiting nurse or other home services: Yes (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) Alcohol intake: never Patient Tobacco Use Status: Former Tobacco user Tobacco use type: Cigarette Second Hand Smoke Exposure: No Substance Use Type: Former Substance User service: No Current occupational status: retired Meds Allergies Allergy/AdvReac Type Severity Reaction Status Date / Time metformin [METFORMIN] Allergy Intermediate IT MESSES Verified 02/01/21 19:25 ME UP [id number] Reductase Allergy Intermediate NAUSEA Verified 02/01/21 19:25 Inhibitor [[id number] REDUCTASE INHIBITOR] cephalexin [From KEFLEX] Allergy Unknown UNSPECIFIED Verified 02/01/21 19:25 IT MESSES ME UP any form of statin Allergy Unknown Unknown Uncoded 02/01/21 19:25 glucophage Allergy Unknown Diarrhea Uncoded 02/01/21 19:25 Active Medications: Current Medications Acetaminophen (Acetaminophen 325 Mg Tablet) 650 mg PO Q6H PRN PRN Reason: Pain, Mild (Pain Scale 1-3) Calcium Carbonate (Calcium Carbonate 750 Mg Tab.Chew) 750 mg PO Q6H PRN PRN Reason: Indigestion Last Admin: 05/14/21 21:40 Dose: 750 mg Documented by: Carvedilol (Carvedilol 25 Mg Tablet) 25 mg PO BID [facility]; Protocol Last Admin: 05/15/21 07:47 Dose: 25 mg Documented by: Lactic Acid (Ammonium Lactate 12 % Cream 140 Gm Tube) 1 appl TOPICAL BID PRN; Protocol PRN Reason: Dry Skin Non-Formulary Medication (Rosuvastatin [Crestor]) 5 mg PO DAILY [facility] Ondansetron HCl (Ondansetron Hcl 4 Mg/2 Ml Vial) 4 mg IVPUSH Q8H PRN PRN Reason: Nausea and Vomiting Last Admin: 05/14/21 14:51 Dose: 4 mg Documented by: Pantoprazole Sodium (Pantoprazole Sodium 40 Mg/10 Ml Vial) 40 mg IVPUSH BID@0 630,1630 [facility] Last Admin: 05/15/21 06:20 Dose: 40 mg Documented by: Pharmacy Consult (Consult Rx Perform Med Rec) 1 each MISCELLANE ONCE PRN PRN Reason: Consult order Polyethylene Glycol (Polyethylene Glycol 3350 17 Gm Powd.Pack) 17 gm PO DAILY [facility] Last Admin: 05/15/21 07:47 Dose: 17 gm Documented by: Sevelamer Carbonate (Sevelamer Carbonate Tablet 800 Mg Tablet) 2,400 mg PO TIDWM [facility] Last Admin: 05/15/21 11:18 Dose: Not Given Documented by: Sodium Chloride (0.9 % Sodium Chloride Flush 3 Ml Syringe) 3 ml IVFLUSH QSHIFT [facility] Last Admin: 05/15/21 07:54 Dose: 3 ml Documented by: Sucralfate (Sucralfate 1 Gm Tablet) 1 gm PO BIDAC [facility] Last Admin: 05/15/21 07:47 Dose: 1 gm Documented by: Home Medications Medication Instructions Recorded Confirmed Last Taken Type aspirin 81 mg tablet,delayed 81 mg PO DAILY 03/30/20 05/12/21 03/30/20 History release polyethylene glycol 3350 17 gram 17 g PO DAILY 03/30/20 05/12/21 03/30/20 History oral powder packet (Miralax) rosuvastatin 5 mg tablet (Crestor) 5 mg PO DAILY 03/30/20 05/12/21 03/30/20 History sevelamer carbonate 800 mg tablet 2,400 mg PO TIDWM 03/30/20 05/12/2120 History (Renvela) ammonium lactate 12 % topical cream 1 appl TOPICAL BID PRN 01/29/21 05/12/21 Unknown History ondansetron HCl 4 mg tablet 1 tab PO BID PRN 01/29/21 05/12/21 Unknown History omeprazole 20 mg capsule,delayed 1 cap PO BID 05/13/21 05/13/21 Unknown History release Physical Exam Vital Signs: Vital Signs: Last Vital Signs Temp 96.8 F 05/15/21 07:43 Pulse 74 05/15/21 07:47 Resp 17 05/15/21 07:43 BP 114/56 L 05/15/21 07:47 Pulse Ox 99 05/15/21 07:43 Body Mass Index 20.6 Const: General: cooperative Orientation/consciousness: patient oriented x3 Eyes: General: appearance normal, both eyes and all related structures Pupils: Equal, round and reactive pupils present Resp: Effort & Inspection: normal respiratory effort Cardio: Rate: regular rate Rhythm: regular rhythm GI: Palpation (GI): Soft to palpation and nontender : General: Yes no CVA tenderness Back/Spine/Pelvis: Back: no CVA tenderness Thoracic/Lumbar Spine: thoracic and lumbar spine normal to inspection Neuro: General: patient oriented x3 Cranial nerves: Yes Equal, round and reactive pupils present Results Labs CBC & Chem 7: 05/15/21 05:55 05/14/21 05:53 Labs: Short CBC 05/15/21 Range/Units 05:55 Hgb 12.0 L (14.0-18.0) g/dl Hct 37.5 L (42.0-52.0) % Microbiology Microbiology Results: Microbiology 05/12/21 21:50 Blood - Venous Blood Culture - Preliminary No growth after 48 hours. 05/12/21 20:04 Blood - Venous Blood Culture - Preliminary No growth after 48 hours. Assessment and Plan (1) Erosive esophagitis: Status: Acute (2) ESRD (end stage renal disease) on dialysis: Status: Acute (3) Osteomyelitis of lumbar spine: Status: Acute There is likely old osteomyelitic disease remnants There is no acute osteomyelitis No antibiotics at this time
--- NOTE | 2021-05-15 12:54 | W.MHC.F2F ---
Service Date Service Date: 05/15/21 Encounter Date of encounter: 05/15/21 Reasons for Services Reason for long term: central line care, medication management, medication treatment and teach disease management Reason for physical therapy: home safety and mobility, therapeutic exercises, gait/transfer training, assess need for DME, ADL training and energy conservation MD Overseeing Care: Janice Hollingsworth Homebound: Leaving the home is medically contraindicated at this time without the asist of a device and/or another person due th the listed conditions above and below. Reason homebound: immunosuppression / infection risk and weakness related to hospital stay Certification: Based on the above findings, I certify that this patient is confined to the home and needs intermittent long term care, physical therapy and/or speech therapy, or continues to need occupational therapy. The patient is under my care, and I have initiated the establishment of the plan of care. The patient will be followed by a physician who will periodically review the plan of care.
--- NOTE | 2021-05-15 13:03 | PM.DS ---
DS: Providers Provider Date of Service: 05/15/21 Date of admission: 05/12/21 22:11 Primary care physician: Janice Hollingsworth MD Consults: 05/12/21 22:19 Consult to Gastroenterology Routine Consulting Provider: Juaquin Vásquez Reason for consultation: Hematemesis Has provider been notified: No Consult to Nephrology Routine Consulting Provider: [facility] Reason for consultation: dialysis pt Has provider been notified: No 05/13/21 07:13 Consult to Infectious Diseases Routine Consulting Provider: Ashanti Ramirez Reason for consultation: worsening discitis/osteomyelitis Has provider been notified: No 05/13/21 08:12 Consult to Cardiology Routine Consulting Provider: Christopher Andrade Reason for consultation: hsTn-I 41->90->74 DS: Diagnosis Discharge Diagnosis (1) Erosive esophagitis: Status: Acute (2) ESRD (end stage renal disease) on dialysis: Status: Acute (3) History of osteomyelitis: Status: Acute DS: Summary Hospital Course Hospital Course: from admission H+P by hospitalist Jay Stallings, 05/12/21: This 70-year-old male with past medical history of ESRD on dialysis, HTN, HLD who presents to the emergency department with complaints of coffee-ground emesis.? Patient was in dialysis, completed his dialysis session, went, laid down, felt nauseous, had 3 episodes of coffee-ground emesis.? Of note patient was admitted to the hospital on January with the same findings, and at that time found to have diskitis he was treated with IV antibiotics and IV ceftriaxone in-patient and sent home on ceftriaxone for 4 weeks.? He also was seen by GI for the coffee-ground emesis which recommended continuing PPI. Patient denies taking any NSAIDs, he denies any abdominal pain, no melena, no hematochezia.? He denies any back pain, no fever or chills, he denies any headache, no change in vision, no chest pain, no shortness of breath, no urinary symptoms and no lower extremity On arrival to the ED patient hemodynamically stable Labs are significant for WBC count of 8.7, hemoglobin of 13.5, sodium of 142, creatinine of 5.33, lactic acid of 3.3 a troponin of 41 that increased to 90.? Patient denies any chest pain.? COVID-19 negative, stool occult blood positive. Chest x-ray negative At this time will continue his PPI IV Will be admitted for further management This 70yo M with ESRD on HD, prior lumbosacral vertebromyelitis treated with 4 wk of IV ceftriaxone in Jan-Feb 2021 was admitted for concern GI bleed with coffee-ground emesis. Hematemesis did not recur and hemoglobin remained stable. GI was consulted and prior records reviewed. He had just had an EGD at [facility] on 05/09/[address] Victoria demonstrating severe reflux esophagitis, which was biopsied; small hiatal hernia; endoclip in the stomach; and normal duodenum. Sucralfate was added to his bid PPI. Other issues noted during the hospitalization were a question of lumbosacral osteomyelitis on the CT A/P. The patient had no clinical signs and symptoms, blood cultures were negative, and inflammatory markers were improved from prior; ID was consulted and the finding was attributed to old osteomyelitis, not active disease. The patient also had indeterminate-rnage troponin elevation without ischemic EKG changes or anginal symptoms; this finding was attributed to ESRD. Dialysis was given inpatient. The patient was discharged home with VNA services and ought to follow up with his primary care doctor and his contract administrator in 1-2 weeks. Time Spent with Patient Time attestation: Total time spent providing and/or coordinating discharge services: Discharge coordination time: Greater than 30 minutes Quality: Stroke Does the patient have a stroke diagnosis?: No Physical Exam Vital Signs: Vital Signs: Last Vital Signs Temp 96.8 F 05/15/21 07:43 Pulse 74 05/15/21 07:47 Resp 17 05/15/21 07:43 BP 114/56 L 05/15/21 07:47 Pulse Ox 99 05/15/21 07:43 Body Mass Index 20.6 Gen: in no acute distress HEENT: sclera anicteric, moist mucus membranes Neck: supple Lungs: clear to auscultation bilaterally Heart: regular rate and rhythm, no murmurs Abd: soft, non-tender, non-distended Ext: no edema Skin: warm/well-perfused Neuro: alert and oriented x3, no focal findings Psych: appropriate affect DS: Data Data Completed and Pending Completed studies during hospitalization [Text1]: Laboratory Results WBC 7.4 X10*3/uL (4.8-10.8) 05/14/21 05:53 RBC 4.01 X10*6/uL (4.60-5.80) L 05/14/21 05:53 Hgb 12.0 g/dl (14.0-18.0) L 05/15/21 05:55 Hct 37.5 % (42.0-52.0) L 05/15/21 05:55 MCV 92.5 fL (80.0-98.0) 05/14/21 05:53 MCH 29.2 pg (27.0-33.0) 05/14/21 05:53 MCHC 31.5 g/dl (31.0-36.0) 05/14/21 05:53 RDW 16.3 % (11.0-16.0) H 05/14/21 05:53 Plt Count 287 X10*3/uL (160-400) 05/14/21 05:53 MPV 9.0 fL (9.4-12.4) L 05/14/21 05:53 Immature Gran % (Auto) 0.3 % (0.0-0.4) 05/13/21 06:14 Neut % (Auto) 84.0 % (45-73) H 05/13/21 06:14 Lymph % (Auto) 8.6 % (20-40) L 05/13/21 06:14 [place] % (Auto) 7.0 % (2-11) 05/13/21 06:14 Eos % (Auto) 0.0 % (0-4) 05/13/21 06:14 Baso % (Auto) 0.1 % (0-2) 05/13/21 06:14 Lymph # (Auto) 1.0 X10*3/uL (1.2-4.9) L 05/13/21 06:14 [place] # (Auto) 0.8 X10*3/uL (0.1-1.2) 05/13/21 06:14 Eos # (Auto) 0.0 X10*3/uL (0.0-0.4) 05/13/21 06:14 Baso # (Auto) 0.0 X10*3/uL (0.0-0.2) 05/13/21 06:14 Abs Immat Gran (auto) 0.03 X10*3/uL (0.00-0.03) 05/13/21 06:14 Absolute Neuts (auto) 9.3 x10*3/uL (2.0-8.3) H 05/13/21 06:14 Absolute Nucleated RBC 0.000 X10*3/uL (0.0-0.012) 05/14/21 05:53 Nucleated RBC % (auto) 0.0 /100WBC (0.0-0.2) 05/14/21 05:53 ESR 57 MM/HR (0-15) H 05/14/21 05:53 PT 11.6 SEC (9.9-13.0) 05/12/21 21:49 INR 1.0 (0.9-1.1) 05/12/21 21:49 APTT 39.8 SEC (24.1-38.0) H 05/12/21 21:49 VBG pH 7.47 (7.32-7.43) H 05/12/21 21:53 VBG pCO2 48 mmHg 05/12/21 21:53 VBG pO2 45 mmHg 05/12/21 21:53 VBG HCO3 35 mmol/L (22-26) H 05/12/21 21:53 VBG O2 Saturation 64.0 % 05/12/21 21:53 VBG Base Excess 10.0 mmol/L 05/12/21 21:53 Sodium 134 mmol/L (135-145) L 05/14/21 05:53 Potassium 4.8 mmol/L (3.3-5.1) 05/14/21 05:53 Chloride 86 mmol/L (96-108) L 05/14/21 05:53 Carbon Dioxide 30 mmol/L (22-29) H 05/14/21 05:53 Anion Gap 23 (12-20) H 05/14/21 05:53 BUN 40 mg/dL (9-16) H 05/14/21 05:53 Creatinine 7.53 mg/dL (0.5-1.4) H* 05/14/21 05:53 Estim Creat Clear Calc 8.0 05/14/21 05:53 Estimated GFR 7 05/14/21 05:53 POC Glucose 172 mg/dL (60-115) H 05/12/21 23:39 Random Glucose 194 mg/dL (60-115) H 05/14/21 05:53 Lactic Acid 3.2 mmol/L (0.5-2.0) H* 05/13/21 00:26 Lactic Acid Fup @ 2Hr 4.0 mmol/L (0.5-2.0) H* 05/13/21 03:26 Lactic Acid Fup @ 4Hr 2.9 mmol/L (0.5-2.0) H* 05/13/21 06:14 Calcium 8.8 mg/dL (8.4-10.2) 05/14/21 05:53 Phosphorus Cancelled 05/12/21 20:13 Magnesium Cancelled 05/12/21 20:13 Total Bilirubin 0.7 mg/dL (0.0-1.0) 05/12/21 19:49 Direct Bilirubin 0.2 mg/dL (0.0-0.5) 05/12/21 19:49 AST 24 U/L (5-37) 05/12/21 19:49 ALT 13 U/L (0-40) 05/12/21 19:49 Alkaline Phosphatase 105 U/L (39-117) D 05/12/21 19:49 Troponin I High Sens 74.3 ng/L (<3.5-35.0) H* 05/13/21 07:19 C-Reactive Protein 4.44 mg/dL (< or = 0.50) H 05/13/21 06:14 B-Natriuretic Peptide 135 pg/mL (<100) H 05/12/21 19:49 Total Protein 8.6 g/dL (6.5-8.0) H D 05/12/21 19:49 Albumin 4.5 g/dL (3.5-5.0) D 05/12/21 19:49 Stool Occult Blood POSITIVE (NEGATIVE) 05/12/21 20:44 Ethyl Alcohol < 10 mg/dL 05/12/21 20:03 COVID-19 (ERIKA) Negative (Negative) 05/12/21 20:04 COVID-19 Clin Com See Note 05/12/21 20:04 Blood Type O Positive 05/12/21 21:49 Antibody Screen NEGATIVE 05/12/21 21:49 Impressions Chest X-Ray 05/12/21 20:01 IMPRESSION: Unremarkable examination. Abdomen/Pelvis CT 05/12/21 20:02 IMPRESSION: Worsening lucencies and irregularity at L5-S1 appear worsened compared to the CT on 01/27/2021. This is suspicious for progression of osteomyelitis/discitis. Labs on day of discharge: Laboratory Results - last 24 hr 05/15/21 05:55 Hgb 12.0 L Hct 37.5 L Preliminary micro results at discharge 05/12/21 21:50 Blood Culture - Preliminary Blood - Venous No growth after 48 hours. 05/12/21 20:04 Blood Culture - Preliminary Blood - Venous No growth after 48 hours. Discharge Plan Discharge Patient Disposition: Home Health Service Discharge Diagnosis: upper GI bleed, esophagitis, ESRD Referrals: [facility] [Other] - 1 Day (renal physician dr dawson will call with hemodialysis orders. (schedule may be different -holiday week- dialysis on friday05/16/21 and then sat 05/19/21 at 6 am, then your dialysis schedule will go back to to your friday -friday at 6a, and transport via [facility]) [facility] [Outside] - 3-5 Days ([facility] for nursing assessment and medication reconcialtion to start over weekend ) Janice Hollingsworth MD [Primary Care Provider] - 1 Week Discharge Medications: New sucralfate 1 gram Tablet 1 g PO BIDAC Qty: 60 RF: 0 Continued polyethylene glycol 3350 [Miralax] 17 gram Powder In Packet 17 g PO DAILY RF: 0 aspirin 81 mg Tablet,Delayed Release (Dr/Ec) 81 mg PO DAILY RF: 0 Hold Instructions: Resume on 04/17/20. monitor H&H outpatient with PCP and Nephrology- is going to repeat the labs hematocrit and renal function electrolytes outpatient. rosuvastatin [Crestor] 5 mg Tablet 5 mg PO DAILY RF: 0 sevelamer carbonate [Renvela] 800 mg Tablet 2,400 mg PO TIDWM RF: 0 carvedilol 25 mg Tablet 25 mg PO BID Qty: 60 RF: 0 ondansetron HCl 4 mg tablet 1 tab PO BID PRN (Reason: nausea/vomiting) RF: 0 ammonium lactate 12 % cream 1 appl topical BID PRN (Reason: Dry Skin) RF: 0 omeprazole 20 mg capsule,delayed release(DR/EC) 1 cap PO BID RF: 0 Discharge Orders: Discharge Order (Routine); Ordered 05/15/21 Ordered By: Deonna Serrano Diet: advance to usual diet Activity on Discharge: As tolerated Stand Alone Forms: Patient Portal Discharge page Care Plan Goals: prevention of GI bleeding Health Concerns: erosive esophagitis Plan of Treatment: continue omeprazole 20 mg twice daily and add sucralfate 1 g twice daily Assessment: See Discharge Summary Patient Instructions: Esophagitis (DC)
== END 2021-05-15 14:47 | disposition home health service (06) | DRG 368 ==
LOC: HO.ED 21:11 → HO.EDOVER 22:27 → HO.S3 05-13 11:51
PROVIDERS: Physician Assistant; Admitting Provider Internal Medicine; Emergency Provider Emergency Medicine Emergency Medical Services; PCP Family Medicine; Visit Provider Family Medicine
DX: K21.01 Gastro-esophageal reflux disease with esophagitis, with bleeding (principal); N18.6 End stage renal disease; I13.2 Hypertensive heart and chronic kidney disease with heart failure and with stage 5 chronic kidney disease, or end stage renal disease; E87.2 Acidosis; I50.32 Chronic diastolic (congestive) heart failure; M46.26 Osteomyelitis of vertebra, lumbar region; E78.5 Hyperlipidemia, unspecified; E11.22 Type 2 diabetes mellitus with diabetic chronic kidney disease; Z99.2 Dependence on renal dialysis; Z20.822 Contact with and (suspected) exposure to COVID-19; Z87.891 Personal history of nicotine dependence; Z79.82 Long term (current) use of aspirin; Z79.899 Other long term (current) drug therapy
CPT/HCPCS: 36415; 71045; 74176; 80048; 80076; 82077; 82272; 82803; 82947; 83605; 83735; 83880; 84100; 84484; 85014; 85018; 85025; 85027; 85610; 85652; 85730; 86140; 86850; 86900; 86901; 87040; 87635; 90999; 93005; 99285; J2405